=== PATIENT | female | born 1940 | race American Indian/Alaskan Native ===

== ENCOUNTER → 2017-01-29 | Outpatient (CLI) | payer MEDICARE, OTHER ==
[2017-01-29 09:38] LABS: ALANINE AMINOTRANSFERASE 21 U/L (9-52); ALBUMIN 4.1 g/dL (3.5-5.0); ALKALINE PHOSPHATASE 56 U/L (38-126); ANION GAP 10 (5-19); ASPARTATE AMINO TRANSFERASE 24 U/L (14-36); BILIRUBIN,TOTAL 0.9 mg/dL (0.2-1.3); BLOOD UREA NITROGEN 13 mg/dL (7-20); CALCIUM 9.7 mg/dL (8.4-10.2); CARBON DIOXIDE 27 mmol/L (22-30); CHLORIDE 105 mmol/L (98-107); CHOLESTEROL 126.62 mg/dL (0-200); CREATININE RESULT 0.82 mg/dL (0.52-1.25); Direct HDL 66 mg/dL (>40); GLUCOSE 84 mg/dL (75-110); POTASSIUM 4.3 mmol/L (3.6-5.0); SODIUM 142.2 mmol/L (137-145); TOTAL PROTEIN 6.9 g/dL (6.3-8.2); TRIGLYCERIDES 71 mg/dL (<150)
[2017-01-29 09:49] LABS: DIRECT LDL 39 mg/dL (<100)
== END ==
LOC: OD 08:30
PROVIDERS: ATTEND Internal Medicine Cardiovascular Disease
DX: E78.5 Hyperlipidemia, unspecified (principal); I10 Essential (primary) hypertension; Z79.899 Other long term (current) drug therapy
CPT/HCPCS: 36415; 80048; 80061; 80076; 83036; 84443

== ENCOUNTER 2017-04-15 16:12 | Inpatient (IN) | payer MEDICARE, OTHER ==
--- NOTE | 2017-04-15 16:43 | ER Document Report ---
ED Medical Screen (RME) - General Chief Complaint: Abnormal Lab Results Stated Complaint: WEAKNESS Time Seen by Provider: 04/15/17 16:40 Notes: 76-year-old female who states she has felt very "weak and fatigued" for the last month. She also states some black stools. She went to her primary care physician and did a blood on Friday and was told that her "iron was low". She denies any chest pain, shortness of breath, abdominal pain, diarrhea, or fever. She states some nausea without vomiting. She states her last colonoscopy was around 4 years ago. She denies a history of GI bleeding. TRAVEL OUTSIDE OF THE [place] IN LAST 30 DAYS: No - Related Data Allergies/Adverse Reactions: pseudoephedrine HCl [From [employer] [employer]] Allergy (Mild, Verified 04/15/17 16:21) nausea and vomiting Past Medical History - Past Medical History Cardiac Medical History: Reports: Hx Coronary Artery Disease, Hx Hypercholesterolemia, Hx Hypertension, Hx Peripheral Vascular Disease Denies: Hx Heart Attack Pulmonary Medical History: Denies: Hx Asthma Neurological Medical History: Denies: Hx Cerebrovascular Accident, Hx Seizures Renal/ Medical History: Denies: Hx Peritoneal Dialysis GI Medical History: Denies: Hx Hepatitis, Hx Hiatal Hernia, Hx Ulcer Infectious Medical History: Denies: Hx Hepatitis Past Surgical History: Reports: Hx Cardiac Catheterization, Hx Carotid Endarterectomy - Right carotid endarterectomy 2006, Hx Coronary Artery Bypass Graft - Four-vessel bypass 2005, Hx Coronary Stent, Hx Hysterectomy, Hx Open Heart Surgery - quad bypass 10/2006, Hx Orthopedic Surgery. Denies: Hx Mastectomy, Hx Pacemaker - Immunizations Hx Diphtheria, Pertussis, Tetanus Vaccination: Yes Physical Exam - Vital signs Vitals: Temp Pulse Resp BP Pulse Ox 99.0 F 73 18 150/47 H 96 04/15/17 16:25 04/15/17 16:25 04/15/17 16:25 04/15/17 16:25 04/15/17 16:25 Course - Vital Signs Vital signs: Temp Pulse Resp BP Pulse Ox 99.0 F 73 18 150/47 H 96 04/15/17 16:25 04/15/17 16:25 04/15/17 16:25 04/15/17 16:25 04/15/17 16:25
[2017-04-15 18:00] LABS: ABSOLUTE BASOPHILS # (AUTO) 0.1 10^3/uL (0.0-0.2); ABSOLUTE EOSINOPHILS # (AUTO) 0.2 10^3/uL (0.0-0.6); ABSOLUTE LYMPHOCYTES (AUTO) 1.3 10^3/uL (0.5-4.7); ABSOLUTE MONOCYTES (AUTO) 0.4 10^3/uL (0.1-1.4); ABSOLUTE NEUT (AUTO) 1.7 10^3/uL (1.7-8.2); BASOPHILS % (AUTO) 2.8 % (0-2); LYMPHOCYTES % (AUTO) 33.9 % (13-45); MEAN CORPUSCULAR HEMOGLOBIN 20.9 pg (27.0-33.4); MEAN CORPUSCULAR HGB CONC 30.2 g/dL (32.0-36.0); MEAN CORPUSCULAR VOLUME 69 fl (80-97); MONOCYTES % (AUTO) 11.4 % (3-13); RED BLOOD COUNT 2.89 10^6/uL (3.72-5.28); RED CELL DISTRIBUTION WIDTH 19.9 % (11.5-14.0); SEGMENTED NEUTROPHILS % (AUTO) 46.9 % (42-78); WHITE BLOOD COUNT 3.7 10^3/uL (4.0-10.5)
[2017-04-15 18:15] LABS: ANION GAP 9 (5-19); BLOOD UREA NITROGEN 16 mg/dL (7-20); CALCIUM 9.6 mg/dL (8.4-10.2); CARBON DIOXIDE 27 mmol/L (22-30); CHLORIDE 104 mmol/L (98-107); CREATININE RESULT 0.77 mg/dL (0.52-1.25); GLUCOSE 95 mg/dL (75-110); SODIUM 139.7 mmol/L (137-145)
--- NOTE | 2017-04-15 19:33 | ER Document Report ---
ED General - General Mode of Arrival: Ambulatory Information source: Patient TRAVEL OUTSIDE OF THE [place] IN LAST 30 DAYS: No - HPI Patient complains to provider of: Generalized Weakness and abnormal lab work Onset: Other - 4 days ago Associated symptoms: Other - see notes above <RUTH OWUSU - Last Filed: 04/15/17 19:41> <VALERIANOTONO SHERLEY - Last Filed: 04/15/17 22:36> - General Chief Complaint: Abnormal Lab Results Stated Complaint: WEAKNESS Time Seen by Provider: 04/15/17 19:20 Notes: 76 year old female with history of iron deficiency, hypertension, hyperlipidemia , CAD, and on Plavix (secondary to coronary blockages; 2005) presents to the ED complaining of generalized weakness on going for 2 months and anemia secondary to blood work performed at Dr. Chavez's office 4 days ago. Patient additionally states that she has had episodes of dark bloody stool 3 days ago, dizziness, lightheadedness, and nausea, but denies any vomiting. Patient had a colonoscopy with Dr. Cornell and has an appointment with him on 04/25/2017 secondary to the bloody stool. Patient has received blood transfusions during her open heart surgery and reports no complications. (RUTH OWUSU) - Related Data Allergies/Adverse Reactions: pseudoephedrine HCl [From Sudafed] Allergy (Mild, Verified 04/15/17 16:21) nausea and vomiting Home Medications: Current Home Medications Albuterol Sulfate [Ventolin Hfa] 2 puff IH Q4HP PRN 04/15/17 [History] Ascorbic Acid [Vitamin C 500 mg Tablet] 500 mg PO DAILY 04/15/17 [History] Aspirin [Aspirin EC] 81 mg PO DAILY 04/15/17 [History] Atorvastatin Calcium [Lipitor 80 mg Tablet] 80 mg PO QHS 04/15/17 [History] Cholecalciferol (Vitamin D3) [Vitamin D3 1000 Unit Tablet] 1,000 unit PO DAILY 04/15/17 [History] Clopidogrel Bisulfate [Plavix 75 mg Tablet] 75 mg PO DAILY 04/15/17 [History] Cyanocobalamin (Vitamin B-12) [Vitamin B-12 500 mcg Tablet] 1,500 mg PO DAILY [History] Lisinopril [Zestril] 10 mg PO BID 04/15/17 [History] Loratadine [Claritin 10 mg Tablet] 10 mg PO DAILY 04/15/17 [History] [place]-3 Fatty Acids/Fish Oil [Fish Oil 1,000 mg Capsule] 1,000 mg PO BID [History] Past Medical History - General Information source: Patient - Social History Smoking Status: Unknown if Ever Smoked Family History: Reviewed & Not Pertinent Patient has suicidal ideation: No Patient has homicidal ideation: No - Past Medical History Cardiac Medical History: Reports: Hx Coronary Artery Disease, Hx Hypercholesterolemia, Hx Hypertension, Hx Peripheral Vascular Disease GI Medical History: Denies: Hx Ulcer Past Surgical History: Reports: Hx Cardiac Catheterization, Hx Carotid Endarterectomy - Right carotid endarterectomy 2006, Hx Coronary Artery Bypass Graft - Four-vessel bypass 2005, Hx Coronary Stent, Hx Hysterectomy, Hx Open Heart Surgery - quad bypass 10/2006, Hx Orthopedic Surgery - Immunizations Hx Diphtheria, Pertussis, Tetanus Vaccination: Yes Hx Pneumococcal Vaccination: 08/31/12 <RUTH OWUSU - Last Filed: 04/15/17 19:41> Review of Systems - Review of Systems Constitutional: See HPI, Malaise, Weakness, Recent illness - low blood count EENT: No symptoms reported Cardiovascular: See HPI, Dizziness, Lightheaded Respiratory: No symptoms reported Gastrointestinal: See HPI, Nausea, Black stools. denies: Vomiting Genitourinary: No symptoms reported Female Genitourinary: No symptoms reported Musculoskeletal: No symptoms reported Skin: No symptoms reported Hematologic/Lymphatic: No symptoms reported Neurological/Psychological: No symptoms reported -: Yes All other systems reviewed and negative <RUTH OWUSU - Last Filed: 04/15/17 19:41> Physical Exam - Vital signs Interpretation: Normal - General General appearance: Appears well, Alert In distress: None - HEENT Head: Normocephalic, Atraumatic Eyes: Pale conjunctiva Pupils: PERRL Pharynx: Normal Neck: Normal - Respiratory Respiratory status: No respiratory distress Chest status: Nontender Breath sounds: Normal Chest palpation: Normal - Cardiovascular Rhythm: Regular Heart sounds: Normal auscultation Murmur: No - Abdominal Inspection: Normal Distension: No distension Bowel sounds: Normal Tenderness: Nontender Organomegaly: No organomegaly - Rectal Tenderness: No Stool: Black Hemorrhoids: External - Back Back: Normal, Nontender - Extremities General upper extremity: Normal inspection, Nontender, Normal color, Normal ROM , Normal temperature General lower extremity: Normal inspection, Nontender, Normal color, Normal ROM , Normal temperature, Normal weight bearing. No: Jonathan's sign - Neurological Neuro grossly intact: Yes Cognition: Normal Orientation: AAOx4 [place] Coma Scale Eye Opening: Spontaneous [place] Coma Scale Verbal: Oriented [place]ce Coma Scale Motor: Obeys Commands Alyce Coma Scale Total: 15 Speech: Normal Motor strength normal: LUE, RUE, LLE, RLE Sensory: Normal - Psychological Associated symptoms: Normal affect, Normal mood - Skin Skin Temperature: Warm Skin Moisture: Dry Skin Color: Normal <TONO BAL - Last Filed: 04/15/17 22:36> - Vital signs Vitals: Temp Pulse Resp BP Pulse Ox 99.0 F 73 18 150/47 H 96 04/15/17 16:25 04/15/17 16:25 04/15/17 16:25 04/15/17 16:25 04/15/17 16:25 Course - Laboratory Result Diagrams: 04/15/17 16:45 04/15/17 16:45 - Consults Dr. Cornell Time consulted: 19:28 Dr. Flores Time consulted: 19:30 <RUTH OWUSU - Last Filed: 04/15/17 19:41> - Laboratory Result Diagrams: 04/15/17 16:45 04/15/17 16:45 <TONO BAL - Last Filed: 04/15/17 22:36> - Re-evaluation Re-evalutation: 04/15/17 Patient is a 76-year-old female who comes in after having dark and then bloody stool at home. Patient states that she has not had any bloody stool today, just dark. Patient does have dark stool on exam. Her globin is 6. Patient has been discussed with her GI doctor who will see her in consult. She is been discussed with the hospitalist service and will be admitted to the [facility]. Vitals are stable. No bright red blood per rectum. No vomiting. No abdominal pain. Patient appears well other than being pale. Stable at time of admission. (TONO BAL) - Vital Signs Vital signs: Temp Pulse Resp BP Pulse Ox 97.6 F 70 16 174/67 H 96 04/15/17 22:21 04/15/17 22:21 04/15/17 22:21 04/15/17 22:21 04/15/17 22:21 - Laboratory Laboratory results interpreted by me: 04/15/17 04/15/17 16:45 16:45 WBC 3.7 L RBC 2.89 L Hgb 6.0 L Hct 20.0 L MCV 69 L MCH 20.9 L MCHC 30.2 L RDW 19.9 H Basophils % 2.8 H Crossmatch See Detail - Consults Dr. Cornell Reason for consultation: 04/15/17 19:28 Patient was discussed with Dr. Cornell who agrees to consult the patient. (RUTH OWUSU) Dr. Flores Reason for consultation: 04/15/17 19:30 Patient was discussed with Dr. Flores who agrees to admit the patient and have Dr. Cornell consult the patient. (RUTH OWUSU) Critical Care Note - Critical Care Note Total time excluding time spent on procedures (mins): 40 - evaluation and management of symptomatic anemia, initiation of transfusion, consultation with specialist, coordination of admission <TONO BAL - Last Filed: 04/15/17 22:36> Discharge <RUTH OWUSU - Last Filed: 04/15/17 19:41> - Discharge Admitting Provider: Alexsander Flores Unit Admitted: I[facility]U <TONO BAL - Last Filed: 04/15/17 22:36> - Discharge Clinical Impression: Secondary anemia GI bleed Qualifiers: GI bleed type/associated pathology: unspecified gastrointestinal hemorrhage type Qualified Code(s): K92.2 - Gastrointestinal hemorrhage, unspecified Disposition: ADMITTED INPATIENT Scribe Attestation: 04/15/17 22:36 I personally performed the services described in the documentation, reviewed and edited the documentation which was dictated to the scribe in my presence, and it accurately records my words and actions. (TONO BAL) Scribe Documentation - Scribe Written by Scribe:: Sergio Cruz, 04/15/2017 1936 acting as scribe for :: Valeriano <RUTH OWUSU - Last Filed: 04/15/17 19:41>
[2017-04-15] MEDS ORDERED: NORMAL SALINE 250 ML IV PRN (19:34)
[2017-04-15] MEDS ORDERED: BISACODYL 5 MG TABEC PO ONE (21:00)
[2017-04-15 22:03] LABS: ADD ON TESTING BLD IN LAB ACKNOWLEDGE
[2017-04-15 22:13] LABS: PARTIAL THROMBOPLASTIN TIME 30.3 SEC (23.5-35.8)
--- NOTE | 2017-04-15 22:14 | EKG REPORT ---
SEVERITY:- BORDERLINE ECG - SINUS RHYTHM BORDERLINE T ABNORMALITIES, ANT-LAT LEADS : Confirmed by: Kizzy De La Torre MD 15-Apr-2017 22:13:40
[2017-04-15] MEDS: NORMAL SALINE 250 ML IV PRN (22:18)
[2017-04-15 22:34] LABS: ALANINE AMINOTRANSFERASE 25 U/L (9-52); ALBUMIN 3.7 g/dL (3.5-5.0); ALKALINE PHOSPHATASE 52 U/L (38-126); ASPARTATE AMINO TRANSFERASE 21 U/L (14-36); BILIRUBIN,DIRECT 0.2 mg/dL (0.0-0.4); BILIRUBIN,TOTAL 0.6 mg/dL (0.2-1.3); MAGNESIUM 1.7 mg/dL (1.6-2.3); TOTAL PROTEIN 6.1 g/dL (6.3-8.2)
[2017-04-15] MEDS ORDERED: NORMAL SALINE 1000 ML 1,000 ML IV PRN (22:38)
[2017-04-15] MEDS ORDERED: ACETAMINOPHEN 325 MG TABLET PO PRN (22:45)
[2017-04-15 22:49] LABS: FERRITIN 5.57 ng/mL (11.1-264.0)
[2017-04-15] MEDS ORDERED: ALBUTEROL SULFATE HFA (90 MCG/PUFF) 200 PUFF/8.5 GM MDI IH PRN (22:51)
--- NOTE | 2017-04-15 23:06 | PDOC H&P ---
History of Present Illness Admission Date/PCP: 04/15/17 22:29 PCP mG Rolle Patient complains of: weakness History of Present Illness: MICHELLE VELASQUEZ is a 76 year old -Citizen Of [place] female, with known coronary artery disease, having undergone a four-vessel bypass in 2005, also status post implantation of several stents, with last stent implant in May 01 of last year. Presents to the emergency room for evaluation of a 2 month history of generalized weakness and occasional lightheadedness, along with anemia per blood work performed at her primary care provider's office 4 days ago. Had a dark bloody stool 3 days ago. Was not frankly melenic, by her description. Associated near-syncope, but no fly syncope. No chest or abdominal pain, fever or chills. No prior such abnormal stools. No history of peptic ulcer disease. Prior to my seeing the patient, the emergency room physician did speak with Dr. Cornell, who actually has patient scheduled for colonoscopy the of this month. He has agreed to see the patient in consultation. She has been hemodynamically stable. Patient has been discussed with emergency room physician who evaluated the patient. . Laboratory results are listed in [employer] and are reviewed. EKG reviewed. And compared to a prior tracing from May 05 of last year. Social history/personal habits: . Lives alone. One daughter. Retired. Former smoker; no tobacco use since last year. No alcohol or illicit drug use. Allergies/adverse reactions are listed in [employer] and are reviewed. Home medications Home medications initially autopopulated into [employer] may not accurately reflect patient's true medications, dosages, and/or frequencies. trim technician has reconciled medications. REVIEW OF SYSTEMS: Constitutional: No fever or chills. Eyes: Wears glasses. ENT: No swallowing problems or complaints. No hearing problems or complaints. Pulmonary: No current complaints. Cardiovascular: No current complaints, including chest pain. Gastrointestinal: See history and present illness. Skin: No current complaints, including rashes. Hematologic: No unusual easy bruising or bleeding. See history and present illness. Neurologic: No current complaints, including numbness or tingling. Musculoskeletal: Joint pain from arthritis. Psychiatric: No current complaints, including anxiety or depression. Endocrine: No current complaints, including polyuria. Genitourinary: No current complaints, including dysuria. PHYSICAL EXAMINATION: 5 feet 7 inches tall. 66.2 kg. BMI 22.9 kg/m. Blood pressure 163/54. Pulse 75 and regular. 97% saturation on room air. Respirations are 22 and unlabored. Temperature 97.8. Thin otherwise well-developed -Citizen [place] female appearing approximately her stated age. Pleasant awake alert and cooperative. No obvious distress other than perhaps somewhat anxious. Skin is warm and dry. No grossly obvious evidence of rash in areas of skin examined. No subcutaneous nodules palpated. ENT: Hearing grossly normal to normal conversation. Tongue midline on protrusion pink and slightly tacky. Eyes: No scleral icterus. Pupils equal and reactive to light at 4 mm. pale conjunctivae. Neck is supple and nontender to gentle active range of motion and palpation. Midline trachea. No palpable thyroid nodule mass enlargement or tenderness. Lymphatic: No palpable cervical or clavicular nodes. Neck and lymphatic exams limited by patient body habitus. Psychiatric: Reasonable insight into acute and chronic medical issues. Oriented to time location and why here. Lungs: Auscultation reveals clear and equal breath sounds bilaterally. No use of accessory respiratory muscles. Cardiovascular: Heart regular rate and rhythm, without gallop murmur or rub. No carotid or abdominal aortic bruits. No ankle or pedal edema. Faintly palpable dorsalis pedis pulses. Abdomen: soft, slightly distended nontender with positive bowel sounds. Unable to adequately evaluate abdomen for masses or organomegaly due to distention. Extremities: Feet are warm and dry. No calf tenderness to compression. No grossly obvious visual evidence of calf swelling. Gentle manipulation of lower extremities fails to reveal any obvious evidence of injury or instability to knees hips or ankles. Neurologic: Moves upper extremities grossly normally. Patellar reflexes absent. Absent Babinski. Light touch is intact at feet. Dorsiflexion and plantarflexion of feet 5 / 5 and symmetric. Past Medical History Cardiac Medical History: Reports: Coronary Artery Disease, Hyperlipidema, Hypertension, Peripheral Vascular Disease Denies: Congestive Heart Failure, DVT, Myocardial Infarction, Pulmonary Embolism Pulmonary Medical History: Reports: Chronic Obstructive Pulmonary Disease (COPD) Denies: Asthma, Sleep Apnea EENT Medical History: Reports: Eyes - Glasses Denies: Ears, Throat Neurological Medical History: Denies: Hemorrhagic CVA, Ischemic CVA, Seizures Endocrine Medical History: Denies: Diabetes Mellitus Type 1, Diabetes Mellitus Type 2, Hyperthyroidism, Hypothyroidism Renal/ Medical History: Reports: None GI Medical History: Denies: Cirrhosis, Gastroesophageal Reflux Disease, Hepatitis, Hiatal Hernia , Peptic Ulcer Disease Musculoskeltal Medical History: Reports: Arthritis Skin Medical History: Reports: None Psychiatric Medical History: Denies: Alcohol Dependency, Depression, General Anxiety Disorder, Substance Abuse, Tobacco Dependency Hematology: Denies: Anemia, Sickle Cell Disease Infectious Medical History: Denies: Clostridium Difficile, Hepatitis B, Hepatitis C, Methicillin- Resistant Staph Aureus Past Surgical History Past Surgical History: Reports: Carotid Endarterectomy - Right carotid endarterectomy 2006, Coronary Artery Bypass Graft - Four-vessel bypass 2005, Coronary Stent - Multiple; last implant May 01, 2016, Hysterectomy, Orthopedic Surgery Denies: Amputation, Mastectomy, Pacemaker Social History Information Source: Patient, Emergency Med Personnel, [facility] Records Lives with: Alone Smoking Status: Former Smoker Frequency of Alcohol Use: None Drugs: None Family History Family History: Reviewed & Not Pertinent Parental Family History Reviewed: Yes - mother of oral cancer. Father tuberculosis; negative patient TB check Children Family History Reviewed: Yes - Daughter is healthy Sibling(s) Family History Reviewed.: Yes - Brother and 2 sisters of lung problems. Medication/Allergy Home Medications: Albuterol Sulfate [Ventolin Hfa] 2 puff IH Q4HP PRN 04/15/17 Ascorbic Acid [Vitamin C 500 mg Tablet] 500 mg PO DAILY 04/15/17 Atorvastatin Calcium [Lipitor 80 mg Tablet] 80 mg PO QHS 04/15/17 Cholecalciferol (Vitamin D3) [Vitamin D3 1000 Unit Tablet] 1,000 unit PO DAILY 04/15/17 Clopidogrel Bisulfate [Plavix 75 mg Tablet] 75 mg PO DAILY 04/15/17 Cyanocobalamin (Vitamin B-12) [Vitamin B-12 500 mcg Tablet] 1,500 mg PO DAILY Lisinopril [Zestril] 10 mg PO BID 04/15/17 Loratadine [Claritin 10 mg Tablet] 10 mg PO DAILY 04/15/17 [place]-3 Fatty Acids/Fish Oil [Fish Oil 1,000 mg Capsule] 1,000 mg PO BID Ferrous Sulfate [Feosol 325 mg Tablet] 325 mg PO DAILY #30 tab 04/17/17 Pantoprazole Sodium [Protonix] 40 mg PO BID #60 tablet. 04/17/17 Allergies/Adverse Reactions: pseudoephedrine HCl [From Sudafed] Allergy (Mild, Verified 04/15/17 22:52) nausea and vomiting Physical Exam Vital Signs: Temp Pulse Resp BP Pulse Ox 97.6 F 70 16 174/67 H 96 04/15/17 22:21 04/15/17 22:21 04/15/17 22:21 04/15/17 22:21 04/15/17 22:21 Assessment & Plan - Diagnosis (1) Heme + stool Is this a current diagnosis for this admission?: YesPlan: 2 units to be transfused; ER physician has signed blood transfusion permit. More transfusion as necessary. Dr. Cornell of gastroenterology is aware patient has been admitted and will see in consultation. I have strongly encouraged patient not to get out of bed without notifying staff , to avoid a fall with injury. Knee high SCDs for DVT prophylaxis; with symptomatic anemia requiring transfusion, along with heme positive stool, we'll obviously forego Lovenox or heparin at this point in time. We'll also hold aspirin and Plavix get this point in time. Cardiology consult concerning continuation of her Plavix. Impression and plans were discussed with patient, who concurs. Time spent in evaluation and management of patient: 65 minutes. (2) Stented coronary artery Is this a current diagnosis for this admission?: Yes (3) HLD (hyperlipidemia) Qualifiers: Hyperlipidemia type: unspecified Qualified Code(s): E78.5 - Hyperlipidemia, unspecified Is this a current diagnosis for this admission?: YesPlan: Resume home medications as appropriate once these have been reviewed. (4) HTN (hypertension) Qualifiers: Hypertension type: essential hypertension Qualified Code(s): I10 - Essential (primary) hypertension Is this a current diagnosis for this admission?: YesPlan: Resume home medications as appropriate once these have been reviewed. (5) Symptomatic anemia Is this a current diagnosis for this admission?: Yes - Inpatient Certification Based on my medical assessment, after consideration of the patient's comorbidities, presenting symptoms, or acuity I expect that the services needed warrant INPATIENT care.: Yes I certify that my determination is in accordance with my understanding of Medicare's requirements for reasonable and necessary INPATIENT services [42 CFR 412.3e].: Yes Medical Necessity: Need Close Monitoring Due to Risk of Patient Decompensation, Need For Continuous Telemetry Monitoring, Risk of Complication if Not Cared For in Hospital, Risk of Diagnosis Which Will Require Inpatient Eval/Care/Monitoring Post Hospital Care: D/C or Transfer Summary
[2017-04-15] MEDS: SUCRALFATE 1 GM TABLET PO SCH (23:28)
[2017-04-16] MEDS: NORMAL SALINE 250 ML IV PRN (00:58)
[2017-04-16 03:03] LABS: ABSOLUTE BASOPHILS # (AUTO) 0.1 10^3/uL (0.0-0.2); ABSOLUTE EOSINOPHILS # (AUTO) 0.3 10^3/uL (0.0-0.6); ABSOLUTE LYMPHOCYTES (AUTO) 1.6 10^3/uL (0.5-4.7); ABSOLUTE MONOCYTES (AUTO) 0.5 10^3/uL (0.1-1.4); ABSOLUTE NEUT (AUTO) 3.6 10^3/uL (1.7-8.2); BASOPHILS % (AUTO) 1.5 % (0-2); EOSINOPHILS % (AUTO) 4.4 % (0-6); HGB HCT DIFFERENCE -1.1; LYMPHOCYTES % (AUTO) 26.3 % (13-45); MEAN CORPUSCULAR HEMOGLOBIN 23.7 pg (27.0-33.4); MONOCYTES % (AUTO) 7.7 % (3-13); RED BLOOD COUNT 3.92 10^6/uL (3.72-5.28); RED CELL DISTRIBUTION WIDTH 21.7 % (11.5-14.0); SEGMENTED NEUTROPHILS % (AUTO) 60.1 % (42-78)
[2017-04-16 03:16] LABS: ANION GAP 8 (5-19); BLOOD UREA NITROGEN 14 mg/dL (7-20); CALCIUM 9.5 mg/dL (8.4-10.2); CARBON DIOXIDE 27 mmol/L (22-30); CHLORIDE 107 mmol/L (98-107); CREATININE RESULT 0.77 mg/dL (0.52-1.25); GLUCOSE 83 mg/dL (75-110); POTASSIUM 4.1 mmol/L (3.6-5.0); SODIUM 141.5 mmol/L (137-145)
[2017-04-16 03:21] LABS: HEMOGLOBIN 9.3 g/dL (12.0-15.5)
[2017-04-16 03:22] LABS: MEAN CORPUSCULAR VOLUME 74 fl (80-97)
[2017-04-16 03:26] LABS: ANISOCYTOSIS 3+; HYPOCHROMASIA 1+; MICROCYTOSIS 1+; OVALOCYTES SLIGHT; POIKILOCYTOSIS 1+; POLYCHROMASIA SLIGHT; TOXIC GRANULATION SLIGHT
[2017-04-16] MEDS: SUCRALFATE 1 GM TABLET PO SCH ×3 (06:00→18:00)
[2017-04-16] MEDS ORDERED: PEG 3350/NA SULF,BICARB,CL/KCL 4000 ML PO ONE (07:00)
[2017-04-16] MEDS: CYANOCOBALAMIN (VITAMIN B-12) 1,000 MCG TABLET PO SCH (10:00)
[2017-04-16] MEDS: CHOLECALCIFEROL (D3) 1,000 UNIT TABLET PO SCH (10:00)
[2017-04-16] MEDS: PANTOPRAZOLE SODIUM 40 MG VIAL IV SCH (10:00)
[2017-04-16] MEDS: LISINOPRIL 10 MG TABLET PO SCH ×2 (10:00→18:00)
[2017-04-16] MEDS ORDERED: MAGNESIUM CITRATE 296 ML BOTTLE ONE (10:19)
[2017-04-16] MEDS ORDERED: NALOXONE HCL INJ/PF 0.4 MG/1 ML SDV ONE (16:06)
[2017-04-16] MEDS ORDERED: MIDAZOLAM 2 MG/2 ML INJ ONE (16:06)
[2017-04-16] MEDS ORDERED: FENTANYL CITRATE INJ/PF 100 MCG/2 ML AMPUL ONE (16:07)
[2017-04-16] MEDS ORDERED: EPINEPHRINE INJ 1 MG/10 ML DISP.SYRIN ONE (16:07)
[2017-04-16] MEDS ORDERED: FLUMAZENIL INJ 0.5 MG/5 ML VIAL IV ONE (16:07)
[2017-04-16] MEDS ORDERED: GLUCAGON,HUMAN RECOMB 1 MG INJ ONE (16:07)
--- NOTE | 2017-04-16 16:40 | PROGRESS NOTE E ---
Progress Note NAME: MICHELLE VELASQUEZ : 1940 AGE: 76Y DATE: 04/16/2017 ROOM: 330 SUBJECTIVE: The patient was admitted last night by Dr. Flores, the covering prepress proofer, for bright red blood per rectum and presumptive lower GI bleed with a hemoglobin at that time of 6. She is now status post 2 units of packed red blood cells and tolerated it without difficulty. She has no complaints to me at present, though reports still having bloody stools. She denies abdominal pain, chest pain, palpitations, shortness of breath, fevers, or chills. Case discussed with the nurse at the bedside, nurses notes reviewed. OBJECTIVE: VITAL SIGNS: Stable. GENERAL: I find her resting in bed without difficulty or distress. She is alert and oriented to person, place, and time, color is good, and she is not diaphoretic. She is breathing easily without difficulty. LUNGS: Clear to auscultation. CARDIAC: Regular rate and rhythm. She does have a 2/6 holosystolic murmur heard best at the right second intercostal space. It is nonradiating in nature. ABDOMEN: Soft, nondistended. She does have point tenderness to the epigastrium on deep palpation that she states "has been there for many years" and is no different than usual. I cannot palpate any masses or organomegaly. She has good bowel sounds throughout the abdomen. 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 I do not appreciate an abdominal bruit. EXTREMITIES: Warm with good strength, 5/5, in the upper and lower extremities and good muscle tone. LABS: Reviewed, a repeat H and H status post transfusion is still pending as of this dictation. ASSESSMENT: 1. GASTROINTESTINAL BLEED, PRESUMPTIVE LOWER. 2. ACUTE BLOOD LOSS ANEMIA. 3. CORONARY ARTERY DISEASE ON DUAL ANTIPLATELET THERAPY WITH STENT PLACEMENT IN MAY 2015. PLAN: Dr. Cornell has been consulted and beginning bowel prep, according to the nurses, in anticipation of lower endoscopy at some point in the next 24 hours. We will continue to trend our H and H every 8 hours and transfuse as needed. We will continue Protonix b.i.d. We will continue to hold the Plavix and aspirin therapy. Awaiting Dr. Aguilar, the staff anesthetist's, evaluation on whether it is necessary to continue aspirin and Plavix going forward. DICTATING PHYSICIAN: STU RAMOS M.D. [id number] PHY#: [id number] ID: [id number] JOB#: [id number] ACCT: [id number] cc: >
[2017-04-16] MEDS ORDERED: MIDAZOLAM 2 MG/2 ML INJ IV ONE ×2 (19:23→19:37)
[2017-04-16] MEDS ORDERED: FENTANYL CITRATE INJ/PF 100 MCG/2 ML AMPUL IV ONE ×2 (19:25→19:35)
[2017-04-16] MEDS ORDERED: ATORVASTATIN CALCIUM 80 MG TABLET PO SCH (22:00)
--- NOTE | 2017-04-16 22:39 | PDOC CONSULTATION ---
Consultation Consult Date: 04/16/17 Attending physician:: EVARISTO VILLAR Consult reason:: Coronary artery disease, PVD History of Present Illness Admission Date/PCP: 04/15/17 22:36 Patient complains of: GI bleed History of Present Illness: MICHELLE VELASQUEZ is a 76 year old -[place] female, with known coronary artery disease, having undergone a 3-vessel bypass in 2005, also status post implantation of several stents, with last stent implant in May 01 of last year. Presents to the emergency room for evaluation of a 2 month history of generalized weakness and occasional lightheadedness, along with anemia secondary to blood work performed at her primary care provider's office 4 days ago. Had a dark bloody stool 3 days ago. Was not frankly melenic, by her description. Associated near-syncope, but no fly syncope. No chest or abdominal pain, fever or chills. No prior such abnormal stools. No history of peptic ulcer disease. She has been hemodynamically stable. This history was reviewed, confirmed and supplemented. Patient denied any recent chest discomfort. Patient does have shortness of breath, fatigue and tiredness on exertion. Patient also gives history of habitual snoring and never been tested for sleep apnea. Past Medical History Cardiac Medical History: Reports: Coronary Artery Disease, Hyperlipidema, Hypertension, Peripheral Vascular Disease Denies: Congestive Heart Failure, DVT, Myocardial Infarction, Pulmonary Embolism Pulmonary Medical History: Reports: Chronic Obstructive Pulmonary Disease (COPD) Denies: Asthma, Sleep Apnea EENT Medical History: Reports: Eyes - Glasses Denies: Ears, Throat Neurological Medical History: Denies: Hemorrhagic CVA, Ischemic CVA, Seizures Endocrine Medical History: Denies: Diabetes Mellitus Type 1, Diabetes Mellitus Type 2, Hyperthyroidism, Hypothyroidism Renal/ Medical History: Reports: None GI Medical History: Denies: Cirrhosis, Gastroesophageal Reflux Disease, Hepatitis, Hiatal Hernia , Peptic Ulcer Disease Musculoskeltal Medical History: Reports: Arthritis Skin Medical History: Reports: None Psychiatric Medical History: Denies: Alcohol Dependency, Depression, General Anxiety Disorder, Substance Abuse, Tobacco Dependency Hematology: Denies: Anemia, Sickle Cell Disease Infectious Medical History: Denies: Clostridium Difficile, Hepatitis B, Hepatitis C, Methicillin- Resistant Staph Aureus Past Surgical History Past Surgical History: Reports: Cardiac Catheterization, Carotid Endarterectomy - Right carotid endarterectomy 2006, Coronary Artery Bypass Graft - Four-vessel bypass 2006, Coronary Stent - Multiple; last implant May 01, 2016, Hysterectomy , Orthopedic Surgery Denies: Amputation, Mastectomy, Pacemaker Social History Information Source: Patient Lives with: Alone Smoking Status: Former Smoker Frequency of Alcohol Use: None Drugs: None - Advance Directive Resuscitation Status: Full Code Surrogate healthcare decision maker:: Patient's daughter is surrogate decision-maker Family History Family History: CAD Parental Family History Reviewed: Yes Children Family History Reviewed: Yes Sibling(s) Family History Reviewed.: Yes Medication/Allergy Home Medications: Albuterol Sulfate [Ventolin Hfa] 2 puff IH Q4HP PRN 04/15/17 Ascorbic Acid [Vitamin C 500 mg Tablet] 500 mg PO DAILY 04/15/17 Atorvastatin Calcium [Lipitor 80 mg Tablet] 80 mg PO QHS 04/15/17 Cholecalciferol (Vitamin D3) [Vitamin D3 1000 Unit Tablet] 1,000 unit PO DAILY 04/15/17 Clopidogrel Bisulfate [Plavix 75 mg Tablet] 75 mg PO DAILY 04/15/17 Cyanocobalamin (Vitamin B-12) [Vitamin B-12 500 mcg Tablet] 1,500 mg PO DAILY Lisinopril [Zestril] 10 mg PO BID 04/15/17 Loratadine [Claritin 10 mg Tablet] 10 mg PO DAILY 04/15/17 Sanborn-3 Fatty Acids/Fish Oil [Fish Oil 1,000 mg Capsule] 1,000 mg PO BID Ferrous Sulfate [Feosol 325 mg Tablet] 325 mg PO DAILY #30 tab 04/17/17 Pantoprazole Sodium [Protonix] 40 mg PO BID #60 tablet. 04/17/17 Allergies/Adverse Reactions: pseudoephedrine HCl [From Sudafed] Allergy (Mild, Verified 04/15/17 22:52) nausea and vomiting Review of Systems Review of Systems: Please see history of present illness and past medical history as wall. Constitutional: No fever or chills reported. Head : No recent chronic headaches, recent head injury. Eyes: No recent eye pain, diplopia, redness, discharge, acute visual changes. Ears: No recent chronic ear pain, acute hearing loss, ear discharge. Oral cavity: No recent ulcerations, bleeding, oral cavity discomfort. Neck: No recent acute neck pain reported. Hematologic: No recent easy bruising or bleeding or hematologic malignancy reported. Lymphatic: No recent lymphatic malignancy, chronic lymphadenopathy reported yet Cardiovascular system review: See history of present illness. Respiratory system review: No recent chronic cough, hemoptysis, blood clots in the lungs reported. Mild Shortness of breath on exertion Gastrointestinal system review: Negative for any recent acute or chronic abdominal pain, positive for melena, recent change in bowel habits. Genitourinary system review: No recent acute or chronic hematuria, flank pain, UTI etc. reported. Skin system review: Negative for any recent abnormal bruising, no rash, no pruritus reported. Neurologic: No prior history of strokes, mini strokes, seizure disorder. Psychologic: No history of major psychosis or major depression reported. Musculoskeletal: Minor aches and pains reported. No acute joint swelling reported. Endocrine: No recent polyuria, polydipsia, recent heat or cold intolerance. Physical Exam Vital Signs: Temp Pulse Resp BP Pulse Ox 98.0 F 65 20 147/44 H 96 04/16/17 20:50 04/16/17 20:50 04/16/17 20:50 04/16/17 20:50 04/16/17 20:50 Intake & Output 04/15/17 04/16/17 04/17/17 06:59 06:59 06:59 Intake Total 300 Balance 300 Exam: GENERAL: well-nourished and in no acute distress. Alert and oriented x3 HEAD: Atraumatic, normocephalic. EYES: Pupils equal round and reactive to light, extraocular movements intact, sclera anicteric, conjunctiva are normal. ENT: TMs normal, nares patent, oropharynx clear without exudates. Moist mucous membranes. No oral ulcerations or bleeding gums noted NECK: supple without lymphadenopathy. Trachea is central. No cervical or axillary lymphadenopathy noted. Carotids are 2+, JVD WNL LUNGS: Respiration seems nonlabored, no significant accessory muscle action noted. Breath sounds clear to auscultation bilaterally and equal noted. No wheezes rales or rhonchi noted. No significant dullness noted on percussion. CHEST: Palpation of the chest wall shows no significant chest wall tenderness. No other significant abnormalities noted. 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 ABDOMEN: Soft, no significant tenderness appreciated, normoactive bowel sounds. No guarding, no rebound. No rigidity noted . No masses appreciated. EXTREMITIES: Pedal pulses are 1-2+, no calf tenderness noted. No clubbing or cyanosis.trace to 1+ pedal edema noted NEUROLOGICAL: Focused neurological exam showed no significant neurologic deficit. Normal speech, no focal weakness appreciated. PSYCH: Normal mood, normal affect. Judgment and insight within normal limits. SKIN: No significant ecchymosis, rash, ulcerations or signs of pruritus noted. MUSCULOSKELETAL EXAM: No significant joint swelling noted. Results Laboratory Results: 04/16/17 02:31 04/16/17 02:31 04/16/17 04/16/17 02:31 02:31 WBC 6.0 RBC 3.92 Hgb 9.3 L D Hct 29.0 L MCV 74 L D MCH 23.7 L MCHC 32.0 RDW 21.7 H Plt Count 168 Seg Neutrophils % 60.1 Lymphocytes % 26.3 Monocytes % 7.7 Eosinophils % 4.4 Basophils % 1.5 Absolute Neutrophils 3.6 Absolute Lymphocytes 1.6 Absolute Monocytes 0.5 Absolute Eosinophils 0.3 Absolute Basophils 0.1 Sodium 141.5 Potassium 4.1 Chloride 107 Carbon Dioxide 27 Anion Gap 8 BUN 14 Creatinine 0.77 Est GFR ( Amer) > 60 Est GFR (Non-Af Amer) > 60 Glucose 83 Calcium 9.5 EKG Comments: Sinus rhythm, minor nonspecific ST segment changes noted lateral chest lead but when compared to EKG from last year this is relatively unchanged. Assessment & Plan - Diagnosis (1) CAD (coronary artery disease) Qualifiers: Coronary Disease-Associated Artery/Lesion type: unspecified vessel or lesion type [place] vs. transplanted heart: [place] heart Associated angina: angina presence unspecified Qualified Code(s): I25.10 - Atherosclerotic heart disease of [place] coronary artery without angina pectoris Is this a current diagnosis for this admission?: Yes (2) GI bleed Qualifiers: GI bleed type/associated pathology: unspecified gastrointestinal hemorrhage type Qualified Code(s): K92.2 - Gastrointestinal hemorrhage, unspecified Is this a current diagnosis for this admission?: Yes (3) HLD (hyperlipidemia) Qualifiers: Hyperlipidemia type: unspecified Qualified Code(s): E78.5 - Hyperlipidemia, unspecified Is this a current diagnosis for this admission?: Yes (4) HTN (hypertension) Qualifiers: Hypertension type: essential hypertension Qualified Code(s): I10 - Essential (primary) hypertension Is this a current diagnosis for this admission?: Yes (5) Symptomatic anemia Is this a current diagnosis for this admission?: Yes (6) Stented coronary artery Is this a current diagnosis for this admission?: Yes - Notes Notes: Coronary artery disease: Patient seems to be symptomatically stable. Patient does have symptoms of dyspnea which is probably related to anemia and possibly deconditioning. Will order an 2D echo. Patient should receive beta-teresa, TAINA inhibitor, high potency statin, antiplatelet therapy. However in view of recent GI bleed, recommend stopping aspirin but continuing Plavix. If GI evaluation shows active ongoing bleeding then Plavix could be stopped for a week or 2 and then restarted. GI bleed: Being evaluated by roll line operator. Dyslipidemia: Continue aggressive statin therapy. Hypertension: Reasonably well controlled. Blood pressure goal in this patient is 135/85 or less. This was discussed with the patient. Currently blood pressure under reasonable control. Better medication for this patient are TAINA inhibitor/ARB/beta teresa etc. discussed side effects of uncontrolled hypertension and also severe hypotension. Symptomatic anemia: Patient status post transfusion. Coronary stent: Recommend continuing Plavix but stopping aspirin. If active bleeding then discontinue Plavix for a week or 2. Patient gives history of loud habitual snoring therefore would benefit from evaluation with a sleep study. This was discussed with the patient. She is able to agreeable to schedule this as an outpatient. - Time Time Spent: 50 to 70 Minutes - CODE STATUS was discussed, patient remains full code. Surrogate decision-maker patient's daughter. Multiple medical problems were addressed. More than 50% of the time spent coordinating care, discussing management plans with involved caregivers. Management plans discussed with involved personnels. Medical decision making was of moderate to high complexity , patient's has multiple severe comorbidities. Medications reviewed and adjusted accordingly: Yes
[2017-04-17] MEDS: PANTOPRAZOLE SODIUM 40 MG VIAL IV SCH ×2 (00:02→09:56)
[2017-04-17] MEDS: SUCRALFATE 1 GM TABLET PO SCH ×4 (00:03→17:39)
[2017-04-17 09:23] LABS: HEMATOCRIT 33.1 % (36.0-47.0); HEMOGLOBIN 10.3 g/dL (12.0-15.5); HGB HCT DIFFERENCE -2.2; MEAN CORPUSCULAR HGB CONC 31.3 g/dL (32.0-36.0); MEAN CORPUSCULAR VOLUME 74 fl (80-97); RED BLOOD COUNT 4.49 10^6/uL (3.72-5.28); RED CELL DISTRIBUTION WIDTH 21.6 % (11.5-14.0); WHITE BLOOD COUNT 5.2 10^3/uL (4.0-10.5)
--- NOTE | 2017-04-17 09:45 | OPERATIVE REPORT E ---
Operative Report NAME: MICHELLE VELASQUEZ : 1940 AGE: 76Y DATE OF SURGERY: 04/16/2017 ROOM: 330 PREOPERATIVE DIAGNOSIS: GI bleed. POSTOPERATIVE DIAGNOSES: 1. Mild to moderate antral gastritis. 2. Sigmoid diverticulosis with spasm. 3. Limited colonoscopy. OPERATION: 1. Esophagogastroduodenoscopy with biopsy. 2. Colonoscopy up to ascending colon. SURGEON: DIEGO ALMONTE M.D. ANESTHESIA: Versed 3 mg and fentanyl 100 mcg. TISSUE REMOVED OR ALTERED: Antral biopsy. PROCEDURE: After informed consent was obtained from the patient, conscious sedation was achieved. The upper endoscope was inserted into the esophagus and into the duodenum. The duodenum was normal. There was mild to moderate erythema noted in the antrum and biopsy was taken. The rest of the stomach and esophagus were normal. The colonoscope was inserted and advanced to the sigmoid colon. I could not advance the colonoscope through due sigmoid diverticulosis and spasm. The scope was then changed to an EGD scope, which I advanced through the ascending colon. No abnormality was identified in the colon except for the diverticulosis. She also has some hemorrhoids. She tolerated the procedure well. PLAN: Will repeat a colonoscopy as outpatient. She will also undergo capsule endoscopy of the small bowel. DICTATING PHYSICIAN: DIEGO ALMONTE M.D. [id number] [facility]#: [id number] 2005 ID: [id number] JOB#: [id number] ACCT: [id number] cc:DIEGO ALMONTE M.D. >
[2017-04-17] MEDS: CHOLECALCIFEROL (D3) 1,000 UNIT TABLET PO SCH (09:54)
[2017-04-17] MEDS: LISINOPRIL 10 MG TABLET PO SCH ×2 (09:55→17:39)
[2017-04-17] MEDS: CYANOCOBALAMIN (VITAMIN B-12) 1,000 MCG TABLET PO SCH (09:55)
[2017-04-17 10:05] LABS: HEMATOCRIT 30.6 % (36.0-47.0); HEMOGLOBIN 9.3 g/dL (12.0-15.5); HGB HCT DIFFERENCE -2.7; MEAN CORPUSCULAR HEMOGLOBIN 22.8 pg (27.0-33.4); MEAN CORPUSCULAR HGB CONC 30.6 g/dL (32.0-36.0); MEAN CORPUSCULAR VOLUME 75 fl (80-97); WHITE BLOOD COUNT 5.7 10^3/uL (4.0-10.5)
--- NOTE | 2017-04-17 10:25 | CONSULTATION REPORT E ---
Consultation Report NAME: MICHELLE VELASQUEZ : 1940 AGE: 76Y DATE: 04/15/2017 330 A TO: DIEGO ALMONTE M.D. FROM: EVARISTO VILLAR M.D. Requesting Physician Consultation requested by hospitalist. HISTORY OR PRESENT ILLNESS: A 76-year-old patient admitted through the emergency room with GI bleed and anemia. According to the patient, she has been seeing blood off and on for the last month. Her stool has been very dark and sometimes dark red. The last episode of bloody stool was a few days ago. She denies abdominal pain but did have some nausea. There is no vomiting. She has been feeling more tired in the last few weeks. On admission, her hemoglobin was 7. She has received 2 units of blood. PAST MEDICAL HISTORY: 1. Sigmoid diverticulosis in 2008. 2. Coronary artery disease. 3. Hyperlipidemia. 4. Hypertension. 5. Peripheral vascular disease. 6. COPD. 7. Sleep apnea. PAST SURGICAL HISTORY: 1. Colonoscopy in 2008. 2. Carotid endarterectomy. 3. Coronary artery bypass. 4. Coronary artery stent placement. The last one was in May 2016. SOCIAL HISTORY: Noncontributory. REVIEW OF SYSTEMS: Other than the above, this is noncontributory. PHYSICAL EXAMINATION: GENERAL: Shows a lady in no distress. HEENT: Some pallor but no jaundice. Oropharynx normal. NECK: No bruit. No JVD. CHEST: No deformity. Lungs with reduced breath sounds bilaterally. ABDOMEN: Soft and nontender. There is a midline scar. NEUROLOGIC: Grossly nonfocal. ASSESSMENT/PLAN: 1. RECTAL BLEEDING. She has seen blood off and on for the last month and sometimes her stool has been to blood. This may be a lower GI or upper GI bleed. She does have sigmoid diverticulosis. She will undergo an EGD and colonoscopy. If this is , capsule endoscopy of the small bowel will be performed as outpatient. DICTATING PHYSICIAN: DIEGO ALMONTE M.D. [id number] PHY#: [id number] 2004 ID: [id number] JOB#: [id number] ACCT: [id number] cc:DIEGO ALMONTE M.D. >
--- NOTE | 2017-04-17 13:54 | Physician Advisory Note ---
Physician Advisor ProgressNote .: Pursuant to the plan for [facility], I have reviewed the medical record for this patient. Physician Advisor Statement: Nice documentation of ABLAnemia - just need causality spelled out too. Possible documentation opportunities if attending agrees: 1. "ABLAnemia due to [acute on chronic?] GIBleeding, which is likely due to ___ ___" As always, if concerned about any unstable VS or abnormal labs, please comment on them & note what doing about them, & please document each day the potential clinical problems you are concerned could occur if pt not kept in hospital for tx at this time. Thanks for your help with documentation accuracy/specificity improvement! CK
--- NOTE | 2017-04-17 16:48 | XCELERA REPORT ---
[address] [address] Transthoracic Echocardiogram Report Name: MICHELLE VELASQUEZ Age: 76 yrs Gender: Female : 1940 Patient Status: Inpatient Patient Location: 3S\S\330\S\A Study Date: 04/17/2017 02:10 PM Height: 67 in Weight: 145 lb BSA: 1.8 m2 Procedure: A complete two-dimensional transthoracic echocardiogram was performed (2D, M-mode, spectral and color flow Doppler). The study was technically adequate with some images being suboptimal in quality. Reason For Study: CAD, dyspnea Ordering Physician: CINDA DUBON Performed By: Ernestina Parham Interpretation Summary The left ventricular ejection fraction is normal. There is mild concentric left ventricular hypertrophy. Doppler measurements suggest pseudonormalized left ventricular relaxation, which is associated with grade II/IV or mild to moderate diastolic dysfunction The left ventricle is grossly normal size. Wall motion cannot be accurately commented on, but no definite regional wall motion abnormalities noted. The right ventricle is normal in size, thickness and function The right ventricular systolic function is normal. The right atrium is normal in size The left atrium is mildly dilated. There is a trace amount of mitral regurgitation There is no mitral valve stenosis. There is moderate aortic stenosis There is a peak gradient of 40, mean gradient 20 mm of Hg. There is a trace or physiologic amount of tricuspid regurgitation Tricuspid regurgitation jet envelope not well defined to measure RV systolic pressure accurately. The aortic root is not well visualized but is probably normal size. The inferior vena cava appeared normal and decreased > 50% with respiration (RAP 5-10 mmHg) There is no pericardial effusion. MMode/2D Measurements \T\ Calculations RVDd: 2.3 cm LVIDd: 4.8 cmFS: 42.2 % Ao root diam: 2.4 cm IVSd: 0.98 cm LVIDs: 2.8 cmEDV(Teich): 106.3 ml LVPWd: 1.0 cmESV(Teich): 28.5 ml Ao root area: 4.6 cm2 EF(Teich): 73.2 % LA dimension: 4.1 cm LVOT diam: 2.0 cm LVOT area: 3.0 cm2 Doppler Measurements \T\ Calculations MV E max bri: MV P1/2t max bri: Ao V2 max: AI max bri: 108.6 cm/sec 107.1 cm/sec 318.1 cm/sec 349.1 cm/sec MV A max bri: MV P1/2t: 64.4 msec Ao max PG: AI max P.3 cm/sec MVA(P1/2t): 3.4 cm2 40.6 mmHg 48.7 mmHg MV E/A: 1.1 MV dec slope: Ao V2 mean: AI dec slope: 487.3 cm/sec2 213.7 cm/sec 146.0 cm/sec2 MV dec time: Ao mean PG: AI P1/2t: 0.23 sec 21.2 mmHg 700.2 msec Ao V2 VTI: 77.3 cm OKSANA(I,D): 0.61 cm2 OKSANA(V,D): 1.0 cm2 LV V1 max PG: SV(LVOT): 47.2 ml PA V2 max: PI end-d bri: 4.8 mmHg 89.8 cm/sec 138.5 cm/sec LV V1 mean PG: PA max P.1 mmHg 3.2 mmHg LV V1 max: 109.0 cm/sec LV V1 mean: 63.0 cm/sec LV V1 VTI: 15.8 cm Left Ventricle The left ventricle is grossly normal size. There is mild concentric left ventricular hypertrophy. The left ventricular ejection fraction is normal. Doppler measurements suggest pseudonormalized left ventricular relaxation, which is associated with grade II/IV or mild to moderate diastolic dysfunction. Wall motion cannot be accurately commented on, but no definite regional wall motion abnormalities noted. Right Ventricle The right ventricle is normal in size, thickness and function. There is normal right ventricular wall thickness. The right ventricular systolic function is normal. Atria The right atrium is normal in size. The left atrium is mildly dilated. Interarterial septum not well visualized and not well dopplered. Cannot comment on ASD/PFO presence. Mitral Valve There is mild mitral leaflet calcification. There is mild mitral annular calcification. There is no mitral valve stenosis. There is a trace amount of mitral regurgitation. Aortic Valve The aortic valve is calcified. There is moderate aortic stenosis. There is a peak gradient of 40, mean gradient 20 mm of Hg. Tricuspid Valve The tricuspid valve is not well visualized, but is grossly normal. There is no tricuspid stenosis. There is a trace or physiologic amount of tricuspid regurgitation. Tricuspid regurgitation jet envelope not well defined to measure RV systolic pressure accurately. Pulmonic Valve The pulmonic valve is not well visualized. Great Vessels The aortic root is not well visualized but is probably normal size. The inferior vena cava appeared normal and decreased > 50% with respiration (RAP 5-10 mmHg). Effusions There is no pericardial effusion. : CINDA DUBON > Cinda Dubon
[2017-04-17 18:25] VITALS: BP 166/81
--- NOTE | 2017-04-17 20:59 | PDOC PROGRESS REPORT ---
Subjective Progress Note for:: 04/17/17 Subjective:: Patient seems to be doing well. She underwent endoscopy without any complications. She was noted to have gastritis without any active bleed. Cardiac yuan she has remained stable without any recurrence of chest pain, palpitations, syncope, near syncope. She denied any others significant complaints. We discussed sleep apnea related symptoms. Patient does have loud habitual snoring and also daytime fatigue and sleepiness. Telemetry steps were reviewed. Patient maintaining sinus rhythm. No significant cardiac dysrhythmias were noted. Physical Exam Vital Signs: Temp Pulse Resp BP Pulse Ox 97.9 F 64 17 166/81 H 94 04/17/17 18:24 04/17/17 18:24 04/17/17 18:24 04/17/17 18:24 04/17/17 18:24 Intake & Output 04/16/17 04/17/17 04/18/17 06:59 06:59 06:59 Intake Total 300 1490 1270 Balance 300 1490 1270 Weight 63.7 kg Exam: GEN: NAD, patient alert oriented x3. Appearance and grooming WNL HEENT : Eyes: TONNY, Ears: No significant abnormalities, Nose: No significant abnormalities. normocephalic atraumatic. Flat midface (-), Receding chin (-) ORAL : Mallampati class III, highly arched palate (-) Tonsils: Not enlarged. NECK: no thyromegaly, no masses, trachea is central, JVD is not elevated, carotids are 2+ with bruit (-) RESP: lungs clear to auscultation bilaterally, no rales, wheezes or rhonchi., nonlabored, no use of accessory muscles of respiration CV: NL S1 and S2. 2/6 ejection systolic murmur noted in the aortic area and left sternal border. 1/6 pansystolic murmur noted at the apex. no S3, no S4 noted. No rub noted., gallops, rubs, clicks GI: abd NT to palpation, no masses, bowel sounds present, no guarding or rigidity noted. EXT: no clubbing, (-) cyanosis, edema (-), perpheral pulses diminished (+) MUSC/SKEL: no acute joint swelling noted. Muscle strength is generally intact. NEURO: no tremors. no significant focal neurological deficits are noted., sensation grossly intact, AO x 3 PSYCH: NL mood and affect. judgment and insight noted to be intact.. SKIN: (-) rash, (-)Signs of pruritus, (-) other significant abnormality Results Laboratory Results: 04/17/17 09:58 04/16/17 02:31 04/16/17 04/17/17 15:25 09:58 WBC 5.2 5.7 RBC 4.49 4.10 Hgb 10.3 L 9.3 L Hct 33.1 L 30.6 L MCV 74 L 75 L MCH 23.0 L 22.8 L MCHC 31.3 L 30.6 L RDW 21.6 H 22.0 H Plt Count 191 172 Assessment & Plan - Diagnosis (1) CAD (coronary artery disease) Qualifiers: Coronary Disease-Associated Artery/Lesion type: unspecified vessel or lesion type [place] vs. transplanted heart: [place] heart Associated angina: angina presence unspecified Qualified Code(s): I25.10 - Atherosclerotic heart disease of [place] coronary artery without angina pectoris Is this a current diagnosis for this admission?: Yes (2) GI bleed Qualifiers: GI bleed type/associated pathology: unspecified gastrointestinal hemorrhage type Qualified Code(s): K92.2 - Gastrointestinal hemorrhage, unspecified Is this a current diagnosis for this admission?: Yes (3) HLD (hyperlipidemia) Qualifiers: Hyperlipidemia type: unspecified Qualified Code(s): E78.5 - Hyperlipidemia, unspecified Is this a current diagnosis for this admission?: Yes (4) HTN (hypertension) Qualifiers: Hypertension type: essential hypertension Qualified Code(s): I10 - Essential (primary) hypertension Is this a current diagnosis for this admission?: Yes (5) Symptomatic anemia Is this a current diagnosis for this admission?: Yes (6) Stented coronary artery Is this a current diagnosis for this admission?: Yes (7) Sleep disorder breathing Is this a current diagnosis for this admission?: Yes - Notes Notes: CAD: Patient is symptomatically stable. There is no evidence of angina or no significant angina and angina equivalent symptoms. Patient advised aggressive risk factor modification and medical therapy. Medical regimen reviewed and is noted to be satisfactory. Hypertension: Blood-pressure is well controlled. Continue current medications. We discussed importance of weight loss, salt restriction, regular walking program and compliance with medication. BP goal is 135/95 or less. Dyslipidemia: Patient encouraged to continue with current anti-lipid therapy, low-cholesterol, low-fat, heart healthy diet, regular exercise program, weight loss etc. Informed that periodic lipid panel and liver panels may be needed. PVD:This is stable. Patient denied any ongoing rest or worsening claudications. Patient has no evidence of tissue loss or any decreased perfusion signs. Patient advised on regular walking program. proper footcare discussed. Patient advised to avoid any firsthand or secondhand smoking. Antiplatelet therapy discussed. Patient last stent was in May 2016. I have advised them to come off aspirin but continue Plavix. They do have an appointment to see primary care copy center associate. Whether to continue Plavix for longer period than a year would depend on his assessment. This was explained to the patient. Sleep disorder: Based on patient interview and physical exam, there is high probability of underlying sleep apnea syndrome. Discussed sleep hygiene. Reinforced adverse effect of untreated sleep apnea as regards increased risk of cardiovascular, cerebrovascular events, cardiac arrhythmias, accidents, difficult to control hypertension and diabetes etc. patient encouraged to schedule a sleep study. - Time Time with patient: Greater than 35 minutes - We had a long discussion with patient and her daughter about management of coronary artery disease and multiple peripheral vascular disease patient has. Discussed that treatment of sleep apnea if present will be an important aspect of management. In this regard patient was advised sleep hygiene. Patient also encouraged to follow-up and scheduled a sleep study. Patient can follow-up with her primary care copy center associate for management of cardiovascular and peripheral vascular disease. CODE STATUS was discussed, patient remains full code. Surrogate decision-maker unchanged. Multiple medical problems were addressed. More than 50% of the time spent coordinating care, discussing management plans with involved caregivers. Management plans discussed with involved personnels. Medical decision making was of moderate to high complexity, patient's has multiple severe comorbidities. Medications reviewed and adjusted accordingly: Yes
--- NOTE | 2017-04-17 21:33 | DISCHARGE SUMMARY E ---
Discharge Summary NAME: MICHELLE VELASQUEZ : 1940 AGE: 76Y ADMITTED: 04/15/2017 DISCHARGED: 04/17/2017 CONSULTANTS: Lamberto Cornell M.D., Gastroenterology. DISCHARGE DIAGNOSES: 1. Acute gastritis. 2. Diverticular disease. 3. Lower gastrointestinal bleed. 4. Acute blood loss anemia secondary to the above requiring transfusion of 2 units of packed red blood cells. 5. Coronary artery disease with atherosclerotic coronary vascular disease requiring antiplatelet therapy. DISCHARGE MEDICATIONS: 1. Ventolin HFA 2 puffs q.4 hours as needed. 2. Vitamin C 500 mg daily. 3. Lipitor 80 mg at bedtime. 4. Vitamin D 1000 units daily. 5. Plavix 75 mg daily. 6. B12 1500 mg daily. 7. Iron sulfate 325 mg daily. 8. Lisinopril 10 mg b.i.d. 9. Claritin 10 mg daily. 10. Heppner-3 fatty acids 1 capsule b.i.d. 11. Protonix 40 mg b.i.d. for 1 month then off. PROCEDURES: Upper and lower endoscopy by Dr. Cornell with findings noted above, please see his dictation for full details. CHIEF COMPLAINT: Bright red blood per rectum. HOSPITAL COURSE: The patient is a very pleasant 76-year-old female patient who presented to the Emergency Department with sudden onset of bright red blood including clots out her rectum and was found to have a hemoglobin of only 6 at that time. She was hemodynamically stable. She received 2 units of packed red blood cells without any difficulty with good improvement in her hemoglobin; at discharge, it was 9.3 and holding. Gastroenterology was consulted and elected to perform upper and lower endoscopy with findings of gastritis and diverticulosis, but no active bleeding was discovered. Dr. Aguilar from Cardiology was consulted and recommended holding aspirin indefinitely but at least for the next 30 days; however, since her cardiac stent is still less than 1 year old recommended continuing the Plavix therapy if no active bleeding was found and she remained stable. She has had no further blood loss in the last 12 hours since the procedure and did not have any active blood loss during the bowel prep prior to the procedure and at this point is hemodynamically stable and can be safely discharged home. She is to follow up with Dr. Cornell per his instructions. She should follow up with her primary care provider in 1 week for repeat labs including an H and H to make sure she is remaining stable. Signs and symptoms of active bleeding were discussed with the patient in great detail with her daughter at the bedside. All parties expressed understanding and a willingness to return to the Emergency Department for immediate evaluation if there is any recurrence of her symptoms. All questions were asked and answered to their satisfaction. DICTATING PHYSICIAN: STU RAMOS M.D. [id number] PHY#: [id number] ID: [id number] JOB#: [id number] ACCT: [id number] cc:EVARISTO VILLAR M.D. STU RAMOS M.D. >
[2017-04-17] MEDS ORDERED: ATORVASTATIN CALCIUM 40 MG TABLET PO SCH (22:00)
== END 2017-04-17 20:31 | disposition home or self-care (01) | DRG 378 ==
LOC: ER 16:12 → EH 22:29 → UNDOADMIN 22:29 → EH 22:36 → 3S 04-16 17:15
PROVIDERS: ADMIT Family Medicine; ATTEND Family Medicine
PROC: 30233N1 Transfusion of Nonautologous Red Blood Cells into Peripheral Vein, Percutaneous Approach (ICD-10-PCS; 2017-04-15)
PROC: 0DBK8ZX Excision of Ascending Colon, Via Natural or Artificial Opening Endoscopic, Diagnostic (ICD-10-PCS; principal; 2017-04-16 19:00)
PROC: 0DB78ZX Excision of Stomach, Pylorus, Via Natural or Artificial Opening Endoscopic, Diagnostic (ICD-10-PCS; 2017-04-16 19:00)
DX: K29.01 Acute gastritis with bleeding (principal); D62 Acute posthemorrhagic anemia; K57.31 Diverticulosis of large intestine without perforation or abscess with bleeding; I25.10 Atherosclerotic heart disease of native coronary artery without angina pectoris; E78.5 Hyperlipidemia, unspecified; I10 Essential (primary) hypertension; I73.9 Peripheral vascular disease, unspecified; J44.9 Chronic obstructive pulmonary disease, unspecified; G47.30 Sleep apnea, unspecified; K64.9 Unspecified hemorrhoids; M19.90 Unspecified osteoarthritis, unspecified site; K58.9 Irritable bowel syndrome, unspecified; Z87.891 Personal history of nicotine dependence; Z79.82 Long term (current) use of aspirin; Z79.02 Long term (current) use of antithrombotics/antiplatelets; Z79.899 Other long term (current) drug therapy; Z95.1 Presence of aortocoronary bypass graft; Z95.5 Presence of coronary angioplasty implant and graft; Z90.710 Acquired absence of both cervix and uterus; Z60.2 Problems related to living alone; Z88.8 Allergy status to other drugs, medicaments and biological substances; Z82.49 Family history of ischemic heart disease and other diseases of the circulatory system
CPT/HCPCS: 36415; 36430; 43239; 45378; 80048; 80076; 82272; 82728; 83540; 83550; 83735; 84484; 85025; 85027; 85610; 85730; 86850; 86900; 86901; 86920; 88305; 88342; 93005; 93010; 93306; 99291; J0171; J1610; J2250; J2310; J3010; J3490; J7050; P9016; S0164

== ENCOUNTER → 2017-04-30 | Outpatient (CLI) | payer MEDICARE, OTHER ==
[2017-04-30 10:19] LABS: HEMATOCRIT 35.8 % (36.0-47.0); HEMOGLOBIN 11.8 g/dL (12.0-15.5); HGB HCT DIFFERENCE -0.4; MEAN CORPUSCULAR HEMOGLOBIN 25.7 pg (27.0-33.4); MEAN CORPUSCULAR HGB CONC 32.8 g/dL (32.0-36.0); MEAN CORPUSCULAR VOLUME 78 fl (80-97); RED BLOOD COUNT 4.59 10^6/uL (3.72-5.28); WHITE BLOOD COUNT 4.1 10^3/uL (4.0-10.5)
== END ==
LOC: OD 09:11
PROVIDERS: ATTEND Physician Assistant Surgical
DX: K92.2 Gastrointestinal hemorrhage, unspecified (principal); D50.0 Iron deficiency anemia secondary to blood loss (chronic)
CPT/HCPCS: 36415; 85027

== ENCOUNTER → 2017-06-06 | Outpatient (CLI) | payer MEDICARE, OTHER ==
[2017-06-06 09:55] LABS: HEMATOCRIT 39.9 % (36.0-47.0); HEMOGLOBIN 12.8 g/dL (12.0-15.5); HGB HCT DIFFERENCE -1.5; MEAN CORPUSCULAR HEMOGLOBIN 27.4 pg (27.0-33.4); MEAN CORPUSCULAR HGB CONC 32.1 g/dL (32.0-36.0); MEAN CORPUSCULAR VOLUME 85 fl (80-97); RED BLOOD COUNT 4.68 10^6/uL (3.72-5.28); RED CELL DISTRIBUTION WIDTH 26.8 % (11.5-14.0); WHITE BLOOD COUNT 3.7 10^3/uL (4.0-10.5)
== END ==
LOC: OD 09:09
PROVIDERS: ATTEND Physician Assistant Surgical
DX: D50.0 Iron deficiency anemia secondary to blood loss (chronic) (principal)
CPT/HCPCS: 36415; 83540; 83550; 85027

== ENCOUNTER 2017-11-08 19:08 | Emergency (ER) | payer MEDICARE, OTHER ==
[2017-11-08] MEDS ORDERED: OXYCODONE-ACETAMINOPHEN 5-325 MG TABLET PO ONE (19:44)
--- NOTE | 2017-11-08 20:13 | RADIOLOGY REPORT (SQ) ---
EXAM DESCRIPTION: WRIST LEFT 3 VIEWS COMPLETED DATE/TIME: 11/08/2017 8:02 pm REASON FOR STUDY: pain COMPARISON: None. NUMBER OF VIEWS: Three views. TECHNIQUE: AP, lateral, and oblique radiographic images acquired of the left wrist. LIMITATIONS: None. FINDINGS: MINERALIZATION: Osteopenia. BONES: Impacted intra-articular distal radial fracture with slight dorsal displacement and minimal an gulation. Old ununited ulnar styloid fracture. Bones otherwise appear to be intact. SOFT TISSUES: Diffuse soft tissue swelling. OTHER: No other significant finding. IMPRESSION: IMPACTED INTRA-ARTICULAR DISTAL RADIAL FRACTURE ABOVE. TECHNICAL DOCUMENTATION: JOB ID: [id number] [employer]- All Rights Reserved
--- NOTE | 2017-11-08 20:25 | ER Document Report ---
ED Hand/Wrist Injury - General Mode of Arrival: Ambulatory Information source: Patient TRAVEL OUTSIDE OF THE [place] IN LAST 30 DAYS: No <MARLO KOEHLER - Last Filed: 11/08/17 21:06> <CAREY FLORES - Last Filed: 11/08/17 22:31> - General Chief Complaint: Wrist Injury Stated Complaint: LEFT WRIST INJURY Time Seen by Provider: 11/08/17 19:44 Notes: Patient is a 77-year-old female who presents to the emergency department today with complaints of left wrist pain. Patient states she fell and went to [facility] and they were concerned for a weakened radial pulse. On arrival here, patient has a splint that was placed by [facility] which is quite tight around the wrist. Patient denies any other injuries (MARLO KOEHLER) - Related Data Allergies/Adverse Reactions: pseudoephedrine HCl [From Sudafed] Allergy (Mild, Verified 04/15/17 22:52) nausea and vomiting Past Medical History - General Information source: Patient - Social History Smoking Status: Unknown if Ever Smoked Cigarette use (# per day): No Frequency of alcohol use: None Drug Abuse: None Lives with: Family Family History: Reviewed & Not Pertinent, CAD Patient has suicidal ideation: No Patient has homicidal ideation: No - Past Medical History Cardiac Medical History: Reports: Hx Coronary Artery Disease, Hx Hypercholesterolemia, Hx Hypertension, Hx Peripheral Vascular Disease Pulmonary Medical History: Reports: Hx COPD Musculoskeltal Medical History: Reports Hx Arthritis Past Surgical History: Reports: Hx Cardiac Catheterization, Hx Carotid Endarterectomy - Right carotid endarterectomy 2006, Hx Coronary Artery Bypass Graft - Four-vessel bypass 2005, Hx Coronary Stent - Multiple; last implant May 01, 2016, Hx Hysterectomy, Hx Open Heart Surgery - quad bypass 10/2006, Hx Orthopedic Surgery - Immunizations Hx Diphtheria, Pertussis, Tetanus Vaccination: Yes Hx Pneumococcal Vaccination: 08/31/12 <MARLO KOEHLER - Last Filed: 11/08/17 21:06> Review of Systems - Review of Systems Constitutional: No symptoms reported EENT: No symptoms reported Cardiovascular: No symptoms reported Respiratory: No symptoms reported Gastrointestinal: No symptoms reported Genitourinary: No symptoms reported Female Genitourinary: No symptoms reported Musculoskeletal: See HPI, Joint pain - LEFT WRIST Skin: No symptoms reported Hematologic/Lymphatic: No symptoms reported Neurological/Psychological: No symptoms reported -: Yes All other systems reviewed and negative <MARLO KOEHLER - Last Filed: 11/08/17 21:06> Physical Exam - General General appearance: Appears well, Alert In distress: None - HEENT Head: Normocephalic, Atraumatic Eyes: Normal Conjunctiva: Normal - Respiratory Respiratory status: No respiratory distress - Cardiovascular Rhythm: Regular Heart sounds: Normal auscultation Murmur: No - Abdominal Inspection: Normal Distension: No distension - Back Back: Normal, Nontender - Neurological Neuro grossly intact: Yes Cognition: Normal Orientation: AAOx4 Speech: Normal - Psychological Associated symptoms: Normal affect, Normal mood - Skin Skin Temperature: Warm Skin Moisture: Dry Skin Color: Normal <MARLO KOEHLER - Last Filed: 11/08/17 21:06> - Extremities General upper extremity: Other - Left wrist shows diffuse swelling is quite tender. There is good capillary refill to the fingertips and good sensation and motor function. <CAREY FLORES - Last Filed: 11/08/17 22:31> - Vital signs Vitals: Temp Pulse Resp BP Pulse Ox 98.3 F 73 20 196/72 H 96 11/08/17 19:26 11/08/17 19:26 11/08/17 19:26 11/08/17 19:26 11/08/17 19:26 Course <MARLO KOEHLER - Last Filed: 11/08/17 21:06> - Diagnostic Test Radiology reviewed: Image reviewed, Reports reviewed - Left wrist x-ray shows an impacted intra-articular fracture of the distal radius with minimal dorsal angulation and slight dorsal displacement and diffuse swelling. - Consults Dr. Acosta Time consulted: 20:20 Consulted provider: follow-up in office - We will see Friday in the office at 8 AM. <CAREY FLORES - Last Filed: 11/08/17 22:31> - Re-evaluation Re-evalutation: 11/08/17 21:27 The daughter reports the patient has had Percocet once in the past and it caused her to be unable to sleep and other problems. She does not know what she can take because she does not normally take pain medications. We will try hydrocodone. 11/08/17 22:29 The sugar tong splint was placed on the left wrist and forearm by the PCT. A sling was then provided. This was evaluated by me and patient found to have good capillary refill in fingertips and normal sensation. The splint did provide good support and comfort for the fracture. The sling does support the weight of the splint and forearm. (CAREY FLORES) - Vital Signs Vital signs: Temp Pulse Resp BP Pulse Ox 99.2 F 64 14 160/62 H 95 11/08/17 21:43 11/08/17 21:43 11/08/17 21:43 11/08/17 21:43 11/08/17 21:43 Discharge <MARLO KOEHLER - Last Filed: 11/08/17 21:06> <CAREY FLORES - Last Filed: 11/08/17 22:31> - Discharge Clinical Impression: Wrist fracture, closed Qualifiers: Encounter type: initial encounter Laterality: left Qualified Code(s): S62.102A - Fracture of unspecified carpal bone, left wrist, initial encounter for closed fracture Condition: Stable Disposition: HOME, SELF-CARE Additional Instructions: Fractured Radius: The bone called the radius is fractured. This type of fracture is typically caused by falling onto the outstretched hand. The fracture is not serious, however, and should heal well with adequate protection. Your physician 's evaluation shows the bone is in good position to heal. A cast or splint is used to protect the fracture. For the first few days after the injury, the arm should be elevated and ice packed. Healing takes from three to eight weeks, depending on the age of the patient and the seriousness of the fracture. Your doctor has explained the treatment plan. It's important that you follow up as instructed to prevent complications. Call the doctor or return at once if severe pain or swelling occur, or if the hand becomes numb, swollen, or discolored. //////////////////////////////////////////////////////////////////////////////// //////////////////////////////////////////////////////////////////////////////// ////////////////// Keep the splint clean and dry. Keep your hand elevated above the heart as much as possible. Use ice packs for the first 12-24 hours to help reduce swelling. Take the pain medication if needed. Follow-up with Dr. Acosta at [facility] for surgery on Friday morning at 8 AM. RETURN TO THE EMERGENCY ROOM IF ANY NEW OR WORSENING SYMPTOMS. Prescriptions: Hydrocodone/Acetaminophen [Hydrocodon-Acetaminophen 5-325] 1 each PO Q4 PRN #15 tablet PRN Reason: For Pain Referrals: JOSE ANTONIO ACOSTA MD [ACTIVE STAFF] - 11/11/17 8:00 am Scribe Attestation: 11/08/17 21:28 I personally performed the services described in the documentation, reviewed and edited the documentation which was dictated to the scribe in my presence, and it accurately records my words and actions. (CAREY FLORES) Scribe Documentation - Scribe Written by Sergio:: Sergio Garcia, 11/08/2017 2125 acting as scribe for :: Jeri <MARLO KOEHLER - Last Filed: 11/08/17 21:06>
[2017-11-08] MEDS ORDERED: HYDROCODONE/ACETAMINOPHEN 5-325 MG 6 TAB/DSPK PO PRN (21:27)
[2017-11-08 22:23] VITALS: BP 160/62
== END 2017-11-08 22:23 | disposition home or self-care (01) ==
LOC: ER 19:08
PROC: 2W3DX1Z Immobilization of Left Lower Arm using Splint (ICD-10-PCS; principal; 2017-11-08)
DX: S62.102A Fracture of unspecified carpal bone, left wrist, initial encounter for closed fracture (principal); M25.532 Pain in left wrist; W19.XXXA Unspecified fall, initial encounter
CPT/HCPCS: 99283; 73110; 29125; A9270 ×2

== ENCOUNTER 2018-10-31 18:29 | Emergency (ER) | payer MEDICARE ==
[2018-10-31] MEDS ORDERED: PANTOPRAZOLE SODIUM 40 MG VIAL IV ONE (19:18)
--- NOTE | 2018-10-31 19:19 | ER Document Report ---
ED Medical Screen (RME) - General Chief Complaint: Rectal Bleeding Stated Complaint: RECTAL BLEEDING Time Seen by Provider: 10/31/18 19:10 Notes: Patient is a 78-year-old female that presents to the emergency department for chief complaint of bright red blood per rectum with clots. Patient has a history of GI bleeding in the past, when she was on aspirin and Plavix about a year and a half ago, she states she has had darker stools as well, and now passing bright red blood per rectum, she was not given a diagnosis of how she was bleeding last time, other than gastritis. Denies any abdominal pain associated with this. ROS: Other than noted above, the 12 point review of systems was reviewed with the patient and were negative, all pertinent findings are included in the HPI. PHYSICAL EXAMINATION: Vital signs reviewed. GENERAL: Well-appearing, well-nourished and in no acute distress. Appears pale. HEAD: Atraumatic, normocephalic. EYES: Pupils equal round extraocular movements intact, conjunctiva are normal. ENT: Nares patent NECK: Normal range of motion CV: Heart regular rate and rhythm LUNGS: No respiratory distress Musculoskeletal: Normal range of motion NEUROLOGICAL: Normal speech PSYCH: Normal mood, normal affect. MDM: Patient seen and examined for rapid initial assessment. Vital signs reviewed. A comprehensive ED assessment and evaluation of the patient, analysis of test results and completion of the medical decision making process will be conducted by additional ED providers. *Note is created using voice recognition software and may contain spelling, syntax or grammatical errors. TRAVEL OUTSIDE OF THE [place] IN LAST 30 DAYS: No - Related Data Allergies/Adverse Reactions: pseudoephedrine HCl [From Sudafed] Allergy (Mild, Verified 10/31/18 19:12) nausea and vomiting amoxicillin Allergy (Verified 10/31/18 19:12) Past Medical History - Social History Chew tobacco use (# tins/day): No Frequency of alcohol use: None Drug Abuse: None - Past Medical History Cardiac Medical History: Reports: Hx Coronary Artery Disease, Hx Hypercholesterolemia, Hx Hypertension, Hx Peripheral Vascular Disease Denies: Hx Congestive Heart Failure, Hx DVT, Hx Heart Attack, Hx Pulmonary Embolism Pulmonary Medical History: Reports: Hx COPD Denies: Hx Asthma, Hx Sleep Apnea Neurological Medical History: Denies: Hx Cerebrovascular Accident, Hx Seizures Endocrine Medical History: Denies: Hx Diabetes Mellitus Type 1, Hx Diabetes Mellitus Type 2, Hx Hyperthyroidism, Hx Hypothyroidism Renal/ Medical History: Denies: Hx Peritoneal Dialysis GI Medical History: Denies: Hx Cirrhosis, Hx Gastroesophageal Reflux Disease, Hx Hepatitis, Hx Hiatal Hernia, Hx Ulcer Musculoskeltal Medical History: Reports Hx Arthritis Psychiatric Medical History: Denies: Hx Depression Infectious Medical History: Denies: Hx C-Diff, Hx Hepatitis, Hx MRSA Past Surgical History: Reports: Hx Cardiac Catheterization, Hx Carotid Endarterectomy - Right carotid endarterectomy 2006, Hx Coronary Artery Bypass Graft - Four-vessel bypass 2005, Hx Coronary Stent - Multiple; last implant May 01, 2016, Hx Hysterectomy, Hx Open Heart Surgery - quad bypass 10/2006, Hx Orthopedic Surgery. Denies: Hx Mastectomy, Hx Pacemaker - Immunizations Hx Diphtheria, Pertussis, Tetanus Vaccination: Yes Physical Exam - Vital signs Vitals: Temp Pulse Resp BP Pulse Ox 98.6 F 72 16 150/63 H 96 10/31/18 18:50 10/31/18 18:50 10/31/18 18:50 10/31/18 18:50 10/31/18 18:50 Course - Vital Signs Vital signs: Temp Pulse Resp BP Pulse Ox 98.6 F 72 16 136/57 H 96 10/31/18 18:50 10/31/18 18:50 10/31/18 18:50 10/31/18 18:51 10/31/18 18:50 Doctor's Discharge - Discharge Referrals: ANA LOZANO MD [Primary Care Provider] - Follow up as needed
[2018-10-31 20:12] LABS: ABSOLUTE EOSINOPHILS # (AUTO) 0.1 10^3/uL (0.0-0.6); ABSOLUTE LYMPHOCYTES (AUTO) 1.7 10^3/uL (0.5-4.7); ABSOLUTE MONOCYTES (AUTO) 0.4 10^3/uL (0.1-1.4); ABSOLUTE NEUT (AUTO) 1.2 10^3/uL (1.7-8.2); BASOPHILS % (AUTO) 0.2 % (0-2); HEMATOCRIT 36.5 % (36.0-47.0); HEMOGLOBIN 12.5 g/dL (12.0-15.5); LYMPHOCYTES % (AUTO) 48.9 % (13-45); MEAN CORPUSCULAR HEMOGLOBIN 32.1 pg (27.0-33.4); MEAN CORPUSCULAR HGB CONC 34.4 g/dL (32.0-36.0); MEAN CORPUSCULAR VOLUME 93 fl (80-97); MONOCYTES % (AUTO) 12.5 % (3-13); PLATELET COUNT 154 10^3/uL (150-450); RED CELL DISTRIBUTION WIDTH 13.5 % (11.5-14.0); SEGMENTED NEUTROPHILS % (AUTO) 34.4 % (42-78); TOTAL CELLS COUNTED % (AUTO) 100 %; WHITE BLOOD COUNT 3.5 10^3/uL (4.0-10.5)
[2018-10-31 20:18] LABS: INTERNATIONAL RATION (INR) 1.03; PROTHROMBIN TIME 14.1 SEC (11.4-15.4)
[2018-10-31 20:19] LABS: PARTIAL THROMBOPLASTIN TIME 32.6 SEC (23.5-35.8)
[2018-10-31 20:24] LABS: ALANINE AMINOTRANSFERASE 24 U/L (9-52); ALBUMIN 3.9 g/dL (3.5-5.0); ALKALINE PHOSPHATASE 51 U/L (38-126); ANION GAP 8 (5-19); ASPARTATE AMINO TRANSFERASE 30 U/L (14-36); BILIRUBIN,DIRECT 0.1 mg/dL (0.0-0.4); BLOOD UREA NITROGEN 20 mg/dL (7-20); CALCIUM 9.5 mg/dL (8.4-10.2); CARBON DIOXIDE 26 mmol/L (22-30); CHLORIDE 105 mmol/L (98-107); GLUCOSE 82 mg/dL (75-110); POTASSIUM 4.3 mmol/L (3.6-5.0); SODIUM 139.2 mmol/L (137-145); TOTAL PROTEIN 6.2 g/dL (6.3-8.2)
--- NOTE | 2018-10-31 21:24 | ER Document Report ---
ED General - General Chief Complaint: Rectal Bleeding Stated Complaint: RECTAL BLEEDING Time Seen by Provider: 10/31/18 19:10 Notes: Patient is a 78-year-old female with a past medical history of coronary artery disease currently on clopidogrel, hypertension, who presents with 2 days of intermittent rectal bleeding. She states that this occurs with bowel movements only. It is bright red blood with some clotting associated. She denies any associated abdominal pain. She states that she is generally constipated and strains to have bowel movements although she has had loose bowels in the past 24 hours. She has a history of a lower GI bleed in the past that was unable to be identified in terms of its source despite multiple colonoscopies. The patient has not seen her general doctor or GI physician regarding today's concerns. Nothing seems to improve or worsen her symptoms. She denies any associated headedness, syncope, chest pain, shortness of breath, fever or constitutional symptoms. No rectal trauma. TRAVEL OUTSIDE OF THE [place] IN LAST 30 DAYS: No - Related Data Allergies/Adverse Reactions: pseudoephedrine HCl [From Sudafed] Allergy (Mild, Verified 10/31/18 19:12) nausea and vomiting amoxicillin Allergy (Verified 10/31/18 19:12) Past Medical History - General Information source: Patient - Social History Smoking Status: Former Smoker Chew tobacco use (# tins/day): No Frequency of alcohol use: None Drug Abuse: None Lives with: Family Family History: Reviewed & Not Pertinent, CAD Patient has suicidal ideation: No Patient has homicidal ideation: No - Past Medical History Cardiac Medical History: Reports: Hx Coronary Artery Disease, Hx Hypercholesterolemia, Hx Hypertension, Hx Peripheral Vascular Disease Denies: Hx Congestive Heart Failure, Hx DVT, Hx Heart Attack, Hx Pulmonary Embolism Pulmonary Medical History: Reports: Hx COPD Denies: Hx Asthma, Hx Sleep Apnea Neurological Medical History: Denies: Hx Cerebrovascular Accident, Hx Seizures Endocrine Medical History: Denies: Hx Diabetes Mellitus Type 1, Hx Diabetes Mellitus Type 2, Hx Hyperthyroidism, Hx Hypothyroidism Renal/ Medical History: Denies: Hx Peritoneal Dialysis GI Medical History: Denies: Hx Cirrhosis, Hx Gastroesophageal Reflux Disease, Hx Hepatitis, Hx Hiatal Hernia, Hx Ulcer Musculoskeletal Medical History: Reports Hx Arthritis Psychiatric Medical History: Denies: Hx Depression Infectious Medical History: Denies: Hx C-Diff, Hx Hepatitis, Hx MRSA Past Surgical History: Reports: Hx Cardiac Catheterization, Hx Carotid Endarterectomy - Right carotid endarterectomy 2006, Hx Coronary Artery Bypass Graft - Four-vessel bypass 2005, Hx Coronary Stent - Multiple; last implant May 01, 2016, Hx Hysterectomy, Hx Open Heart Surgery - quad bypass 10/2006, Hx Orthopedic Surgery. Denies: Hx Mastectomy, Hx Pacemaker - Immunizations Hx Diphtheria, Pertussis, Tetanus Vaccination: Yes Hx Pneumococcal Vaccination: 08/31/12 Review of Systems - Review of Systems Notes: Constitutional: Negative for fever. HENT: Negative for sore throat. Eyes: Negative for visual changes. Cardiovascular: Negative for chest pain. Respiratory: Negative for shortness of breath. Gastrointestinal: Positive for bright red blood per rectum Genitourinary: Negative for dysuria. Musculoskeletal: Negative for back pain. Skin: Negative for rash. Neurological: Negative for headaches, weakness or numbness. 10 point ROS negative except as marked above and in HPI. Physical Exam - Vital signs Vitals: Temp Pulse Resp BP Pulse Ox 98.6 F 72 16 150/63 H 96 10/31/18 18:50 10/31/18 18:50 10/31/18 18:50 10/31/18 18:50 10/31/18 18:50 Interpretation: Hypertensive Notes: PHYSICAL EXAMINATION: GENERAL: Well-appearing, well-nourished and in no acute distress. HEAD: Atraumatic, normocephalic. EYES: Pupils equal round and reactive to light, extraocular movements intact, sclera anicteric, conjunctiva are normal. ENT: nares patent, oropharynx clear without exudates. Moist mucous membranes. NECK: Normal range of motion, supple without lymphadenopathy LUNGS: Breath sounds clear to auscultation bilaterally and equal. No wheezes rales or rhonchi. HEART: Regular rate and rhythm without murmurs ABDOMEN: Soft, nontender, normoactive bowel sounds. No guarding, no rebound. No masses appreciated. Rectal: Multiple nonthrombosed external hemorrhoids. No blood on digital rectal examination. EXTREMITIES: Normal range of motion, no pitting or edema. No cyanosis. NEUROLOGICAL: No focal neurological deficits. Moves all extremities spontaneously and on command. PSYCH: Normal mood, normal affect. SKIN: Warm, Dry, normal turgor, no rashes or lesions noted. Course - Re-evaluation Re-evalutation: 10/31/18 21:23 Presentation is most consistent with uncomplicated external hemorrhoids. She does have many, nonthrombosed external hemorrhoids on exam. No blood on rectal examination. No evidence of anemia on CBC. Patient's abdominal exam is otherwise benign. I do not suspect a more significant lower GI bleed or upper GI bleed based on history, vitals, normal hemoglobin, and patient's overall well appearance. At this time will discharge with return precautions and follow -up recommendations. Verbal discharge instructions given a the bedside and opportunity for questions given. Medication warnings reviewed. Patient is in agreement with this plan and has verbalized understanding of return precautions and the need for primary care follow-up in the next 24-72 hours. - Vital Signs Vital signs: Temp Pulse Resp BP Pulse Ox 98.3 F 64 18 150/68 H 95 10/31/18 21:43 10/31/18 21:43 10/31/18 21:43 10/31/18 21:43 10/31/18 21:43 - Laboratory Result Diagrams: 10/31/18 19:56 10/31/18 19:56 Laboratory results interpreted by me: 10/31/18 10/31/18 19:56 19:56 WBC 3.5 L Seg Neutrophils % 34.4 L Lymphocytes % 48.9 H Absolute Neutrophils 1.2 L Total Protein 6.2 L Discharge - Discharge Clinical Impression: Rectal bleeding, External hemorrhoids Condition: Good Disposition: HOME, SELF-CARE Additional Instructions: You were seen today for hemorrhoids. The best treatment is to avoid straining while having bowel moments, avoiding heavy lifting, or any other activity that causes you to bear down forcefully. You need to make sure that your stools are soft and should start taking Docusate 200mg in the morning and at night until your stools are very soft and you can have a bowel movement without any straining. You can also soak in warm water, apply topical hemorrhoid cream that can be purchased at the store, and take tylenol or ibuprofen per box instructions as needed for pain. Please follow-up with your primary doctor. Return if you begin to have persistent bleeding, worsening pain, abdominal pain , fever >101, or any other symptoms that are concerning to you. Referrals: ANA LOZANO MD [Primary Care Provider] - Follow up as needed
[2018-10-31 22:03] VITALS: BP 150/68
== END 2018-10-31 21:43 | disposition home or self-care (01) ==
LOC: ER 18:29
DX: K62.5 Hemorrhage of anus and rectum (principal); K64.4 Residual hemorrhoidal skin tags; R19.4 Change in bowel habit; I10 Essential (primary) hypertension; J44.9 Chronic obstructive pulmonary disease, unspecified; I25.10 Atherosclerotic heart disease of native coronary artery without angina pectoris; Z79.02 Long term (current) use of antithrombotics/antiplatelets; Z87.19 Personal history of other diseases of the digestive system; Z88.8 Allergy status to other drugs, medicaments and biological substances; Z88.0 Allergy status to penicillin; Z87.891 Personal history of nicotine dependence
CPT/HCPCS: 99283; 96374; 86900; 86901; 36415; 86850; 85025; 85610; 85730; 80053; C9113; S0164

== ENCOUNTER 2018-11-20 10:06 | Emergency (ER) | payer MEDICARE, OTHER ==
[2018-11-20 11:18] LABS: ABSOLUTE EOSINOPHILS # (AUTO) 0.1 10^3/uL (0.0-0.6); ABSOLUTE LYMPHOCYTES (AUTO) 0.9 10^3/uL (0.5-4.7); ABSOLUTE MONOCYTES (AUTO) 0.4 10^3/uL (0.1-1.4); ABSOLUTE NEUT (AUTO) 1.6 10^3/uL (1.7-8.2); BASOPHILS % (AUTO) 1.3 % (0-2); EOSINOPHILS % (AUTO) 3.4 % (0-6); HEMATOCRIT 34.6 % (36.0-47.0); HEMOGLOBIN 11.8 g/dL (12.0-15.5); LYMPHOCYTES % (AUTO) 30.2 % (13-45); MEAN CORPUSCULAR HGB CONC 34.1 g/dL (32.0-36.0); MEAN CORPUSCULAR VOLUME 94 fl (80-97); MONOCYTES % (AUTO) 12.6 % (3-13); PLATELET COUNT 165 10^3/uL (150-450); RED BLOOD COUNT 3.69 10^6/uL (3.72-5.28); RED CELL DISTRIBUTION WIDTH 13.4 % (11.5-14.0); SEGMENTED NEUTROPHILS % (AUTO) 52.5 % (42-78); TOTAL CELLS COUNTED % (AUTO) 100 %
--- NOTE | 2018-11-20 11:19 | ER Document Report ---
ED General - General Chief Complaint: Facial Droop Stated Complaint: FACIAL SWELLING Time Seen by Provider: 11/20/18 10:22 Mode of Arrival: Ambulatory Information source: Patient, Office, [facility] Records, Outside Facility Records Notes: 78-year-old female with hypertension, hyperlipidemia, COPD, coronary artery disease, peripheral vascular disease, known abdominal aortic aneurysm presents with concern for facial droop that occurred yesterday but has resolved. Patient states that yesterday afternoon she had some left sided mouth and eye droop which resolved. She states that she did call her vascular surgeon who performed an endarterectomy 5 days ago but was not called back until today when they advised her to come to the emergency department. Patient currently only complaining of feeling weak, and a sore throat. She denies headache, visual changes, chest pain, shortness of breath, abdominal pain, nausea, vomiting, dysuria, back pain. TRAVEL OUTSIDE OF THE [place] IN LAST 30 DAYS: No - HPI Onset: Yesterday Onset/Duration: Sudden, Gone Quality of pain: No pain Severity: None Associated symptoms: denies: Chest pain, Chills, Nonproductive cough, Productive cough, Fever, Nausea, Vomiting, Shortness of breath Exacerbated by: Denies Relieved by: Denies Similar symptoms previously: No Recently seen / treated by doctor: Yes - Related Data Allergies/Adverse Reactions: pseudoephedrine HCl [From Sudafed] Allergy (Mild, Verified 10/31/18 19:12) nausea and vomiting amoxicillin Allergy (Verified 10/31/18 19:12) Past Medical History - General Information source: Patient, [facility] Records, Outside Facility Records - Social History Smoking Status: Former Smoker Frequency of alcohol use: None Drug Abuse: None Lives with: Family Family History: Reviewed & Not Pertinent, CAD Patient has suicidal ideation: No Patient has homicidal ideation: No - Past Medical History Cardiac Medical History: Reports: Hx Coronary Artery Disease, Hx Hypercholesterolemia, Hx Hypertension, Hx Peripheral Vascular Disease Denies: Hx Congestive Heart Failure, Hx DVT, Hx Heart Attack, Hx Pulmonary Embolism Pulmonary Medical History: Reports: Hx COPD Denies: Hx Asthma, Hx Sleep Apnea Neurological Medical History: Denies: Hx Cerebrovascular Accident, Hx Seizures Endocrine Medical History: Denies: Hx Diabetes Mellitus Type 1, Hx Diabetes Mellitus Type 2, Hx Hyperthyroidism, Hx Hypothyroidism Renal/ Medical History: Denies: Hx Peritoneal Dialysis GI Medical History: Denies: Hx Cirrhosis, Hx Gastroesophageal Reflux Disease, Hx Hepatitis, Hx Hiatal Hernia, Hx Ulcer Musculoskeletal Medical History: Reports Hx Arthritis Psychiatric Medical History: Denies: Hx Depression Infectious Medical History: Denies: Hx C-Diff, Hx Hepatitis, Hx MRSA Past Surgical History: Reports: Hx Cardiac Catheterization, Hx Carotid Endarterectomy - Right carotid endarterectomy 2006, Hx Coronary Artery Bypass Graft - Four-vessel bypass 2005, Hx Coronary Stent - Multiple; last implant May 01, 2016, Hx Hysterectomy, Hx Open Heart Surgery - quad bypass 10/2006, Hx Orthopedic Surgery. Denies: Hx Mastectomy, Hx Pacemaker - Immunizations Hx Diphtheria, Pertussis, Tetanus Vaccination: Yes Hx Pneumococcal Vaccination: 08/31/12 Review of Systems - Review of Systems Notes: REVIEW OF SYSTEMS: CONSTITUTIONAL : Denies fever, chills, or sweats. Denies recent illness. Denies weight loss, recent hospitalizations. EENT: Denies visual changes, eye pain. Denies sore throat, oral lesions, difficulty swallowing. CARDIOVASCULAR: Denies chest pain. Denies palpitations. Denies lower extremity edema. RESPIRATORY: Denies cough. Denies shortness of breath, wheezing. GASTROINTESTINAL: Denies abdominal pain or distention. Denies nausea, vomiting, or diarrhea. Denies blood in vomitus, stools, or per rectum. Denies black, tarry stools. Denies constipation. GENITOURINARY: Denies difficulty urinating, painful urination, frequency, blood in urine, or vaginal discharge. MUSCULOSKELETAL: Denies back or neck pain or stiffness. Denies joint pain or swelling. SKIN: Denies rash, lesions or sores. HEMATOLOGIC : Denies easy bruising or bleeding. LYMPHATIC: Denies swollen glands. NEUROLOGICAL: Denies confusion or altered mental status. Denies loss of consciousness. Denies dizziness or lightheadedness. Denies headache. Denies weakness or paralysis. Denies problems difficulty with ambulation, slurred speech. Denies sensory loss, numbness, or tingling. Denies seizures. PSYCHIATRIC: Denies anxiety or stress. Denies depression, suicidal ideation, or homicidal ideation. Denies visual or auditory hallucinations. Physical Exam - Vital signs Vitals: Temp Pulse Resp BP Pulse Ox 98.6 F 73 20 137/65 H 93 11/20/18 10:21 11/20/18 10:21 11/20/18 10:21 11/20/18 10:21 11/20/18 10:21 Interpretation: Hypertensive - Notes Notes: PHYSICAL EXAMINATION: GENERAL: Well-appearing, well-nourished and in no acute distress. HEAD: Atraumatic, normocephalic. EYES: Pupils equal round and reactive to light, extraocular movements intact, conjunctiva are normal. ENT: Nares patent, oropharynx clear without exudates. Moist mucous membranes. NECK: Normal range of motion, supple without lymphadenopathy LUNGS: Breath sounds clear to auscultation bilaterally and equal. No wheezes rales or rhonchi. HEART: Regular rate and rhythm without murmurs ABDOMEN: Soft, nontender, nondistended abdomen. No guarding, no rebound. No masses appreciated. Female : deferred Musculoskeletal: Normal range of motion, no pitting or edema. No cyanosis. NEUROLOGICAL: Cranial nerves grossly intact. Normal speech, normal gait. Normal sensory, motor exams. NIH-0 PSYCH: Normal mood, normal affect. SKIN: Warm, Dry, normal turgor, no rashes or lesions noted. Course - Re-evaluation Re-evalutation: Laboratory 11/20/18 11/20/18 11/20/18 10:50 10:50 10:50 WBC 3.0 L RBC 3.69 L Hgb 11.8 L Hct 34.6 L MCV 94 MCH 32.0 MCHC 34.1 RDW 13.4 Plt Count 165 Seg Neutrophils % 52.5 Lymphocytes % 30.2 Monocytes % 12.6 Eosinophils % 3.4 Basophils % 1.3 Absolute Neutrophils 1.6 L Absolute Lymphocytes 0.9 Absolute Monocytes 0.4 Absolute Eosinophils 0.1 Absolute Basophils 0.0 PT 13.4 INR 0.97 Sodium 140.8 Potassium 4.4 Chloride 104 Carbon Dioxide 31 H Anion Gap 6 BUN 15 Creatinine 0.87 Est GFR ( Amer) > 60 Est GFR (Non-Af Amer) > 60 Glucose 90 Calcium 9.4 Total Bilirubin 1.4 H Direct Bilirubin 0.2 Neonat Total Bilirubin Not Reportable Neonat Direct Bilirubin Not Reportable Neonat Indirect Bili Not Reportable AST 26 ALT 21 Alkaline Phosphatase 56 Total Protein 6.2 L Albumin 3.7 Urine Color Urine Appearance Urine pH Ur Specific [place] Urine Protein Urine Glucose (UA) Urine Ketones Urine Blood Urine Nitrite Urine Bilirubin Urine Urobilinogen Ur Leukocyte Esterase Urine WBC (Auto) Urine RBC (Auto) U Hyaline Cast (Auto) Squamous Epi Cells Auto Urine Mucus (Auto) Urine Ascorbic Acid 11/20/18 11:34 WBC RBC Hgb Hct MCV MCH MCHC RDW Plt Count Seg Neutrophils % Lymphocytes % Monocytes % Eosinophils % Basophils % Absolute Neutrophils Absolute Lymphocytes Absolute Monocytes Absolute Eosinophils Absolute Basophils PT INR Sodium Potassium Chloride Carbon Dioxide Anion Gap BUN Creatinine Est GFR ( Amer) Est GFR (Non-Af Amer) Glucose Calcium Total Bilirubin Direct Bilirubin Neonat Total Bilirubin Neonat Direct Bilirubin Neonat Indirect Bili AST ALT Alkaline Phosphatase Total Protein Albumin Urine Color YELLOW Urine Appearance SLIGHTLY-CLOUDY Urine pH 6.0 Ur Specific [place] 1.014 Urine Protein NEGATIVE Urine Glucose (UA) NEGATIVE Urine Ketones NEGATIVE Urine Blood NEGATIVE Urine Nitrite NEGATIVE Urine Bilirubin NEGATIVE Urine Urobilinogen NEGATIVE Ur Leukocyte Esterase SMALL H Urine WBC (Auto) 4 Urine RBC (Auto) 2 U Hyaline Cast (Auto) 1 Squamous Epi Cells Auto 9 Urine Mucus (Auto) RARE Urine Ascorbic Acid NEGATIVE Head CT 11/20/18 11:11 IMPRESSION: NORMAL BRAIN CT WITHOUT CONTRAST. EVIDENCE OF ACUTE STROKE: NO. Head CTA 11/20/18 14:38 IMPRESSION: 1. The patient is status post right carotid endarterectomy and stenting of the origin of the left internal carotid artery without high-grade stenosis or occlusion. 2. There is pipe like calcific atherosclerosis of the distal intracranial carotid arteries, with approximately 50% calcific stenosis bilaterally. The anterior, middle, posterior cerebral arteries are all patent distally to the carotid termini. No evidence of aneurysm or focal stenosis. 3. The patient is status post left subclavian artery stenting, with probable occlusion at the origin of the left vertebral artery. There is multifocal high- grade stenosis and occlusion of the left vertebral artery, which is distally patent, likely due to retrograde filling from the basilar system. There is calcific atherosclerosis at the origin of the right vertebral artery without high-grade stenosis. The vessel is distally patent to the basilar confluence. 4. Emphysema. Neck CTA 11/20/18 14:38 IMPRESSION: 1. The patient is status post right carotid endarterectomy and stenting of the origin of the left internal carotid artery without high-grade stenosis or occlusion. 2. There is pipe like calcific atherosclerosis of the distal intracranial carotid arteries, with approximately 50% calcific stenosis bilaterally. The anterior, middle, posterior cerebral arteries are all patent distally to the carotid termini. No evidence of aneurysm or focal stenosis. 3. The patient is status post left subclavian artery stenting, with probable occlusion at the origin of the left vertebral artery. There is multifocal high- grade stenosis and occlusion of the left vertebral artery, which is distally patent, likely due to retrograde filling from the basilar system. There is calcific atherosclerosis at the origin of the right vertebral artery without high-grade stenosis. The vessel is distally patent to the basilar confluence. 4. Emphysema. 78-year-old female with known extensive vascular disease presents with complaint of facial droop that occurred yesterday but has now resolved. Patient did have a recent left carotid stent placement 5 days ago. Upon arrival NIH was performed and 0. Patient has no focal neurologic deficits and ambulates without difficulty. Labs are unremarkable. CT of the head was obtained and within normal limits. CTA was obtained and showed varying vessels with significant occlusion. I did contact the vascular surgeon who reviewed the report that I faxed to him with his imaging and he states that there is no concerning findings on my imaging today. He states that this is similar to her previous imaging prior to stent placement. Patient was in the emergency department for 6 hours without return of facial droop or neuro deficits. 11/20/18 14:25 Doctor's Kayy's office contacted 11/20/18 14:32 Unable to contact vascular surgeon but was given a [facility] and will attempt him there 11/20/18 14:36 Spoke to "s nurse practitioner Rima Robert who spoke directly to him. He states that the patient historically has had intermittent facial drooping. He does not recommend MRI at this time but does recommend a CTA of the head and neck. 11/20/18 15:46 Called back Rima Robert nurse practitioner for the patient's vascular surgeon with CTA results. I have faxed them to her and am awaiting a return call back. 11/20/18 16:[address] Sultana who reviewed the patient's CTA that was performed today. He states that he sees nothing concerning and that these findings are chronic. He wants to assure that the patient is taking aspirin and Plavix for which she is. Patient is medically maximized and is currently on aspirin, Plavix and a statin. She has remained neurologically intact throughout her ED course. I will contact her daughter at [phone] to let her know that her mother is ready to be picked up. 11/20/18 18:55 11/20/18 18:56 Patient was evaluated and treated as appropriate for the patient's presenting symptoms and complaint, with consideration of any critical or life threatening conditions that may be associated with their obtained history and exam as noted above. All results were discussed with patient and, the patient's vascular surgeon and the patient's daughter, patient provided the opportunity to ask questions, and express concerns. Patient was educated on treatments based on their presumed diagnosis as noted above. At this time we will discharge the patient with return precautions and follow-up recommendations. Verbal discharge instructions given a the bedside. Medication warnings reviewed. Patient is in agreement with this plan and has verbalized understanding of return precautions. After careful consideration I feel that that patient can be safely discharged from the emergency department, they were advised to followup with a primary care physician in 2-3 days. Dictation on this chart was performed using voice recognition software and may result in unintended grammatical, spelling, syntax or errors. - Vital Signs Vital signs: Temp Pulse Resp BP Pulse Ox 98.1 F 64 17 162/68 H 97 11/20/18 16:40 11/20/18 16:40 11/20/18 16:40 11/20/18 16:40 11/20/18 16:40 - Laboratory Result Diagrams: 11/20/18 10:50 11/20/18 10:50 Laboratory results interpreted by me: 11/20/18 11/20/18 11/20/18 10:50 10:50 11:34 WBC 3.0 L RBC 3.69 L Hgb 11.8 L Hct 34.6 L Absolute Neutrophils 1.6 L Carbon Dioxide 31 H Total Bilirubin 1.4 H Total Protein 6.2 L Ur Leukocyte Esterase SMALL H - Diagnostic Test Radiology reviewed: Image reviewed, Reports reviewed Critical Care Note - Critical Care Note Total time excluding time spent on procedures (mins): 40 - Minutes of critical care time spent in direct contact evaluating and reevaluating the patient, treating symptoms, reviewing labs and studies and speaking with family and consultants excluding any procedures Discharge - Discharge Clinical Impression: Peripheral vascular disease, Reported facial droop HTN (hypertension) Qualifiers: Hypertension type: unspecified Qualified Code(s): I10 - Essential (primary) hypertension Condition: Good Disposition: HOME, SELF-CARE Additional Instructions: You had a normal neurologic exam today. CT of your head and neck were obtained and reviewed by her vascular surgeon who does not feel that this is different from previous imaging. He wants to assure that you are taking your aspirin and Plavix. Please return to the emergency room with any concerning symptoms. Please keep your scheduled appointment with your vascular surgeon. Follow up with your [id number] hours for further care or return to the ED IMMEDIATELY if symptoms worsen or you have any concerns. If you cannot afford to follow up with your primary care physician a list of low cost clinics have been provided at the end of your discharge papers as well. Most prescribed medications have multiple side effects. The safest thing to do is when filling your prescription speak to your pharmacist regarding possible interactions with your normal home medications and over the counter medications such as Ibuprofen, Tylenol, Benadryl. If you experience any symptoms that cause you discomfort or concern you should discontinue the medication immediately and return to the emergency room or call your primary care physician. Forms: Elevated Blood Pressure Referrals: ANA LOZANO MD [ASSOCIATE] - Follow up as needed ED NIH Stroke Scale - NIH Stroke Scale *: 1. NIH scale should be completed with appropriate accompanying assessment tools. *: 2. The NIH should reflect what the patient is capable of doing and should not be coached by the clinician. 1a. Level of Consciousness: 0=Alert;keenly responsive -: 1=Drowsy -: 2=Obtunded -: 3=Coma/unresponsive or reflex to noxious stimuli. 1a. Responses: 0 1b. Orientation Questions: a. What month is it? -: b. How old are you? -: 0=Answers both questions correctly. -: 1=Answers one question correctly or patient is intubated or has orotracheal trauma. -: 2=Answers neither question correctly. 1b. Responses: 0 1c. Response to commands: a. Open and close eyes? -: b. 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 -: Credit is given despite weakness. Demonstration of task is permitted. Substitute command if hands cannot be used. -: 0=Performs both tasks correctly -: 1=Performs one task correctly -: 2=Performs neither task correctly 1c. Responses: 0 2. Gaze: Establish eye contact and instruct patient to "Follow my finger" -: 0=Normal -: 1=Partial gaze palsy. Gaze is abnormal in one or both eyes, but where forced deviation or total gaze paresis is not present. -: 2=Forced deviation or total gaze paresis. 2. Responses: 0 3. Visual Faith: Sees fingers in all four quadrants. -: 0=No visual loss. -: 1=Partial hemianopsia. -: 2=Complete hemianopsia. -: 3=Bilateral hemianopsia (including Cortical blindness) 3. Responses: 0 4. Facial Movement: Instruct patient to: -: a. Show me your teeth -: b. Raise your eyebrows -: c. Close your eyes -: d. Smile -: 0=Normal symmetrical movement -: 1=Minor paralysis (flattened nasolabial fold, asymmetry on smiling). -: 2=Partial paralysis (total or near total paralysis of lower face). -: 3=Complete paralysis of upper and lower face 4. Responses: 0 5. Motor functions (left arm): Alternate sides and extend each arm with palms down (90 degrees if sitting or 45 degrees for supine). -: 0=No drift;limb holds for full 10 seconds. -: 1=Drift; limb holds but drifts down before full 10 seconds, but does not hit bed. -: 2=Some effort against gravity; limb cannot get to or maintain position. -: 3=No effort against gravity; limb falls. -: 4=No movement. -: UN=Amputation, joint fusion, explain in comments. 5. Responses (left arm): 0 5. Motor Functions (right arm): Alternate sides and extend each arm with palms down (90 degrees if sitting or 45 degrees for supine). -: 0=No drift;limb holds for full 10 seconds. -: 1=Drift; limb holds but drifts down before full 10 seconds, but does not hit bed. -: 2=Some effort against gravity; limb cannot get to or maintain position. -: 3=No effort against gravity; limb falls. -: 4=No movement. -: UN=Amputation, joint fusion, explain in comments. 5. Responses (right arm): 0 6. Motor Functions (left leg): With patient lying supine, alternate sides and extend each leg (30 degrees always while supine). -: 0=No drift, leg holds position for full 5 seconds -: 1=Drift; leg falls before full 5 seconds but does not hit bed. -: 2=Some effort against gravity, leg falls to bed but some effort against gravity. -: 3=No effort against gravity, leg falls to bed immediately. -: 4=No movement. -: UN=Amputation, joint fusion; explain in comments. 6. Responses (left leg): 0 6. Motor Functions (right leg): With patient lying supine, alternate sides and extend each leg (30 degrees always while supine). -: 0=No drift, leg holds position for full 5 seconds -: 1=Drift; leg falls before full 5 seconds but does not hit bed. -: 2=Some effort against gravity, leg falls to bed but some effort against gravity. -: 3=No effort against gravity, leg falls to bed immediately. -: 4=No movement. -: UN=Amputation, joint fusion; explain in comments. 6. Responses (right leg): 0 7. Limb Ataxia: With eyes open instruct patient to: -: a. "Touch your finger to your nose". -: b. "Touch your heel to your leonard" -: 0=Absent -: 1=Present in one limb. -: 2=Present in two limbs. -: UN=Amputation or joint fusion; explain in comments. 7. Responses: 0 8. Sensory: Test sensation using pinprick or noxious stimuli. Test as many body parts as possible. -: 0=Normal;no sensory loss -: 1=Mile to moderate sensory loss (patient feels pin prick but is less sharp on affected side). -: 2=Severe or total sensory loss. 8. Responses: 0 9. Best Language: Instruct patient to: -: a. "Describe what you see in this picture." -: b. "Name the items in this picture." -: c. "Read these sentences." -: 0=No aphasia, normal -: 1=Mild to moderate aphasia. -: 2=Severe aphasia -: 3=Mute, global aphasia, no usable speech or auditory comprehension. 9. Responses: 0 10. Articulation, Dysarthia: Instruct patient to: -: "Read these words" or "Repeat these words" -: 0=Normal -: 1=Mild to moderate; patient may slur some words but can be understood without difficulty. -: 2=Severe; patients speech so slurred as to be unintelligible in the absence of dysphasia. -: UN=Intubated or other physical barrier, explain in comments. 10. Responses: 0 11. Extinction or inattention: 0=No abnormality -: 1= Visual, tactile, auditory, spatial, or personal inattention or extinction to bilateral simulation in one or the sensory modalities. -: 2=Profound jose-inattention or jose-inattention to more than one modality; does not recognize own hand. 11. Responses: 0 Total Score: 0
[2018-11-20 11:20] LABS: INTERNATIONAL RATION (INR) 0.97
[2018-11-20 11:22] LABS: PROTHROMBIN TIME 13.4 SEC (11.4-15.4)
[2018-11-20 11:29] LABS: ALANINE AMINOTRANSFERASE 21 U/L (9-52); ALBUMIN 3.7 g/dL (3.5-5.0); ALKALINE PHOSPHATASE 56 U/L (38-126); ANION GAP 6 (5-19); ASPARTATE AMINO TRANSFERASE 26 U/L (14-36); BILIRUBIN,DIRECT 0.2 mg/dL (0.0-0.4); BILIRUBIN,TOTAL 1.4 mg/dL (0.2-1.3); BLOOD UREA NITROGEN 15 mg/dL (7-20); CALCIUM 9.4 mg/dL (8.4-10.2); CARBON DIOXIDE 31 mmol/L (22-30); CHLORIDE 104 mmol/L (98-107); GLUCOSE 90 mg/dL (75-110); POTASSIUM 4.4 mmol/L (3.6-5.0); SODIUM 140.8 mmol/L (137-145); TOTAL PROTEIN 6.2 g/dL (6.3-8.2)
--- NOTE | 2018-11-20 11:46 | RADIOLOGY REPORT (SQ) ---
EXAM DESCRIPTION: CT HEAD WITHOUT COMPLETED DATE/TIME: 11/20/2018 11:25 am REASON FOR STUDY: facial droop yest s/p endoarter COMPARISON: CT brain 10/22/2010 TECHNIQUE: Axial images acquired through the brain without intravenous contrast. Images reviewed wi th bone, brain and subdural windows. Additional sagittal and coronal reconstructions were generated. Images stored on PACS. All CT scanners at this facility use dose modulation, iterative reconstruction, and/or weight based d osing when appropriate to reduce radiation dose to as low as reasonably achievable (ALARA). [facility]: Dose Right [facility]: CareDose [facility]: Dose Right [facility]: Teradose 4D [facility]: [place] RADIATION DOSE: CT Rad equipment meets quality standard of care and radiation dose reduction techniq ues were employed. CTDIvol: 53.2 mGy. DLP: 964 mGy-cm. mGy. LIMITATIONS: None. FINDINGS: VENTRICLES: Normal size and contour. CEREBRUM: No masses. No hemorrhage. No midline shift. No evidence for acute infarction. Normal gra y/white matter differentiation. No areas of low density in the white matter. CEREBELLUM: No masses. No hemorrhage. No alteration of density. No evidence for acute infarction. EXTRAAXIAL SPACES: No fluid collections. No masses. ORBITS AND GLOBE: No intra- or extraconal masses. Normal contour of globe without masses. CALVARIUM: No fracture. PARANASAL SINUSES: No fluid or mucosal thickening. SOFT TISSUES: No mass or hematoma. OTHER: No other significant finding. IMPRESSION: NORMAL BRAIN CT WITHOUT CONTRAST. EVIDENCE OF ACUTE STROKE: NO. COMMENT: Quality ID # [id number]: Final reports with documentation of one or more dose reduction techniques (e.g., Automated exposure control, adjustment of the mA and/or kV according to patient size, use of iterative reconstruction technique) TECHNICAL DOCUMENTATION: JOB ID: [id number] [employer]- All Rights Reserved Reading location - IP/workstation name: [email or web address]
[2018-11-20 11:53] LABS: APPEARANCE,URINE SLIGHTLY-CLOUDY; BILIRUBIN,URINE NEGATIVE (NEGATIVE); COLOR,URINE YELLOW; GLUCOSE, URINE NEGATIVE (NEGATIVE); KETONES,URINE NEGATIVE (NEGATIVE); LEUKOCYTE ESTERASE,URINE SMALL (NEGATIVE); NITRITE,URINE NEGATIVE (NEGATIVE); PROTEIN,URINE NEGATIVE (NEGATIVE); URINE SPECIFIC GRAVITY 1.014; UROBILINOGEN,URINE NEGATIVE mg/dL (<2.0)
--- NOTE | 2018-11-20 15:23 | RADIOLOGY REPORT (SQ) ---
EXAM DESCRIPTION: CTA HEAD; CTA NECK COMPLETED DATE/TIME: 11/20/2018 3:02 pm REASON FOR STUDY: facial droop COMPARISON: None. TECHNIQUE: Post IV contrast scanning, thin section axial imaging through the neck and brain to evalu ate the arterial structures. Source and MIP images are saved and reviewed on PACS. Advanced 3D imaging as volume-rendering, MIPs, SSD performed? yes All CT scanners at this facility use dose modulation, iterative reconstruction, and/or weight based d osing when appropriate to reduce radiation dose to as low as reasonably achievable (ALARA). [facility]: Dose Right [facility]: CareDose [facility]: Dose Right [facility]: Teradose 4D [facility]: [employer] CONTRAST TYPE AND DOSE: contrast/concentration: Isovue 350.00 mg/ml; Total Contrast Delivered: 70.0 ml; Total Saline Delivered: 75.0 ml RENAL FUNCTION: GFR > 60. RADIATION DOSE: 409 mGy cm LIMITATIONS: None. FINDINGS: CERVICAL CIRCULATION: The patient is status post right carotid endarterectomy and stentin g of the origin of the left internal carotid artery without high-grade stenosis or occlusion. The pa tient is status post left subclavian artery stenting, with probable occlusion at the origin of the le ft vertebral artery. There is multifocal high-grade stenosis and occlusion of the left vertebral art mayra, which is distally patent, likely due to retrograde filling from the basilar system. [place]: There is pipe like calcific atherosclerosis of the distal intracranial carotid jada meredith, with approximately 50% calcific stenosis bilaterally. The anterior, middle, posterior cerebral arteries are all patent distally to the carotid termini. No evidence of aneurysm or focal stenosis. Patent bilateral posterior communicating arteries and patent anterior communicating artery. POSTERIOR CIRCULATION: The intracranial distal vertebral arteries are patent as is the basilar artery . No aneurysm. BRAIN: No gross enhancing lesions as visualized. The superior cerebral hemispheres are not included in the field of view. BONES: Intact as visualized. SINUSES: No fluid or mucosal thickening. OTHER: Emphysema. IMPRESSION: 1. The patient is status post right carotid endarterectomy and stenting of the origin of the left internal carotid artery without high-grade stenosis or occlusion. 2. There is pipe like calcific atherosclerosis of the distal intracranial carotid arteries, with appr oximately 50% calcific stenosis bilaterally. The anterior, middle, posterior cerebral arteries are a ll patent distally to the carotid termini. No evidence of aneurysm or focal stenosis. 3. The patient is status post left subclavian artery stenting, with probable occlusion at the origi n of the left vertebral artery. There is multifocal high-grade stenosis and occlusion of the left ve rtebral artery, which is distally patent, likely due to retrograde filling from the basilar system. There is calcific atherosclerosis at the origin of the right vertebral artery without high-grade sten osis. The vessel is distally patent to the basilar confluence. 4. Emphysema. TECHNICAL DOCUMENTATION: JOB ID: [id number] Quality ID # [id number]: Final reports with documentation of one or more dose reduction techniques (e.g., Au tomated exposure control, adjustment of the mA and/or kV according to patient size, use of iterative reconstruction technique) 2010 [employer]- All Rights Reserved Reading location - IP/workstation name: [email or web address]
--- NOTE | 2018-11-20 15:23 | RADIOLOGY REPORT (SQ) ---
EXAM DESCRIPTION: CTA HEAD; CTA NECK COMPLETED DATE/TIME: 11/20/2018 3:02 pm REASON FOR STUDY: facial droop COMPARISON: None. TECHNIQUE: Post IV contrast scanning, thin section axial imaging through the neck and brain to evalu ate the arterial structures. Source and MIP images are saved and reviewed on PACS. Advanced 3D imaging as volume-rendering, MIPs, SSD performed? yes All CT scanners at this facility use dose modulation, iterative reconstruction, and/or weight based d osing when appropriate to reduce radiation dose to as low as reasonably achievable (ALARA). [facility]: Dose Right [facility]: CareDose [facility]: Dose Right [facility]: Teradose 4D [facility]: [employer] CONTRAST TYPE AND DOSE: contrast/concentration: Isovue 350.00 mg/ml; Total Contrast Delivered: 70.0 ml; Total Saline Delivered: 75.0 ml RENAL FUNCTION: GFR > 60. RADIATION DOSE: 409 mGy cm LIMITATIONS: None. FINDINGS: CERVICAL CIRCULATION: The patient is status post right carotid endarterectomy and stentin g of the origin of the left internal carotid artery without high-grade stenosis or occlusion. The pa tient is status post left subclavian artery stenting, with probable occlusion at the origin of the le ft vertebral artery. There is multifocal high-grade stenosis and occlusion of the left vertebral art mayra, which is distally patent, likely due to retrograde filling from the basilar system. [place]: There is pipe like calcific atherosclerosis of the distal intracranial carotid jada meredith, with approximately 50% calcific stenosis bilaterally. The anterior, middle, posterior cerebral arteries are all patent distally to the carotid termini. No evidence of aneurysm or focal stenosis. Patent bilateral posterior communicating arteries and patent anterior communicating artery. POSTERIOR CIRCULATION: The intracranial distal vertebral arteries are patent as is the basilar artery . No aneurysm. BRAIN: No gross enhancing lesions as visualized. The superior cerebral hemispheres are not included in the field of view. BONES: Intact as visualized. SINUSES: No fluid or mucosal thickening. OTHER: Emphysema. IMPRESSION: 1. The patient is status post right carotid endarterectomy and stenting of the origin of the left internal carotid artery without high-grade stenosis or occlusion. 2. There is pipe like calcific atherosclerosis of the distal intracranial carotid arteries, with appr oximately 50% calcific stenosis bilaterally. The anterior, middle, posterior cerebral arteries are a ll patent distally to the carotid termini. No evidence of aneurysm or focal stenosis. 3. The patient is status post left subclavian artery stenting, with probable occlusion at the origi n of the left vertebral artery. There is multifocal high-grade stenosis and occlusion of the left ve rtebral artery, which is distally patent, likely due to retrograde filling from the basilar system. There is calcific atherosclerosis at the origin of the right vertebral artery without high-grade sten osis. The vessel is distally patent to the basilar confluence. 4. Emphysema. TECHNICAL DOCUMENTATION: JOB ID: [id number] Quality ID # [id number]: Final reports with documentation of one or more dose reduction techniques (e.g., Au tomated exposure control, adjustment of the mA and/or kV according to patient size, use of iterative reconstruction technique) 2010 [employer]- All Rights Reserved Reading location - IP/workstation name: [email or web address]
[2018-11-20 16:46] VITALS: BP 162/68
== END 2018-11-20 16:40 | disposition home or self-care (01) ==
LOC: ER 10:06
DX: I73.9 Peripheral vascular disease, unspecified (principal); R29.810 Facial weakness; I10 Essential (primary) hypertension; J44.9 Chronic obstructive pulmonary disease, unspecified; I25.10 Atherosclerotic heart disease of native coronary artery without angina pectoris; R53.1 Weakness; J02.9 Acute pharyngitis, unspecified; Z87.891 Personal history of nicotine dependence
CPT/HCPCS: 36415; 70450; 70496; 70498; 80053; 81001; 85025; 85610; 99285

== ENCOUNTER → 2018-12-15 | Outpatient (CLI) | payer MEDICARE, OTHER ==
[2018-12-15 16:46] LABS: HEMATOCRIT 28.8 % (36.0-47.0); HEMOGLOBIN 9.7 g/dL (12.0-15.5); MEAN CORPUSCULAR HEMOGLOBIN 32.2 pg (27.0-33.4); MEAN CORPUSCULAR HGB CONC 33.7 g/dL (32.0-36.0); MEAN CORPUSCULAR VOLUME 96 fl (80-97); PLATELET COUNT 181 10^3/uL (150-450); RED BLOOD COUNT 3.02 10^6/uL (3.72-5.28); WHITE BLOOD COUNT 3.6 10^3/uL (4.0-10.5)
== END ==
LOC: OD 15:12
PROVIDERS: ATTEND Internal Medicine Gastroenterology
DX: K92.2 Gastrointestinal hemorrhage, unspecified (principal)
CPT/HCPCS: 36415; 85027

== ENCOUNTER → 2018-12-18 | Outpatient (CLI) | payer MEDICARE, OTHER ==
[2018-12-18 09:06] LABS: HEMATOCRIT 30.7 % (36.0-47.0); HEMOGLOBIN 10.4 g/dL (12.0-15.5); MEAN CORPUSCULAR HGB CONC 33.8 g/dL (32.0-36.0); MEAN CORPUSCULAR VOLUME 95 fl (80-97); PLATELET COUNT 187 10^3/uL (150-450); RED BLOOD COUNT 3.24 10^6/uL (3.72-5.28); RED CELL DISTRIBUTION WIDTH 14.6 % (11.5-14.0); WHITE BLOOD COUNT 2.9 10^3/uL (4.0-10.5)
== END ==
LOC: OD 08:23
PROVIDERS: ATTEND Internal Medicine Gastroenterology
DX: D64.9 Anemia, unspecified (principal)
CPT/HCPCS: 36415; 85027

== ENCOUNTER 2019-04-11 12:48 | Emergency (ER) | payer MEDICARE, OTHER ==
--- NOTE | 2019-04-11 13:13 | ER Document Report ---
ED General - General Stated Complaint: HIP PAIN Time Seen by Provider: 04/11/19 13:03 Primary Care Provider: DIEGO ALMONTE MD [Primary Care Provider] - Follow up as needed Notes: Patient is a 78-year-old female, history of CAD that presents to the emergency department for chief complaint of syncopal episode and fall and hip pain. Patient apparently was preparing her coffee this morning, standing up, and felt lightheaded and had apparently passed out briefly, and fell onto the floor onto her left side, and hit her head on the cabinet, she did not lose consciousness after hitting her head, states she woke up on the floor, was unable to get up, potentially 2 hours. Her daughter had apparently called her a few times in the morning, and was not getting response, and went to check on her shortly after getting the synagogue as she did not see the patient at synagogue, so they went and found her on the floor, she was somewhat dazed, but was alert, and at that point they called EMS to bring her to the emergency department. At this time the patient is complaining of pain in her hip she rates as a 9 out of 10, and on the left side, denies prior hip fractures in the past. Pain is worse with any movement of her left leg. By EMS she was found to be hypotensive, was given 500 mL IV fluid bolus. She was also given fentanyl 50 mcg. Past Medical History: TIA, CAD, carotid artery stenosis, peripheral vascular disease, peptic ulcer disease Past Surgical History: TAVR, CABG, carotid endarterectomy Social History: Denies current tobacco, alcohol or drug use. Family History: Reviewed and noncontributory for presenting illness Allergies: Reviewed, see documented allergy list. REVIEW OF SYSTEMS: Other than noted above, the 12 point review of systems was reviewed with the patient and were negative, all pertinent findings are included in the HPI. PHYSICAL EXAMINATION: Vital signs reviewed, nursing noted reviewed. GENERAL: Elderly female, appears uncomfortable on exam. HEAD: Atraumatic, normocephalic. EYES: Eyes appear normal, extraocular movements intact, sclera anicteric, pale conjunctiva ENT: nares patent, oropharynx clear without exudates. Moist mucous membranes. NECK: Normal range of motion, supple without lymphadenopathy LUNGS: Breath sounds clear to auscultation bilaterally and equal. No wheezes rales or rhonchi. HEART: Regular rate and rhythm without murmurs ABDOMEN: Soft, nontender, normoactive bowel sounds. No rebound, guarding, or rigidity. No masses appreciated. EXTREMITIES: The left lower extremity, is shortened, and externally rotated, painful with any movement, she is neurovascular intact distally in all extremities though, cap refill less than 3 seconds in all digits. The rest the patient's extremity exam is unremarkable, no deformities noted. And good range of motion otherwise. NEUROLOGICAL: No focal neurological deficits. Motor and sensory grossly intact on exam. PSYCH: Normal mood, normal affect. SKIN: Warm, Dry, normal turgor, no rashes or lesions noted on exposed skin, pallor noted TRAVEL OUTSIDE OF THE [place] IN LAST 30 DAYS: No - Related Data Allergies/Adverse Reactions: pseudoephedrine HCl [From Sudafed] Allergy (Mild, Verified 10/31/18 19:12) nausea and vomiting amoxicillin Allergy (Verified 10/31/18 19:12) Past Medical History - Social History Smoking Status: Never Smoker Family History: Reviewed & Not Pertinent, CAD - Past Medical History Cardiac Medical History: Reports: Hx Coronary Artery Disease, Hx Hypercholesterolemia, Hx Hypertension, Hx Peripheral Vascular Disease Denies: Hx Congestive Heart Failure, Hx DVT, Hx Heart Attack, Hx Pulmonary Embolism Pulmonary Medical History: Reports: Hx COPD Denies: Hx Asthma, Hx Sleep Apnea Neurological Medical History: Denies: Hx Cerebrovascular Accident, Hx Seizures Endocrine Medical History: Denies: Hx Diabetes Mellitus Type 1, Hx Diabetes Mellitus Type 2, Hx Hyperthyroidism, Hx Hypothyroidism Renal/ Medical History: Denies: Hx Peritoneal Dialysis GI Medical History: Denies: Hx Cirrhosis, Hx Gastroesophageal Reflux Disease, Hx Hepatitis, Hx Hiatal Hernia, Hx Ulcer Musculoskeletal Medical History: Reports Hx Arthritis Psychiatric Medical History: Denies: Hx Depression Infectious Medical History: Denies: Hx C-Diff, Hx Hepatitis, Hx MRSA Past Surgical History: Reports: Hx Cardiac Catheterization, Hx Carotid Endarterectomy - Right carotid endarterectomy 2006, Hx Coronary Artery Bypass Graft - Four-vessel bypass 2005, Hx Coronary Stent - Multiple; last implant May 01, 2016, Hx Hysterectomy, Hx Open Heart Surgery - quad bypass 10/2006, Hx Orthopedic Surgery. Denies: Hx Mastectomy, Hx Pacemaker - Immunizations Hx Diphtheria, Pertussis, Tetanus Vaccination: Yes Hx Pneumococcal Vaccination: 08/31/12 Physical Exam - Vital signs Vitals: Resp BP Pulse Ox 23 H 88/41 L 97 04/11/19 12:58 04/11/19 12:58 04/11/19 12:58 Course - Re-evaluation Re-evalutation: Patient seen and examined vital signs reviewed. Laboratory data and imaging were ordered as appropriate for the patient's presenting symptoms and complaint, with consideration of any critical or life threatening conditions that may be associated with their obtained history and exam as noted above. Patient was treated with IV fluid bolusing, for her hypertension Results were reviewed when available and demonstrated severe anemia with a hemoglobin of 5.5, patient was pale on exam, patient was typed and screened, and 3 units of packed red blood cells were ordered, and ordered to be transfused, suspect GI hemorrhage, given patient history, patient was started on IV Protonix bolus and infusion. Patient was mentating well. Patient was noted to have an intertrochanteric comminuted fracture of the left hip, CT of the head and neck were negative, chest x-ray is negative for acute findings. Patient was treated with IV morphine for her pain, as well as Zofran, she had previously received fentanyl by EMS. The patient was re-evaluated and improved from a pain standpoint, I did place a call to transfer the patient, to [facility], to discuss to the hospitalist, with likely need for orthopedic consult given patient's hip fracture. Evaluation was most consistent with acute blood loss anemia, hypertension, syncope, and left intertrochanteric hip fracture. Results were discussed with the patient at this point after careful consideration I feel that that patient should be transferred to [facility] due to need for multiple specialties including gastroenterology, medical service, and orthopedic surgery which were not on-call at this facility. This was discussed with the patient that it is in the best interest for their care to be transferred, the risks and benefits of transfer were discussed, including but not limited to clinical deterioration during transport, respiratory distress, and potential for traumatic injuries. Patient agreed with this plan of care. Case was discussed with Dr. Santiago with the hospitalist team, who graciously accepted the patient onto their service. *Note is created using voice recognition software and may contain spelling, syntax or grammatical errors. Laboratory 04/11/19 04/11/19 04/11/19 12:12 12:12 14:07 WBC Cancelled RBC Cancelled Hgb Cancelled Hct Cancelled MCV Cancelled MCH Cancelled MCHC Cancelled RDW Cancelled Plt Count Cancelled Seg Neutrophils % Cancelled Lymphocytes % Cancelled Monocytes % Cancelled Eosinophils % Cancelled Basophils % Cancelled Absolute Neutrophils Cancelled Absolute Lymphocytes Cancelled Absolute Monocytes Cancelled Absolute Eosinophils Cancelled Absolute Basophils Cancelled Platelet Estimate Cancelled Sodium 140.1 Potassium 3.7 Chloride 104 Carbon Dioxide 24 Anion Gap 12 BUN 22 H Creatinine 1.00 Est GFR ( Amer) > 60 Est GFR (Non-Af Amer) 54 L Glucose 154 H Calcium 9.2 Total Bilirubin 0.5 Direct Bilirubin 0.2 Neonat Total Bilirubin Not Reportable Neonat Direct Bilirubin Not Reportable Neonat Indirect Bili Not Reportable AST 24 ALT 28 Alkaline Phosphatase 48 Total Protein 5.6 L Albumin 3.3 L Slides for Path Review Cancelled Crossmatch See Detail Cervical Spine CT 04/11/19 13:39 IMPRESSION: 1. No acute intracranial abnormality. 2. No cervical spine injury evident. Head CT 04/11/19 13:39 IMPRESSION: 1. No acute intracranial abnormality. 2. No cervical spine injury evident. 04/11/19 16:19 Patient was reevaluated prior to transport, patient was stabilizing out after receiving blood transfusion, blood pressure was improving, pain was currently controlled, patient prepared for transport. - Vital Signs Vital signs: Temp Pulse Resp BP Pulse Ox 97.4 F 73 12 122/50 L 96 04/11/19 15:50 04/11/19 16:32 04/11/19 16:32 04/11/19 16:32 04/11/19 16:32 - Laboratory Result Diagrams: 04/11/19 12:12 04/11/19 12:12 Laboratory results interpreted by me: 04/11/19 04/11/19 04/11/19 12:12 12:12 14:07 RBC 2.00 L Hgb 5.5 L Hct 17.5 L MCHC 31.6 L RDW 18.9 H Seg Neutrophils % 82.8 H Lymphocytes % 11.1 L BUN 22 H Est GFR (Non-Af Amer) 54 L Glucose 154 H Total Protein 5.6 L Albumin 3.3 L Crossmatch See Detail - EKG Interpretation by Me Additional EKG results interpreted by me: EKG demonstrates sinus rhythm with a ventricular rate of 65 bpm, normal axis, QTC 475 ms, there are T wave inversions noted in leads I, aVL, V2 through V6, this is compared to prior EKG, from 04/15/2017, where do inversion lead I, V2 and V3 appear to be new. Otherwise no other changes. Critical Care Note - Critical Care Note Total time excluding time spent on procedures (mins): 40 Comments: Critical care time 40 minutes exclusive from separate billable procedures for a patient requiring complex medical decision making, and high potential for clinical deterioration. In a patient with multiple system abnormalities, with high potential for deterioration including hypotension from acute blood loss anemia, and hip fracture and syncopal episode. Time spent obtaining history from patient or surrogate, discussions with consultants, development of treatment plan with patient or surrogate, evaluation of patient's response to treatment, examination of patient, ordering and performing treatments and interventions, ordering and review of laboratory studies, re-evaluation of patient's condition, ordering and review of radiographic studies and review of old charts Discharge - Discharge Clinical Impression: Acute blood loss anemia Closed intertrochanteric fracture of left femur Qualifiers: Encounter type: initial encounter Fracture alignment: displaced Qualified Code(s): S72.142A - Displaced intertrochanteric fracture of left femur, initial encounter for closed fracture Hypotension Qualifiers: Hypotension type: unspecified hypotension type Qualified Code(s): I95.9 - Hypotension, unspecified Fall Qualifiers: Encounter type: initial encounter Qualified Code(s): W19.XXXA - Unspecified fall, initial encounter Head injury Qualifiers: Encounter type: initial encounter Qualified Code(s): S09.90XA - Unspecified injury of head, initial encounter GI hemorrhage Qualifiers: GI bleed type/associated pathology: unspecified gastrointestinal hemorrhage type Qualified Code(s): K92.2 - Gastrointestinal hemorrhage, unspecified Condition: Serious Disposition: [facility] Referrals: DIEGO ALMONTE MD [Primary Care Provider] - Follow up as needed
[2019-04-11] MEDS ORDERED: MORPHINE SULFATE 10 MG/ML INJ IV ONE (13:14)
[2019-04-11] MEDS ORDERED: ONDANSETRON HCL INJ/PF 4 MG/2 ML SDV IV ONE (13:14)
[2019-04-11] MEDS ORDERED: NORMAL SALINE 500 ML IV ONE (13:42)
[2019-04-11 13:57] LABS: ALANINE AMINOTRANSFERASE 28 U/L (9-52); ALBUMIN 3.3 g/dL (3.5-5.0); ALKALINE PHOSPHATASE 48 U/L (38-126); ANION GAP 12 (5-19); ASPARTATE AMINO TRANSFERASE 24 U/L (14-36); BILIRUBIN,DIRECT 0.2 mg/dL (0.0-0.4); BILIRUBIN,TOTAL 0.5 mg/dL (0.2-1.3); BLOOD UREA NITROGEN 22 mg/dL (7-20); CALCIUM 9.2 mg/dL (8.4-10.2); CARBON DIOXIDE 24 mmol/L (22-30); CHLORIDE 104 mmol/L (98-107); GLUCOSE 154 mg/dL (75-110); POTASSIUM 3.7 mmol/L (3.6-5.0); SODIUM 140.1 mmol/L (137-145); TOTAL PROTEIN 5.6 g/dL (6.3-8.2)
[2019-04-11] MEDS ORDERED: NORMAL SALINE 250 ML IV PRN (13:58)
[2019-04-11] MEDS ORDERED: PANTOPRAZOLE SODIUM 40 MG VIAL IV ONE (14:03)
[2019-04-11] MEDS ORDERED: PANTOPRAZOLE SODIUM 40 MG VIAL IV PRN (14:08)
--- NOTE | 2019-04-11 14:17 | RADIOLOGY REPORT (SQ) ---
EXAM DESCRIPTION: CT HEAD WITHOUT; CT CERVICAL SPINE WITHOUT COMPLETED DATE/TIME: 04/11/2019 2:02 pm REASON FOR STUDY: FALL, HEAD INJURY COMPARISON: See below. TECHNIQUE: Axial images acquired through the brain and cervical spine without intravenous contrast. Images reviewed with brain, subdural, lung, soft tissue and bone windows. Reconstructed coronal and sagittal MPR images reviewed. Images stored on PACS. All CT scanners at this facility use dose modulation, iterative reconstruction, and/or weight based d osing when appropriate to reduce radiation dose to as low as reasonably achievable (ALARA). [facility]: Dose Right [facility]: CareDose [facility]: Dose Right [facility]: Teradose 4D [facility]: [employer] RADIATION DOSE: CT Rad equipment meets quality standard of care and radiation dose reduction techniq ues were employed. CTDIvol: 53.2 mGy. DLP: 1017 mGy-cm.; CT Rad equipment meets quality standard of c are and radiation dose reduction techniques were employed. CTDIvol: 17.0 mGy. DLP: 403 mGy-cm. mGy. LIMITATIONS: None. FINDINGS: Brain: 2017 comparison. No hemorrhage or mass or shift or hydrocephalus or fracture. No rmal appearance. Cervical spine: 2013 comparison. Mild degenerative changes but no posttraumatic malalignment, fract ure or worrisome bone lesion. Mild upper lobe emphysema otherwise clear lung apices. IMPRESSION: 1. No acute intracranial abnormality. 2. No cervical spine injury evident. TECHNICAL DOCUMENTATION: JOB ID: [id number] Quality ID # [id number]: Final reports with documentation of one or more dose reduction techniques (e.g., Au tomated exposure control, adjustment of the mA and/or kV according to patient size, use of iterative reconstruction technique) 2010 [employer]- All Rights Reserved Reading location - IP/workstation name: [email or web address] ELECTRIC [email or web address]
--- NOTE | 2019-04-11 14:17 | RADIOLOGY REPORT (SQ) ---
EXAM DESCRIPTION: CT HEAD WITHOUT; CT CERVICAL SPINE WITHOUT COMPLETED DATE/TIME: 04/11/2019 2:02 pm REASON FOR STUDY: FALL, HEAD INJURY COMPARISON: See below. TECHNIQUE: Axial images acquired through the brain and cervical spine without intravenous contrast. Images reviewed with brain, subdural, lung, soft tissue and bone windows. Reconstructed coronal and sagittal MPR images reviewed. Images stored on PACS. All CT scanners at this facility use dose modulation, iterative reconstruction, and/or weight based d osing when appropriate to reduce radiation dose to as low as reasonably achievable (ALARA). [facility]: Dose Right [facility]: CareDose [facility]: Dose Right [facility]: Teradose 4D [facility]: [employer] RADIATION DOSE: CT Rad equipment meets quality standard of care and radiation dose reduction techniq ues were employed. CTDIvol: 53.2 mGy. DLP: 1017 mGy-cm.; CT Rad equipment meets quality standard of c are and radiation dose reduction techniques were employed. CTDIvol: 17.0 mGy. DLP: 403 mGy-cm. mGy. LIMITATIONS: None. FINDINGS: Brain: 2017 comparison. No hemorrhage or mass or shift or hydrocephalus or fracture. No rmal appearance. Cervical spine: 2013 comparison. Mild degenerative changes but no posttraumatic malalignment, fract ure or worrisome bone lesion. Mild upper lobe emphysema otherwise clear lung apices. IMPRESSION: 1. No acute intracranial abnormality. 2. No cervical spine injury evident. TECHNICAL DOCUMENTATION: JOB ID: [id number] Quality ID # [id number]: Final reports with documentation of one or more dose reduction techniques (e.g., Au tomated exposure control, adjustment of the mA and/or kV according to patient size, use of iterative reconstruction technique) 2010 [employer]- All Rights Reserved Reading location - IP/workstation name: [email or web address] [email or web address]
--- NOTE | 2019-04-11 14:19 | RADIOLOGY REPORT (SQ) ---
EXAM DESCRIPTION: CHEST SINGLE VIEW; HIP LEFT AP/LATERAL COMPLETED DATE/TIME: 04/11/2019 1:56 pm REASON FOR STUDY: SYNCOPE; FALL, LEFT HIP PAIN COMPARISON: See below. FINDINGS: One-view chest: 05/14/2016 comparison. Low lung volumes but no evidence of pneumothorax or abnormal pulmonary opacity. Stable cardiomediastinal silhouette. Stable enchondroma in the proxima l right humerus. Osteopenia without gross fracture. Three views left hip and pelvis: AP pelvis along with frog lateral and AP dedicated left hip. No pr iors. COMMINUTED INTRATROCHANTERIC FRACTURE OF THE LEFT HIP with varus angulation. Fracture extends sub trochanteric with lateral view demonstrating minimal anterior displacement and slight posterior angulation as well. Osteopenia otherwise. TECHNICAL DOCUMENTATION: JOB ID: [id number] Reading location - IP/workstation name: [email or web address]
--- NOTE | 2019-04-11 14:19 | RADIOLOGY REPORT (SQ) ---
EXAM DESCRIPTION: CHEST SINGLE VIEW; HIP LEFT AP/LATERAL COMPLETED DATE/TIME: 04/11/2019 1:56 pm REASON FOR STUDY: SYNCOPE; FALL, LEFT HIP PAIN COMPARISON: See below. FINDINGS: One-view chest: 05/14/2016 comparison. Low lung volumes but no evidence of pneumothorax or abnormal pulmonary opacity. Stable cardiomediastinal silhouette. Stable enchondroma in the proxima l right humerus. Osteopenia without gross fracture. Three views left hip and pelvis: AP pelvis along with frog lateral and AP dedicated left hip. No pr iors. COMMINUTED INTRATROCHANTERIC FRACTURE OF THE LEFT HIP with varus angulation. Fracture extends sub trochanteric with lateral view demonstrating minimal anterior displacement and slight posterior angulation as well. Osteopenia otherwise. TECHNICAL DOCUMENTATION: JOB ID: [id number] Reading location - IP/workstation name: [email or web address]
[2019-04-11 14:38] LABS: BASOPHILS % (AUTO) 0.6 % (0-2); EOSINOPHILS % (AUTO) 0.5 % (0-6); HEMATOCRIT 17.5 % (36.0-47.0); LYMPHOCYTES % (AUTO) 11.1 % (13-45); MEAN CORPUSCULAR HEMOGLOBIN 27.7 pg (27.0-33.4); MEAN CORPUSCULAR HGB CONC 31.6 g/dL (32.0-36.0); MEAN CORPUSCULAR VOLUME 88 fl (80-97); PLATELET COUNT 182 10^3/uL (150-450); RED CELL DISTRIBUTION WIDTH 18.9 % (11.5-14.0); SEGMENTED NEUTROPHILS % (AUTO) 82.8 % (42-78); TOTAL CELLS COUNTED % (AUTO) 100 %; WHITE BLOOD COUNT 8.9 10^3/uL (4.0-10.5)
[2019-04-11 14:39] LABS: ABSOLUTE BASOPHILS # (AUTO) 0.1 10^3/uL (0.0-0.2); ABSOLUTE MONOCYTES (AUTO) 0.4 10^3/uL (0.1-1.4); ABSOLUTE NEUT (AUTO) 7.3 10^3/uL (1.7-8.2); HEMOGLOBIN 5.5 g/dL (12.0-15.5)
[2019-04-11 15:48] LABS: PROTHROMBIN TIME 14.8 SEC (11.4-15.4)
[2019-04-11] MEDS ORDERED: FENTANYL CITRATE INJ/PF 100 MCG/2 ML AMPUL IV ONE (16:21)
[2019-04-11 17:03] VITALS: BP 110/43
--- NOTE | 2019-04-11 23:50 | EKG REPORT ---
SEVERITY:- ABNORMAL ECG - SINUS RHYTHM ABNORMAL T, CONSIDER ISCHEMIA, ANT-LAT LEADS : Confirmed by: Kizzy De La Torre MD 11-Apr-2019 23:50:00
== END 2019-04-11 17:06 | disposition short-term general hospital (02) ==
LOC: ER 12:48
DX: K92.2 Gastrointestinal hemorrhage, unspecified (principal); D62 Acute posthemorrhagic anemia; S72.142A Displaced intertrochanteric fracture of left femur, initial encounter for closed fracture; S09.90XA Unspecified injury of head, initial encounter; W18.39XA Other fall on same level, initial encounter; W22.09XA Striking against other stationary object, initial encounter; Y93.89 Activity, other specified; Y92.009 Unspecified place in unspecified non-institutional (private) residence as the place of occurrence of the external cause; I95.9 Hypotension, unspecified; R55 Syncope and collapse; I25.10 Atherosclerotic heart disease of native coronary artery without angina pectoris; I10 Essential (primary) hypertension; J44.9 Chronic obstructive pulmonary disease, unspecified; Z95.1 Presence of aortocoronary bypass graft; Z88.8 Allergy status to other drugs, medicaments and biological substances; Z88.0 Allergy status to penicillin
CPT/HCPCS: 93005; 96376; 99291; 96361; 96375; 96365; 96366; 86900; 86901; 36415; 36430; 86850; 85025; 85610; 80053; 84484; 86920; 71045; 73502; 70450; 72125; 93010; P9016; J3010; J2270; C9113; J2405; J7040; S0164

== ENCOUNTER 2019-06-28 08:19 | Emergency (ER) | payer MEDICARE, OTHER ==
--- NOTE | 2019-06-28 08:47 | ER Document Report ---
ED General - General Chief Complaint: Low Blood Pressure Stated Complaint: BLOOD PRESSURE ISSUES Time Seen by Provider: 06/28/19 08:37 Notes: 78-year-old female with multiple chronic medical problems including reported hypotension presents with generalized weakness dizziness and near syncope this morning. Did not follow this consciousness. No chest pain or shortness of breath. No numbness tingling or unilateral neurologic symptoms. Similar prior episodes. Apparently hypotensive for EMS but normotensive here after fluids. TRAVEL OUTSIDE OF THE [place] IN LAST 30 DAYS: No - Related Data Allergies/Adverse Reactions: pseudoephedrine HCl [From Cap That] Allergy (Mild, Verified 10/31/18 19:12) nausea and vomiting amoxicillin Allergy (Verified 10/31/18 19:12) Past Medical History - Social History Smoking Status: Unknown if Ever Smoked Family History: Reviewed & Not Pertinent, CAD - Past Medical History Cardiac Medical History: Reports: Hx Coronary Artery Disease, Hx Hypercholesterolemia, Hx Hypertension, Hx Peripheral Vascular Disease Denies: Hx Congestive Heart Failure, Hx DVT, Hx Heart Attack, Hx Pulmonary Embolism Pulmonary Medical History: Reports: Hx COPD Denies: Hx Asthma, Hx Sleep Apnea Neurological Medical History: Denies: Hx Cerebrovascular Accident, Hx Seizures Endocrine Medical History: Denies: Hx Diabetes Mellitus Type 1, Hx Diabetes Me llitus Type 2, Hx Hyperthyroidism, Hx Hypothyroidism Renal/ Medical History: Denies: Hx Peritoneal Dialysis GI Medical History: Denies: Hx Cirrhosis, Hx Gastroesophageal Reflux Disease, Hx Hepatitis, Hx Hiatal Hernia, Hx Ulcer Musculoskeletal Medical History: Reports Hx Arthritis Psychiatric Medical History: Denies: Hx Depression Infectious Medical History: Denies: Hx C-Diff, Hx Hepatitis, Hx MRSA Past Surgical History: Reports: Hx Cardiac Catheterization, Hx Carotid Endarterectomy - Right carotid endarterectomy 2006, Hx Coronary Artery Bypass Graft - Four-vessel bypass 2005, Hx Coronary Stent - Multiple; last implant May 01, 2016, Hx Hysterectomy, Hx Open Heart Surgery - quad bypass 10/2006, Hx Orthopedic Surgery. Denies: Hx Mastectomy, Hx Pacemaker - Immunizations Hx Diphtheria, Pertussis, Tetanus Vaccination: Yes Hx Pneumococcal Vaccination: 08/31/12 Review of Systems - Review of Systems Notes: REVIEW OF SYSTEMS GEN: This near syncope ENT: Denies sore throat, nasal discharge, ear pain EYES: Denies blurry vision, eye pain, discharge CV: Denies chest pain, palpitations, edema RESP: Denies cough, shortness of breath, wheezing GI: Denies abdominal pain, nausea, vomiting, diarrhea MSK: Denies joint pain/swelling, edema, SKIN: Denies rash, skin lesions LYMPH: Denies swollen glands/lymph nodes NEURO: Denies headache, focal weakness or numbness, dizziness PSYCH: Denies depression, suicidal or homicidal ideation PHYSICAL EXAMINATION General: No acute distress, well-nourished Head: Atraumatic, normocephalic ENT: Mouth normal, oropharynx moist, no exudates or tonsillar enlargement Eyes: Conjunctiva normal, pupils equal, lids normal Neck: No JVD, supple, no guarding CVS: Normal rate, regular rhythm, no murmurs Resp: No resp distress, equal and normal breath sounds bilaterally GI: Nondistended, soft, no tenderness to palpation, no rebound or guarding Ext: No deformities, no edema, normal range of motion in upper and lower ext Back: No CVA or midline TTP Skin: No rash, warm Lymphatic: No lymphadeopathy noted Neuro: Awake, alert. Face symmetric. GCS 15. No pronator drift. Physical Exam - Vital signs Vitals: Resp 16 06/28/19 08:31 Course - Re-evaluation Re-evalutation: 06/28/19 08:47 Has weakness and near syncope similar to prior with reported hypotension also similar to prior and better with fluids. EKG largely unchanged except for mild ectopy. Will check labs and continue to hydrate. Suspect dehydration and chronic hypotension. 06/28/19 11:51 Patient's labs show a new hemoglobin of 5.6. She is a history of a GI bleed. On further questioning of her daughter it seems that she is been having dark stool. Rectal exam showed fly melena. She seemed medically stable. Ordered type and cross for 1 unit to start. Consented her and her family member. GI not available here. Discussed with Kiran Crane, Dr. Ramos who accepted under Dr. Pond for transfer to the hospitalist service and consult GI. Patient was last evaluated by me at 11:50 AM and is stable for transfer 06/28/19 11:55 Patient has a history of duodenal ulcer this is per Dr. Bolivar at [facility]. Because of this we elected to start a Protonix bolus and drip. She was given blood. She remained stable. - Vital Signs Vital signs: Temp Pulse Resp BP Pulse Ox 99.2 F 87 16 144/56 H 100 06/28/19 11:40 06/28/19 11:40 06/28/19 11:40 06/28/19 11:40 06/28/19 11:40 - Laboratory Result Diagrams: 06/28/19 07:45 06/28/19 07:45 Laboratory results interpreted by me: 06/28/19 06/28/19 06/28/19 07:45 07:45 09:35 RBC 1.82 L Hgb 5.6 L Hct 17.1 L RDW 20.0 H BUN 27 H Crossmatch See Detail - Diagnostic Test Radiology reviewed: Image reviewed, Reports reviewed - EKG Interpretation by Me EKG shows normal: Sinus rhythm Rate: Normal Rhythm: NSR Discharge - Discharge Clinical Impression: Symptomatic anemia Condition: Fair Disposition: [facility]
[2019-06-28 09:02] LABS: ABSOLUTE BASOPHILS # (AUTO) 0.1 10^3/uL (0.0-0.2); ABSOLUTE EOSINOPHILS # (AUTO) 0.1 10^3/uL (0.0-0.6); ABSOLUTE MONOCYTES (AUTO) 0.5 10^3/uL (0.1-1.4); ABSOLUTE NEUT (AUTO) 4.1 10^3/uL (1.7-8.2); EOSINOPHILS % (AUTO) 2.1 % (0-6); HEMATOCRIT 17.1 % (36.0-47.0); LYMPHOCYTES % (AUTO) 29.2 % (13-45); MEAN CORPUSCULAR HEMOGLOBIN 30.8 pg (27.0-33.4); MEAN CORPUSCULAR HGB CONC 32.7 g/dL (32.0-36.0); MEAN CORPUSCULAR VOLUME 94 fl (80-97); MONOCYTES % (AUTO) 7.2 % (3-13); PLATELET COUNT 173 10^3/uL (150-450); RED BLOOD COUNT 1.82 10^6/uL (3.72-5.28); SEGMENTED NEUTROPHILS % (AUTO) 60.5 % (42-78); TOTAL CELLS COUNTED % (AUTO) 100 %; WHITE BLOOD COUNT 6.8 10^3/uL (4.0-10.5)
[2019-06-28 09:04] LABS: HEMOGLOBIN 5.6 g/dL (12.0-15.5)
[2019-06-28] MEDS ORDERED: NORMAL SALINE 250 ML IV PRN (09:05)
[2019-06-28 09:06] LABS: ANION GAP 6 (5-19); BLOOD UREA NITROGEN 27 mg/dL (7-20); CALCIUM 8.8 mg/dL (8.4-10.2); CARBON DIOXIDE 29 mmol/L (22-30); CHLORIDE 103 mmol/L (98-107); GLUCOSE 101 mg/dL (75-110)
[2019-06-28] MEDS ORDERED: PANTOPRAZOLE SODIUM 40 MG VIAL IV PRN (11:52)
[2019-06-28] MEDS ORDERED: PANTOPRAZOLE SODIUM 40 MG VIAL IV ONE (11:54)
[2019-06-28 12:27] VITALS: BP 134/55
--- NOTE | 2019-06-28 14:50 | EKG REPORT ---
SEVERITY:- ABNORMAL ECG - SINUS RHYTHM MULTIPLE VENTRICULAR PREMATURE COMPLEXES NONSPECIFIC T ABNORMALITIES, ANT-LAT LEADS : Confirmed by: Kizzy De La Torre MD 28-Jun-2019 14:48:41
== END 2019-06-28 12:25 | disposition short-term general hospital (02) ==
LOC: ER 08:19
DX: D64.89 Other specified anemias (principal); Z95.1 Presence of aortocoronary bypass graft; Z88.0 Allergy status to penicillin
CPT/HCPCS: 99285; 86900; 86901; 36415; 36430; 86850; 85025; 80048; 86920; 93005; 93010; P9016

== ENCOUNTER 2019-09-17 14:29 | Emergency (ER) | payer MEDICARE, OTHER ==
--- NOTE | 2019-09-17 14:58 | ER Document Report ---
ED Medical Screen (RME) - General Chief Complaint: Bloody Stools Stated Complaint: BLOODY STOOLS Time Seen by Provider: 09/17/19 14:55 Mode of Arrival: Ambulatory Information source: Patient Notes: 79-year-old female presents to ED for complaint of dark red blood in her stools for the last 2 days. She states she has had 2 intestinal surgeries this year and she became concerned. She states her doctor was already closed today she went to the urgent care they stated they could not do the test that we needed that she would need to come to the emergency room. They told that they could do x-rays but they could not do her stool test. Patient is alert oriented respirations regular and unlabored speaking in full sentences I have greeted and performed a rapid initial assessment of this patient. A comprehensive ED assessment and evaluation of the patient, analysis of test results and completion of medical decision making process will be conducted by an additional ED providers. TRAVEL OUTSIDE OF THE [place] IN LAST 30 DAYS: No - Related Data Allergies/Adverse Reactions: pseudoephedrine HCl [From Sudafed] Allergy (Mild, Verified 10/31/18 19:12) nausea and vomiting amoxicillin Allergy (Verified 10/31/18 19:12) Past Medical History - Past Medical History Cardiac Medical History: Reports: Hx Coronary Artery Disease, Hx Hypercholesterolemia, Hx Hypertension, Hx Peripheral Vascular Disease Denies: Hx Congestive Heart Failure, Hx DVT, Hx Heart Attack, Hx Pulmonary Embolism Pulmonary Medical History: Reports: Hx COPD Denies: Hx Asthma, Hx Sleep Apnea Neurological Medical History: Denies: Hx Cerebrovascular Accident, Hx Seizures Endocrine Medical History: Denies: Hx Diabetes Mellitus Type 1, Hx Diabetes Mellitus Type 2, Hx Hyperthyroidism, Hx Hypothyroidism Renal/ Medical History: Denies: Hx Peritoneal Dialysis GI Medical History: Denies: Hx Cirrhosis, Hx Gastroesophageal Reflux Disease, Hx Hepatitis, Hx Hiatal Hernia, Hx Ulcer Musculoskeltal Medical History: Reports Hx Arthritis Psychiatric Medical History: Denies: Hx Depression Infectious Medical History: Denies: Hx C-Diff, Hx Hepatitis, Hx MRSA Past Surgical History: Reports: Hx Cardiac Catheterization, Hx Carotid Endarterectomy - Right carotid endarterectomy 2006, Hx Coronary Artery Bypass Graft - Four-vessel bypass 2005, Hx Coronary Stent - Multiple; last implant May 01, 2016, Hx Hysterectomy, Hx Open Heart Surgery - quad bypass 10/2006, Hx Or thopedic Surgery. Denies: Hx Mastectomy, Hx Pacemaker - Immunizations Hx Diphtheria, Pertussis, Tetanus Vaccination: Yes
[2019-09-17 15:32] LABS: ABSOLUTE EOSINOPHILS # (AUTO) 0.1 10^3/uL (0.0-0.6); ABSOLUTE MONOCYTES (AUTO) 0.3 10^3/uL (0.1-1.4); ABSOLUTE NEUT (AUTO) 1.9 10^3/uL (1.7-8.2); BASOPHILS % (AUTO) 1.4 % (0-2); EOSINOPHILS % (AUTO) 2.1 % (0-6); HEMOGLOBIN 12.9 g/dL (12.0-15.5); LYMPHOCYTES % (AUTO) 30.4 % (13-45); MEAN CORPUSCULAR HEMOGLOBIN 30.6 pg (27.0-33.4); MEAN CORPUSCULAR HGB CONC 33.2 g/dL (32.0-36.0); MEAN CORPUSCULAR VOLUME 92 fl (80-97); MONOCYTES % (AUTO) 9.4 % (3-13); PLATELET COUNT 128 10^3/uL (150-450); RED BLOOD COUNT 4.23 10^6/uL (3.72-5.28); RED CELL DISTRIBUTION WIDTH 14.7 % (11.5-14.0); SEGMENTED NEUTROPHILS % (AUTO) 56.7 % (42-78); TOTAL CELLS COUNTED % (AUTO) 100 %; WHITE BLOOD COUNT 3.4 10^3/uL (4.0-10.5)
[2019-09-17 15:51] LABS: ALBUMIN 4.1 g/dL (3.5-5.0); ALKALINE PHOSPHATASE 68 U/L (38-126); ANION GAP 10 (5-19); ASPARTATE AMINO TRANSFERASE 26 U/L (14-36); BILIRUBIN,DIRECT 0.1 mg/dL (0.0-0.4); BILIRUBIN,TOTAL 0.5 mg/dL (0.2-1.3); BLOOD UREA NITROGEN 16 mg/dL (7-20); CALCIUM 9.4 mg/dL (8.4-10.2); CARBON DIOXIDE 30 mmol/L (22-30); CHLORIDE 100 mmol/L (98-107); GLUCOSE 79 mg/dL (75-110); POTASSIUM 3.7 mmol/L (3.6-5.0); TOTAL PROTEIN 6.9 g/dL (6.3-8.2)
[2019-09-17 16:46] LABS: APPEARANCE,URINE TURBID; BILIRUBIN,URINE NEGATIVE (NEGATIVE); CALCIUM OXALATE CRYSTALS,URINE TOO NUMEROUS TO CNT /HPF; COLOR,URINE YELLOW; GLUCOSE, URINE NEGATIVE (NEGATIVE); KETONES,URINE NEGATIVE (NEGATIVE); PROTEIN,URINE NEGATIVE (NEGATIVE); URINE SPECIFIC GRAVITY 1.027; UROBILINOGEN,URINE NEGATIVE mg/dL (<2.0)
--- NOTE | 2019-09-17 19:02 | ER Document Report ---
ED GI Bleed / Rectal Pain - General Chief Complaint: Bloody Stools Stated Complaint: BLOODY STOOLS Time Seen by Provider: 09/17/19 14:55 Primary Care Provider: DIEGO ALMONTE MD [ACTIVE STAFF] - 09/20/19 KANU MÁRQUEZ PA-C [Primary Care Provider] - 09/20/19 Mode of Arrival: Ambulatory Information source: Patient Notes: Patient presents complaining of having a red-brown stool bowel movement each day for the past 3 days. Patient reports nausea. Patient denies any fever, vomiting, chest pain, or shortness of breath. Patient does complain of some lower abdominal tenderness and feeling weak. Patient states she does have a history of previous GI bleed in March and May of this year. TRAVEL OUTSIDE OF THE [place] IN LAST 30 DAYS: No - HPI Patient complains to provider of: Hemorrhoids, Other - Dark red-brown stool. No: Rectal pain, Vomiting blood Onset: Other - 2 days Timing/Duration: Persistent Quality of pain: Achy Pain Level: 3 Rectal bleeding: Blood mixed w/ stool Exacerbated by: Denies Relieved by: Denies Similar symptoms previously: Yes Recently seen / treated by doctor: No - Related Data Allergies/Adverse Reactions: pseudoephedrine HCl [From Sudafed] Allergy (Mild, Verified 09/17/19 15:03) nausea and vomiting amoxicillin Allergy (Verified 09/17/19 15:03) Past Medical History - General Information source: Patient - Social History Smoking Status: Never Smoker Frequency of alcohol use: None Drug Abuse: None Lives with: Friend Family History: Reviewed & Not Pertinent, CAD Patient has suicidal ideation: No Patient has homicidal ideation: No - Past Medical History Cardiac Medical History: Reports: Hx Coronary Artery Disease, Hx Hypercholesterolemia, Hx Hypertension, Hx Peripheral Vascular Disease, Other - AAA Pulmonary Medical History: Reports: Hx COPD Denies: Hx Asthma, Hx Sleep Apnea Neurological Medical History: Denies: Hx Cerebrovascular Accident, Hx Seizures Renal/ Medical History: Denies: Hx Peritoneal Dialysis GI Medical History: Reports: Other - Duodenal ulcer, GI bleed Musculoskeletal Medical History: Reports Hx Arthritis Psychiatric Medical History: Denies: Hx Depression Past Surgical History: Reports: Hx Cardiac Catheterization, Hx Carotid Endarterectomy - Right carotid endarterectomy 2006, Hx Coronary Artery Bypass Graft - Four-vessel bypass 2005, Hx Coronary Stent - Multiple; last implant May 01, 2016, Hx Hysterectomy, Hx Open Heart Surgery - quad bypass 10/2006, Hx Orthopedic Surgery - Immunizations Hx Diphtheria, Pertussis, Tetanus Vaccination: Yes Hx Pneumococcal Vaccination: 08/31/12 Review of Systems - Review of Systems Constitutional: Weakness. denies: Fever EENT: No symptoms reported Cardiovascular: No symptoms reported. denies: Chest pain, Dizziness, Lightheaded Respiratory: No symptoms reported. denies: Cough, Short of breath Gastrointestinal: Abdominal pain, Nausea. denies: Vomiting Genitourinary: No symptoms reported. denies: Dysuria Female Genitourinary: No symptoms reported Musculoskeletal: No symptoms reported. denies: Back pain Skin: No symptoms reported Hematologic/Lymphatic: No symptoms reported Neurological/Psychological: No symptoms reported Physical Exam - Vital signs Vitals: Temp Pulse Resp BP Pulse Ox 99.1 F 36 L 20 133/50 H 86 L 09/17/19 14:55 09/17/19 14:55 09/17/19 14:55 09/17/19 14:55 09/17/19 14:55 Interpretation: No: Hypoxic, Tachypneic - General General appearance: Appears well, Alert In distress: None - HEENT Head: Normocephalic Eyes: Normal Conjunctiva: Normal Nasal: Normal Mouth/Lips: Normal Neck: Normal, Supple. No: Lymphadenopathy - Respiratory Respiratory status: No respiratory distress Chest status: Nontender Breath sounds: Normal. No: Rales, Rhonchi, Stridor, Wheezing Chest palpation: Normal - Cardiovascular Rhythm: Regular Heart sounds: S1 appreciated, S2 appreciated Murmur: No - Abdominal Inspection: Normal Distension: No distension Bowel sounds: Normal Tenderness: Tender - Lower abdominal tenderness. No: Guarding Organomegaly: No organomegaly - Rectal Stool: See lab result Hemorrhoids: External - Back Back: Normal, Nontender. No: CVA tenderness - Extremities General upper extremity: Normal inspection, Normal ROM General lower extremity: Normal inspection, Normal ROM - Neurological Neuro grossly intact: Yes Cognition: Normal Alyce Coma Scale Eye Opening: Spontaneous Alyce Coma Scale Verbal: Oriented Alyce Coma Scale Motor: Obeys Commands Alyce Coma Scale Total: 15 - Psychological Associated symptoms: Normal affect, Normal mood - Skin Skin Temperature: Warm Skin Moisture: Dry Skin Color: Normal Course - Re-evaluation Re-evalutation: 09/17/19 20:[address] Oakes who advises CT imaging to rule out diverticulitis. 09/17/19 22:38 CT scan reviewed, patient with finding of colitis at this time. Patient with stable vital signs and no leukocytosis. Patient was stable H&H. Patient reports only one red-brown bowel movement daily for the past 3 days. Patient's last bowel movement was early this morning and she has not had any additional bowel movements today. Consulted again with Dr. Oakes and reviewed patient's diagnostic evaluation. Advises treating patient's colitis with Flagyl and Levaquin at this time and having her follow-up with her doctor on Friday for recheck. No additional testing advised at this time. - Vital Signs Vital signs: Temp Pulse Resp BP Pulse Ox 99.1 F 36 L 15 161/62 H 93 09/17/19 14:55 09/17/19 14:55 09/17/19 23:00 09/17/19 22:01 09/17/19 23:00 - Laboratory Result Diagrams: 09/17/19 15:16 09/17/19 15:16 Laboratory results interpreted by me: 09/17/19 09/17/19 09/17/19 15:16 15:16 15:16 WBC 3.4 L RDW 14.7 H Plt Count 128 L Est GFR (MDRD) Non-Af 58 L Leukocyte Esterase Rfl TRACE H Urine Ascorbic Acid 40 H 09/17/19 22:37 Labs- Entire Visit 09/17/19 09/17/19 09/17/19 15:16 15:16 15:16 WBC 3.4 L RBC 4.23 Hgb 12.9 Hct 39.0 MCV 92 MCH 30.6 MCHC 33.2 RDW 14.7 H Plt Count 128 L Lymph % (Auto) 30.4 [place] % (Auto) 9.4 Eos % (Auto) 2.1 Baso % (Auto) 1.4 Absolute Neuts (auto) 1.9 Absolute Lymphs (auto) 1.0 Absolute Monos (auto) 0.3 Absolute Eos (auto) 0.1 Absolute Basos (auto) 0.0 Seg Neutrophils % 56.7 PT INR APTT Sodium 139.5 Potassium 3.7 Chloride 100 Carbon Dioxide 30 Anion Gap 10 BUN 16 Creatinine 0.94 Est GFR ( Amer) > 60 Est GFR (MDRD) Non-Af 58 L Glucose 79 Calcium 9.4 Total Bilirubin 0.5 Direct Bilirubin 0.1 Neonat Total Bilirubin Not Reportable Neonat Direct Bilirubin Not Reportable Neonat Indirect Bili Not Reportable AST 26 ALT 16 Alkaline Phosphatase 68 Troponin I Total Protein 6.9 Albumin 4.1 Lipase Urine Color Urine Appearance Urine pH Ur Specific [place] Urine Protein Urine Glucose (UA) Urine Ketones Urine Blood Urine Nitrite (Reflex) Urine Bilirubin Urine Urobilinogen Leukocyte Esterase Rfl Urine RBC (Auto) U Hyaline Cast (Auto) Urine WBC (Reflex) Squamous Epi Cells Auto Calcium Oxalate Cr Auto Urine Mucus (Auto) Urine Ascorbic Acid POC Stool Occult Blood Blood Type A POSITIVE Antibody Screen NEGATIVE 09/17/19 09/17/19 09/17/19 15:16 15:16 15:16 WBC RBC Hgb Hct MCV MCH MCHC RDW Plt Count Lymph % (Auto) [place] % (Auto) Eos % (Auto) Baso % (Auto) Absolute Neuts (auto) Absolute Lymphs (auto) Absolute Monos (auto) Absolute Eos (auto) Absolute Basos (auto) Seg Neutrophils % PT 14.1 INR 1.09 APTT 32.0 Sodium Potassium Chloride Carbon Dioxide Anion Gap BUN Creatinine Est GFR ( Amer) Est GFR (MDRD) Non-Af Glucose Calcium Total Bilirubin Direct Bilirubin Neonat Total Bilirubin Neonat Direct Bilirubin Neonat Indirect Bili AST ALT Alkaline Phosphatase Troponin I Total Protein Albumin Lipase 120.2 Urine Color YELLOW Urine Appearance TURBID Urine pH 5.0 Ur Specific [place] 1.027 Urine Protein NEGATIVE Urine Glucose (UA) NEGATIVE Urine Ketones NEGATIVE Urine Blood NEGATIVE Urine Nitrite (Reflex) NEGATIVE Urine Bilirubin NEGATIVE Urine Urobilinogen NEGATIVE Leukocyte Esterase Rfl TRACE H Urine RBC (Auto) 4 U Hyaline Cast (Auto) 7 Urine WBC (Reflex) 7 Squamous Epi Cells Auto 4 Calcium Oxalate Cr Auto TOO NUMEROUS TO CNT Urine Mucus (Auto) OCC Urine Ascorbic Acid 40 H POC Stool Occult Blood Blood Type Antibody Screen 09/17/19 09/17/19 15:16 19:54 WBC RBC Hgb Hct MCV MCH MCHC RDW Plt Count Lymph % (Auto) [place] % (Auto) Eos % (Auto) Baso % (Auto) Absolute Neuts (auto) Absolute Lymphs (auto) Absolute Monos (auto) Absolute Eos (auto) Absolute Basos (auto) Seg Neutrophils % PT INR APTT Sodium Potassium Chloride Carbon Dioxide Anion Gap BUN Creatinine Est GFR ( Amer) Est GFR (MDRD) Non-Af Glucose Calcium Total Bilirubin Direct Bilirubin Neonat Total Bilirubin Neonat Direct Bilirubin Neonat Indirect Bili AST ALT Alkaline Phosphatase Troponin I < 0.012 Total Protein Albumin Lipase Urine Color Urine Appearance Urine pH Ur Specific [place] Urine Protein Urine Glucose (UA) Urine Ketones Urine Blood Urine Nitrite (Reflex) Urine Bilirubin Urine Urobilinogen Leukocyte Esterase Rfl Urine RBC (Auto) U Hyaline Cast (Auto) Urine WBC (Reflex) Squamous Epi Cells Auto Calcium Oxalate Cr Auto Urine Mucus (Auto) Urine Ascorbic Acid POC Stool Occult Blood POSITIVE Blood Type Antibody Screen - Diagnostic Test Radiology reviewed: Reports reviewed - EKG Interpretation by Me EKG shows normal: Sinus rhythm Rhythm: NSR Additional EKG results interpreted by me: 09/17/19 22:[address] elevation, no T wave inversion. QTc 410 Discharge - Discharge Clinical Impression: Colitis, Blood in stool Abdominal pain Qualifiers: Abdominal location: unspecified location Qualified Code(s): R10.9 - Unspecified abdominal pain Condition: Stable Disposition: HOME, SELF-CARE Instructions: Abdominal Pain ([facility]), Colitis, Nonspecific ([facility]), Metronidazole ([facility]) Additional Instructions: Return immediately for any new or worsening symptoms: Fever, increased pain, persistent blood in stool, or any new or concerning symptoms Followup with your primary care provider, call Friday to make a followup appointment Follow-up with your irrigation foreman, call Friday for an appointment Prescriptions: Metronidazole [Flagyl 500 mg Tablet] 500 mg PO TID #21 tablet Levofloxacin [Levaquin 750 mg Tablet] 750 mg PO DAILY #6 tablet Referrals: KANU MÁRQUEZ PA-C [Primary Care Provider] - 09/20/19 DIEGO ALMONTE MD [ACTIVE STAFF] - 09/20/19
[2019-09-17 19:21] LABS: INTERNATIONAL RATION (INR) 1.09; PROTHROMBIN TIME 14.1 SEC (11.4-15.4)
--- NOTE | 2019-09-17 19:36 | RADIOLOGY REPORT (SQ) ---
EXAM DESCRIPTION: ACUTE ABDOMEN SERIES COMPLETED DATE/TIME: 09/17/2019 7:20 pm REASON FOR STUDY: weak, lower abd pain COMPARISON: 04/11/2019 NUMBER OF VIEWS: Three views. TECHNIQUE: Frontal chest, supine abdomen and upright/decubitus abdomen radiographic images acquired. LIMITATIONS: None. FINDINGS: CHEST: Lungs clear of infiltrates. Stable midline surgical changes. FREE AIR: None. No abnormal gas collections. BOWEL GAS PATTERN: Nonobstructive pattern. No dilated loops or air fluid levels. CALCIFICATIONS: A curvilinear area of calcific density seen in the midline may represent either a tor tuous abdominal aorta versus mural calcifications within an abdominal aortic aneurysm. HARDWARE: Upper abdominal vascular stent. Few scattered surgical clips. Status post ORIF of the lef t femoral neck. SOFT TISSUES: No gross mass or suggestion of organomegaly. BONES: No acute fracture. Left sacroiliac sclerosis may represent sequela of remote trauma versus ch ronic sacroiliitis. . OTHER: No other significant finding. IMPRESSION: Nonspecific, nonobstructed bowel gas pattern. Chronic and incidental findings as detail ed above. TECHNICAL DOCUMENTATION: JOB ID: [id number]- All Rights Reserved Reading location - IP/workstation name: [email or web address]
[2019-09-17] MEDS ORDERED: PANTOPRAZOLE SODIUM 40 MG VIAL IV ONE (20:01)
[2019-09-17] MEDS ORDERED: PANTOPRAZOLE SODIUM 40 MG VIAL IV PRN (20:01)
--- NOTE | 2019-09-17 21:49 | RADIOLOGY REPORT (SQ) ---
CT ABDOMEN PELVIS WITH IV CONTRAST EXAM DATE: 09/17/2019 8:31 PM CDT HISTORY: Abdominal pain. COMPARISON: 12/23/2018 TECHNIQUE: CT scan of the abdomen and pelvis was performed with IV contrast. This exam was performed according to our departmental dose-optimization program, which includes automated exposure control, adjustment of the mA and/or kV according to patient size and/or use of iterative reconstruction technique. FINDINGS: Scattered atelectasis at the lung bases without pleural or pericardial effusions. Liver, spleen, pancreas, gallbladder, adrenal glands, and kidneys are unremarkable. No hydronephrosis or urinary stones are seen. There has been a prior hysterectomy. Mild wall thickening of the ascending colon. There are scattered colonic diverticula without surrounding inflammatory changes. No small bowel obstruction. There has been a prior appendectomy. No intraperitoneal free fluid or free air is seen. The aorta is diffusely atherosclerotic with a 4.4 cm infrarenal abdominal aortic aneurysm containing peripheral intraluminal thrombus, unchanged from prior study. No evidence of extravasation. No aortic dissection is seen. A stent is seen in the celiac trunk. Prior fixation of the proximal left femur is partially visualized. Chronic compression deformity of L1. IMPRESSION: 1. Mild wall thickening of the ascending colon which may represent colitis. 2. Stable 4.4 cm abdominal aortic aneurysm. Recommend follow-up every 12 months and vascular consultation. Reference: J Am Jacki Radiol 2013;10:789-794.
[2019-09-17 23:05] VITALS: BP 161/62
--- NOTE | 2019-09-19 00:30 | EKG REPORT ---
SEVERITY:- BORDERLINE ECG - SINUS RHYTHM BORDERLINE T WAVE ABNORMALITIES : Confirmed by: Cinda Aguilar 19-Sep-2019 00:29:31
== END 2019-09-17 23:05 | disposition home or self-care (01) ==
LOC: ER 14:29
DX: K52.9 Noninfective gastroenteritis and colitis, unspecified (principal); K64.4 Residual hemorrhoidal skin tags; K92.1 Melena; R10.30 Lower abdominal pain, unspecified; R53.1 Weakness; I25.10 Atherosclerotic heart disease of native coronary artery without angina pectoris; I10 Essential (primary) hypertension; Z88.8 Allergy status to other drugs, medicaments and biological substances; Z88.0 Allergy status to penicillin
CPT/HCPCS: 93005; 99284; 96365; 96366; 86900; 86901; 36415; 87086; 86850; 83690; 85025; 85610; 85730; 87088; 80053; 81001; 84484; 74022; 74177; 93010; C9113; S0164

== ENCOUNTER → 2019-10-26 | Outpatient (CLI) | payer MEDICARE, OTHER ==
[2019-10-26 10:29] LABS: ALBUMIN 4.1 g/dL (3.5-5.0); ALKALINE PHOSPHATASE 66 U/L (38-126); ASPARTATE AMINO TRANSFERASE 25 U/L (14-36); BILIRUBIN,DIRECT 0.1 mg/dL (0.0-0.4); BILIRUBIN,TOTAL 0.9 mg/dL (0.2-1.3); TOTAL PROTEIN 6.8 g/dL (6.3-8.2)
[2019-10-26 11:47] LABS: CHOLESTEROL 133.05 mg/dL (0-200); TRIGLYCERIDES 79 mg/dL (<150)
[2019-10-26 11:57] LABS: DIRECT LDL 58 mg/dL (<100)
== END ==
LOC: OD 09:03
PROVIDERS: ATTEND Internal Medicine Cardiovascular Disease
DX: E78.5 Hyperlipidemia, unspecified (principal)
CPT/HCPCS: 36415; 80061; 80076

== ENCOUNTER 2020-02-05 13:04 | Emergency (ER) | payer MEDICARE, OTHER ==
--- NOTE | 2020-02-05 13:15 | ER Document Report ---
ED Medical Screen (RME) - General Chief Complaint: Rectal Bleeding Stated Complaint: RECTAL BLEEDING/ABDOMINAL PAIN Time Seen by Provider: 02/05/20 13:11 Primary Care Provider: ANA LOZANO MD [Primary Care Provider] - Follow up as needed Notes: HPI: 79-year-old female who is on Plavix presenting for rectal bleeding over the last 1.5 weeks. Reports lower abdominal cramping and discomfort. States that she had hemorrhoids removed with her PCP over a month ago. States that she is also had GI bleed issues in the past. Reports her stool is darker but she noticed some bright red blood over the last 1.5 weeks that is progressively worsened. I have greeted and performed a rapid initial assessment of this patient. A comprehensive ED assessment and evaluation of the patient, analysis of test results and completion of the medical decision making process will be conducted by additional ED providers PHYSICAL EXAMINATION: GENERAL: Well-appearing, well-nourished and in no acute distress. HEAD: Atraumatic, normocephalic. EYES: sclera anicteric, conjunctiva are normal. ENT: Moist mucous membranes. NECK: Normal range of motion LUNGS: Normal work of breathing, clear to auscultation HEART: 2+ radial pulses bilaterally, regular rate and rhythm ABD: limited by positioning for exam in triage. Mild tenderness across the lower abdomen on palpation EXTREMITIES: no pitting or edema. No cyanosis. NEUROLOGICAL: No focal neurological deficits. Moves all extremities spontaneously and on command. PSYCH: Normal mood, normal affect. SKIN: Warm, Dry, normal turgor, no rashes or lesions noted. TRAVEL OUTSIDE OF THE [place] IN LAST 30 DAYS: No - Related Data Allergies/Adverse Reactions: pseudoephedrine HCl [From [employer]] Allergy (Mild, Verified 02/05/20 13:11) nausea and vomiting amoxicillin Allergy (Verified 02/05/20 13:11) Past Medical History - Past Medical History Cardiac Medical History: Reports: Hx Coronary Artery Disease, Hx Hypercholesterolemia, Hx Hypertension, Hx Peripheral Vascular Disease Denies: Hx Congestive Heart Failure, Hx DVT, Hx Heart Attack, Hx Pulmonary Embolism Pulmonary Medical History: Reports: Hx COPD Denies: Hx Asthma, Hx Sleep Apnea Neurological Medical History: Denies: Hx Cerebrovascular Accident, Hx Seizures Endocrine Medical History: Denies: Hx Diabetes Mellitus Type 1, Hx Diabetes Mellitus Type 2, Hx Hyperthyroidism, Hx Hypothyroidism Renal/ Medical History: Denies: Hx Peritoneal Dialysis GI Medical History: Denies: Hx Cirrhosis, Hx Gastroesophageal Reflux Disease, Hx Hepatitis, Hx Hiatal Hernia, Hx Ulcer Musculoskeltal Medical History: Reports Hx Arthritis Psychiatric Medical History: Denies: Hx Depression Infectious Medical History: Denies: Hx C-Diff, Hx Hepatitis, Hx MRSA Past Surgical History: Reports: Hx Cardiac Catheterization, Hx Carotid Endarterectomy - Right carotid endarterectomy 2006, Hx Coronary Artery Bypass Graft - Four-vessel bypass 2005, Hx Coronary Stent - Multiple; last implant May 01, 2016, Hx Hysterectomy, Hx Open Heart Surgery - quad bypass 10/2006, Hx Orthopedic Surgery. Denies: Hx Mastectomy, Hx Pacemaker - Immunizations Hx Diphtheria, Pertussis, Tetanus Vaccination: Yes Physical Exam - Vital signs Vitals: Temp Pulse Resp BP Pulse Ox 98.7 F 79 20 192/82 H 97 02/05/20 13:08 02/05/20 13:08 02/05/20 13:08 02/05/20 13:08 02/05/20 13:08 Course - Vital Signs Vital signs: Temp Pulse Resp BP Pulse Ox 98.7 F 79 20 192/82 H 97 02/05/20 13:08 02/05/20 13:08 02/05/20 13:08 02/05/20 13:08 02/05/20 13:08 Doctor's Discharge - Discharge Referrals: ANA LOZANO MD [Primary Care Provider] - Follow up as needed
[2020-02-05 13:51] LABS: ABSOLUTE LYMPHOCYTES (AUTO) 0.8 10^3/uL (0.5-4.7); ABSOLUTE MONOCYTES (AUTO) 0.5 10^3/uL (0.1-1.4); ABSOLUTE NEUT (AUTO) 3.6 10^3/uL (1.7-8.2); BASOPHILS % (AUTO) 0.9 % (0-2); EOSINOPHILS % (AUTO) 0.9 % (0-6); HEMATOCRIT 39.1 % (36.0-47.0); HEMOGLOBIN 13.6 g/dL (12.0-15.5); LYMPHOCYTES % (AUTO) 16.1 % (13-45); MEAN CORPUSCULAR HEMOGLOBIN 32.9 pg (27.0-33.4); MEAN CORPUSCULAR HGB CONC 34.6 g/dL (32.0-36.0); MEAN CORPUSCULAR VOLUME 95 fl (80-97); MONOCYTES % (AUTO) 9.7 % (3-13); PLATELET COUNT 154 10^3/uL (150-450); RED BLOOD COUNT 4.12 10^6/uL (3.72-5.28); RED CELL DISTRIBUTION WIDTH 12.5 % (11.5-14.0); SEGMENTED NEUTROPHILS % (AUTO) 72.4 % (42-78); TOTAL CELLS COUNTED % (AUTO) 100 %; WHITE BLOOD COUNT 4.9 10^3/uL (4.0-10.5)
[2020-02-05 13:53] LABS: INTERNATIONAL RATION (INR) 1.03; PROTHROMBIN TIME 13.5 SEC (11.4-15.4)
[2020-02-05 13:54] LABS: APPEARANCE,URINE CLEAR; BILIRUBIN,URINE NEGATIVE (NEGATIVE); COLOR,URINE STRAW; GLUCOSE, URINE NEGATIVE (NEGATIVE); KETONES,URINE NEGATIVE (NEGATIVE); LEUKOCYTE ESTERASE,URINE NEGATIVE (NEGATIVE); NITRITE,URINE NEGATIVE (NEGATIVE); PROTEIN,URINE NEGATIVE (NEGATIVE); URINE SPECIFIC GRAVITY 1.004; UROBILINOGEN,URINE NEGATIVE mg/dL (<2.0)
[2020-02-05 14:06] LABS: ALBUMIN 4.3 g/dL (3.5-5.0); ALKALINE PHOSPHATASE 73 U/L (38-126); ANION GAP 6 (5-19); ASPARTATE AMINO TRANSFERASE 28 U/L (14-36); BILIRUBIN,TOTAL 0.6 mg/dL (0.2-1.3); BLOOD UREA NITROGEN 18 mg/dL (7-20); CALCIUM 9.4 mg/dL (8.4-10.2); CARBON DIOXIDE 34 mmol/L (22-30); CHLORIDE 97 mmol/L (98-107); GLUCOSE 100 mg/dL (75-110); POTASSIUM 3.8 mmol/L (3.6-5.0); TOTAL PROTEIN 7.2 g/dL (6.3-8.2)
[2020-02-05] MEDS ORDERED: NORMAL SALINE 500 ML IV ONE (16:42)
--- NOTE | 2020-02-05 18:03 | RADIOLOGY REPORT (SQ) ---
EXAM DESCRIPTION: CTA ABDOMEN/PELVIS W WO COMPLETED DATE/TIME: 02/05/2020 4:19 pm REASON FOR STUDY: lower gi bleed COMPARISON: 09/17/2019 TECHNIQUE: CT scan of the abdomen and pelvis performed with intravenous contrast. Images reviewed wi th lung, soft tissue, and bone windows. Reconstructed coronal and sagittal MPR images reviewed. Delay ed images for evaluation of possible gastrointestinal hemorrhage. All images stored on PACS. All CT scanners at this facility use dose modulation, iterative reconstruction, and/or weight based d osing when appropriate to reduce radiation dose to as low as reasonably achievable (ALARA). [facility]: Dose Right [facility]: CareDose [facility]: Dose Right [facility]: Teradose 4D [facility]: JOOR CONTRAST TYPE AND DOSE: contrast/concentration: Isovue 350.00 mg/ml; Total Contrast Delivered: 80.0 ml; Total Saline Delivered: 90.0 ml RENAL FUNCTION: GFR > 60. RADIATION DOSE: CT Rad equipment meets quality standard of care and radiation dose reduction techniq ues were employed. CTDIvol: 5.7 - 18.9 mGy. DLP: 305 mGy-cm.. LIMITATIONS: None. FINDINGS: LOWER CHEST: No significant findings. No nodules or infiltrates. LIVER: Normal size. No masses. No dilated ducts. SPLEEN: Normal size. No focal lesions. PANCREAS: No masses. No significant calcifications. No adjacent inflammation or peripancreatic fluid collections. Pancreatic duct not dilated. GALLBLADDER: Gallbladder is contracted. No calcified gallstones or pericholecystic fluid. ADRENAL GLANDS: No significant masses or asymmetry. RIGHT KIDNEY AND URETER: Right renal cortical cysts. No solid masses. No significant calcification. No hydronephrosis or hydroureter. LEFT KIDNEY AND URETER: Left renal cortical cysts. No solid masses. No significant calcification. No hydronephrosis or hydroureter. AORTA AND VESSELS: There is an infrarenal abdominal aortic aneurysm measuring 4.4 cm, unchanged from prior examination. Calcified and noncalcified atherosclerotic plaque in the abdominal aorta, at the origins of the celiac and superior mesenteric arteries, and at the origins of the bilateral renal art eries. The inferior mesenteric artery opacifies normally with contrast. Bilateral common iliac jada meredith demonstrate coarse atherosclerotic plaque at the origins, with probable greater than 50% stenosi s proximally. Coarse atherosclerotic plaque throughout the external iliac arteries. No dissection o r significant plaque ulceration. No periaortic fluid. RETROPERITONEUM: No retroperitoneal adenopathy, hemorrhage or masses. BOWEL AND PERITONEAL CAVITY: There is sigmoid diverticulosis without evidence of diverticulitis. No bowel obstruction or bowel wall thickening. No significant inflammatory change. Colonic interpositi on is noted anterior to the liver. APPENDIX: Surgically absent. PELVIS: No mass. No free fluid. Normal bladder. ABDOMINAL WALL: No masses. No hernias. BONES: Chronic compression fracture superior endplate L1, stable. Partial visualization of darlin and p in fixation proximal left femur. Sclerosis at the left sacroiliac joint is stable. No suspicious john ne lesions. OTHER: No other significant finding. IMPRESSION: 1. No acute abnormality to explain the patient's symptoms. 2. Sigmoid diverticulosis without evidence of diverticulitis. 3. Stable infrarenal abdominal aortic aneurysm measuring maximum 4.4 cm. 4. Extensive atherosclerotic plaque. TECHNICAL DOCUMENTATION: JOB ID: [id number] Quality ID # [id number]: Final reports with documentation of one or more dose reduction techniques (e.g., Au tomated exposure control, adjustment of the mA and/or kV according to patient size, use of iterative reconstruction technique) 2010 [employer]- All Rights Reserved Reading location - IP/workstation name: [id number]
[2020-02-05 20:27] VITALS: BP 181/99
--- NOTE | 2020-02-06 14:42 | ER Document Report ---
Entered by MARLO KOEHLER SCRIBE 02/05/20 1630 Acting as scribe for:MANNY HITCHCOCK MD ED General - General Chief Complaint: Rectal Bleeding Stated Complaint: RECTAL BLEEDING/ABDOMINAL PAIN Time Seen by Provider: 02/05/20 13:11 Primary Care Provider: ANA LOZANO MD [ASSOCIATE] - Follow up as needed Information source: Patient Notes: This 79-year-old female patient presents to the emergency department today with complaints of blood in her stool for the last week and a half which has become heavier in the last 3 days. Patient states that she has had hemorrhoids "either frozen or cut" a few months ago by Dr. Cornell. Patient denies any pain. Patient states the last bloody bowel movement she has had was at 1030 this morning. Patient is not on any blood thinning medications. TRAVEL OUTSIDE OF THE [place] IN LAST 30 DAYS: No - Related Data Allergies/Adverse Reactions: pseudoephedrine HCl [From [employer]] Allergy (Mild, Verified 02/05/20 13:11) nausea and vomiting amoxicillin Allergy (Verified 02/05/20 13:11) Past Medical History - General Information source: Patient - Social History Smoking Status: Never Smoker Cigarette use (# per day): No Chew tobacco use (# tins/day): No Frequency of alcohol use: None Drug Abuse: None Lives with: Family Family History: Reviewed & Not Pertinent, CAD Patient has suicidal ideation: No Patient has homicidal ideation: No - Past Medical History Cardiac Medical History: Reports: Hx Coronary Artery Disease, Hx Hypercholesterolemia, Hx Hypertension, Hx Peripheral Vascular Disease Denies: Hx Congestive Heart Failure, Hx DVT, Hx Heart Attack, Hx Pulmonary Embolism Pulmonary Medical History: Reports: Hx COPD Denies: Hx Asthma, Hx Sleep Apnea Neurological Medical History: Denies: Hx Cerebrovascular Accident, Hx Seizures Endocrine Medical History: Denies: Hx Diabetes Mellitus Type 1, Hx Diabetes Mellitus Type 2, Hx Hyperthyroidism, Hx Hypothyroidism Renal/ Medical History: Denies: Hx Peritoneal Dialysis GI Medical History: Denies: Hx Cirrhosis, Hx Gastroesophageal Reflux Disease, Hx Hepatitis, Hx Hiatal Hernia, Hx Ulcer Musculoskeletal Medical History: Reports Hx Arthritis Psychiatric Medical History: Denies: Hx Depression Infectious Medical History: Denies: Hx C-Diff, Hx Hepatitis, Hx MRSA Past Surgical History: Reports: Hx Cardiac Catheterization, Hx Cardiac Surgery - aortic valve, Hx Carotid Endarterectomy - Right carotid endarterectomy 2006, Hx Coronary Artery Bypass Graft - Four-vessel bypass 2005, Hx Coronary Stent - Multiple; last implant May 01, 2016, Hx Hysterectomy, Hx Open Heart Surgery - quad bypass 10/2006, Hx Orthopedic Surgery. Denies: Hx Mastectomy, Hx Pacemaker - Immunizations Hx Diphtheria, Pertussis, Tetanus Vaccination: Yes Hx Pneumococcal Vaccination: 08/31/12 Review of Systems - Review of Systems Constitutional: No symptoms reported EENT: No symptoms reported Cardiovascular: No symptoms reported Respiratory: No symptoms reported Gastrointestinal: Blood streaked bowels. denies: Abdominal pain, Diarrhea, Nausea, Vomiting Genitourinary: No symptoms reported Female Genitourinary: No symptoms reported Musculoskeletal: No symptoms reported Skin: No symptoms reported Hematologic/Lymphatic: No symptoms reported Neurological/Psychological: No symptoms reported -: Yes All other systems reviewed and negative Physical Exam - Vital signs Vitals: Temp Pulse Resp BP Pulse Ox 98.7 F 79 20 192/82 H 97 02/05/20 13:08 02/05/20 13:08 02/05/20 13:08 02/05/20 13:08 02/05/20 13:08 - Notes Notes: Physical Exam: General: Alert, appears well. HEENT: Normocephalic. Atraumatic. PERRL. Extraocular movements intact. Oropharynx clear. Neck: Supple. Non-tender. Respiratory: No respiratory distress. Clear and equal breath sounds bilaterally. Cardiovascular: Regular rate and rhythm. Abdominal: Normal Inspection. Non-tender. No distension. Normal Bowel Sounds. Back: No gross abnormalities. Extremities: Moves all four extremities. Upper extremities: Normal inspection. Normal ROM. Lower extremities: Normal inspection. No edema. Normal ROM. Neurological: Normal cognition. AAOx4. Normal speech. Psychological: Normal affect. Normal Mood. Skin: Warm. Dry. Normal color. Course - Re-evaluation Re-evalutation: 02/05/20 19:46 Patient is hemodynamically stable not showing any signs of cardiovascular co mpromise at this time. Patient has not shown any evidence of rectal bleeding while in the department. Rectal exam shows external hemorrhoids present no active gross blood seen on digital insertion. Guaiac of the mucus does show guaiac positive consistent with red blood cells. Abdomen soft nontender not showing any acute abdominal surgical issues at this time. - Vital Signs Vital signs: Temp Pulse Resp BP Pulse Ox 98.7 F 79 27 H 164/82 H 97 02/05/20 13:08 02/05/20 13:08 02/05/20 18:00 02/05/20 18:00 02/05/20 18:00 - Laboratory Result Diagrams: 02/05/20 13:20 02/05/20 13:20 Laboratory results interpreted by me: 02/05/20 13:20 Chloride 97 L Carbon Dioxide 34 H 02/05/20 19:48 Vital signs stable no anemia present on laboratory survey. - Diagnostic Test Radiology reviewed: Image reviewed Radiology results interpreted by me: 02/05/20 19:48 CT angiogram of abdomen and pelvis did not disclose any acute bleed at this time. Patient does have diverticulosis without diverticulitis patient has a known infrarenal renal aneurysm abdominal aneurysm. Size 4.4 cm. No active bl eeding from site. Patient also has atherosclerotic arterial vessels and abdomen. Discharge - Discharge Clinical Impression: Hemorrhoids, external without complications, Acute lower GI bleeding Condition: Stable Disposition: HOME, SELF-CARE Additional Instructions: Hemorrhoids You have hemorrhoids. These are formed by enlargement of veins around the anus. The cause is increased pressure in the veins, from or straining at bowel movements. Hemorrhoids often cause itching and bleeding with bowel movements. When a hemorrhoid becomes clotted, severe pain and swelling result. Soothing creams and suppositories are often prescribed. Warm sitz-baths may also decrease pain, swelling, and itching. Eat a high-fiber diet. Stool so fteners such as Metamucil will help. Keep the area very clean. Medicated cleansing pads (such as Tucks) are useful after bowel movements. A hose-mounted shower unit (like a shower massager at low water pressure) can be used to clean around tender hemorrhoid tags. You should call the doctor or return if you develop fever, increasing pain, or an enlarging mass around the anus, or if you simply fail to improve with treatment. Continue your stool softeners and Metamucil as you are doing. We will add Anusol HC cream and [id number] preparation which does not require prescription. Follow directions as indicated.. Follow-up with your primary care physician. Referrals: ANA LOZANO MD [ASSOCIATE] - Follow up as needed I personally performed the services described in the documentation, reviewed and edited the documentation which was dictated to the scribe in my presence, and it accurately records my words and actions.
== END 2020-02-05 20:27 | disposition home or self-care (01) ==
LOC: ER 13:04
DX: K64.4 Residual hemorrhoidal skin tags (principal); K92.2 Gastrointestinal hemorrhage, unspecified; R10.9 Unspecified abdominal pain; Z88.1 Allergy status to other antibiotic agents; Z88.8 Allergy status to other drugs, medicaments and biological substances; I25.10 Atherosclerotic heart disease of native coronary artery without angina pectoris; I10 Essential (primary) hypertension; J44.9 Chronic obstructive pulmonary disease, unspecified
CPT/HCPCS: 99284; 96360; 86900; 86901; 36415; 86850; 85025; 85610; 80053; 81001; 74174; J7040

== ENCOUNTER → 2020-06-21 | Outpatient (CLI) | payer MEDICARE, OTHER ==
[2020-06-21 14:56] LABS: HEMATOCRIT 33.6 % (36.0-47.0); HEMOGLOBIN 11.6 g/dL (12.0-15.5); MEAN CORPUSCULAR HEMOGLOBIN 32.4 pg (27.0-33.4); MEAN CORPUSCULAR HGB CONC 34.6 g/dL (32.0-36.0); MEAN CORPUSCULAR VOLUME 94 fl (80-97); PLATELET COUNT 133 10^3/uL (150-450); RED BLOOD COUNT 3.59 10^6/uL (3.72-5.28); WHITE BLOOD COUNT 3.2 10^3/uL (4.0-10.5)
[2020-06-21 15:08] LABS: IRON(TIBC) 60.1 ug/dL (37-170)
== END ==
LOC: OD 13:27
PROVIDERS: ATTEND Physician Assistant
DX: K62.5 Hemorrhage of anus and rectum (principal)
CPT/HCPCS: 36415; 82728; 83540; 83550; 85027

== ENCOUNTER → 2020-11-06 | Outpatient (CLI) | payer MEDICARE, OTHER ==
[2020-11-06 10:16] LABS: HEMATOCRIT 37.7 % (36.0-47.0); HEMOGLOBIN 12.7 g/dL (12.0-15.5); MEAN CORPUSCULAR HEMOGLOBIN 32.5 pg (27.0-33.4); MEAN CORPUSCULAR HGB CONC 33.7 g/dL (32.0-36.0); MEAN CORPUSCULAR VOLUME 97 fl (80-97); PLATELET COUNT 129 10^3/uL (150-450); RED BLOOD COUNT 3.91 10^6/uL (3.72-5.28); RED CELL DISTRIBUTION WIDTH 13.6 % (11.5-14.0)
[2020-11-06 10:31] LABS: IRON(TIBC) 58.7 ug/dL (37-170)
== END ==
LOC: OD 09:29
PROVIDERS: ATTEND Physician Assistant
DX: D50.0 Iron deficiency anemia secondary to blood loss (chronic) (principal)
CPT/HCPCS: 36415; 82728; 83540; 83550; 85027